=== PATIENT | female | born 1950 | race African-American/Black ===

== ENCOUNTER 2016-05-12 13:49 | Inpatient (IN) | payer OTHER ==
[2016-05-12 14:08] LABS: ALLEN TEST NO; BE -8.9 mmoll (-3.0-3.0); BLOOD TYPE ARTERIAL; DRAW SITE R FEMORAL; METHB 1.4 % (0.0-1.5); PCO2(98.6) 27 mmHg (35-45); PO2(98.6) 589 mmHg (60-100); SAMPLE BLOOD; SAO2 99.5 % (95.0-100.0); THB 10.5 g/dL (11.5-17.4); pH(98.6) 7.36 (7.35-7.45)
[2016-05-12 14:12] LABS: MODALITY AMBU BAG
[2016-05-12 14:26] LABS: MANUAL DIFF NEEDED? NO
--- NOTE | 2016-05-12 14:34 | PROVIDER DOCUMENTATION ---
HPI-Cardiopulmonary Arrest - General Source: patient - History of Present Illness-C/P Arrest Reason for Code Blue?: full arrest Witnessed arrest?: No Bystander CPR?: Yes (family member ) CPR initiated before doctor arrival?: Yes (family member ) Down-time before ACLS?: unknown Initial Findings: unresponsive Treatment initiated prior to doctor arrival?: Initiated intubated, Initiated CPR /thumper (thumper), Initiated IV fluids, Initiated epinephrine #mg (4) Similar Symptoms Previously?: No Recently seen or treated by another doctor?: Yes (seen Thursday in ED ) - Pre-hospital Treatment EMS Initial Findings:: unresponsive Pre-hospital Treatment: Initiated intubated, Initiated CPR, Initiated IV fluids , Initiated epinephrine - General Chief Complaint: Full Arrest Stated Complaint: Full Arrest Time Seen by Provider: 05/12/16 14:05 Allergies/Adverse Reactions: Allergies Allergy/AdvReac Type Severity Reaction Status Date / Time No Known Allergies Allergy Verified 04/14/16 19:20 Home Medications: Home Medication List Medication Instructions Recorded Confirmed Last Taken Type Carvedilol [Coreg] 12.5 mg PO BID 12/24/11 05/12/16 05/12/16 09:00 History 12.5 MG Simvastatin [Zocor] 20 mg PO DAILY 12/24/11 05/12/16 05/12/16 09:00 History 20 MG Loratadine [Claritin] 10 mg PO DAILY 01/22/12 05/12/16 05/12/16 09:00 History 10 MG Trazodone [Desyrel] 50 mg PO QHS 01/22/12 05/12/16 05/12/16 09:00 History 50 MG Omeprazole [Prilosec] 20 mg PO QPM #0 capsule 10/28/12 05/12/16 05/12/16 09:00 Rx 20 MG Cinacalcet [Sensipar] 30 mg PO DAILY 05/08/13 05/12/16 05/12/16 09:00 History 30 MG Donepezil [Aricept] 10 mg PO DAILY 01/18/14 05/12/16 05/12/16 09:00 History 10 MG Calcium Acetate [Phoslo] 1,334 mg PO TID CC #0 tablet 01/24/14 05/12/16 09:00 Rx 1334 MG Nitroglycerin Sl [Nitroglycerin] 0.4 mg SL PRN PRN #0 tablet 01/24/14 05/12/16 05/12/16 09:00 Rx 0.4 MG Beaver-3 Fatty Acids [Fish Oil 1,000 mg PO BID #0 capsule 01/24/14 05/12/1605/12 09:00 Rx Concentrate] 1000 MG Mirtazapine [Remeron] 30 mg PO DAILY 07/13/14 05/12/16 05/12/16 09:00 History 30 MG Albuterol Sulfate [Proair 2 puff IH Q6H PRN PRN 08/01/15 05/12/16 05/12/16 09: 00 History Respiclick] 2 PUFF Hydrocodone/Acetaminophen [[place] 1 each PO PRN PRN 08/01/15 05/12/16 05/12/16 09 :00 History 7.5-325 Tablet] 1 EACH Acetaminophen with Codeine 1 each PO Q6H PRN PRN #10 tablet 04/13/16 05/12/16 09:00 Rx [Tylenol with Codeine #3] 1 EACH Cephalexin [Keflex] 500 mg PO BID #14 capsule 04/14/16 05/12/16 05/12/16 09:00 Rx 500 MG Hydrocodone/APAP 7.5 mg/325 mg 1 each PO Q6H PRN PRN #10 tablet 04/14/1605/12/16 09:00 Rx [[place]-7.5] 1 EACH Cephalexin [Keflex] 500 mg PO Q6HR #28 capsule 05/10/16 05/12/16 05/12/16 09:00 Rx 500 MG Guaifenesin/D-Methorphan Hb/PE 1 each PO Q6-8H PRN PRN #14 tablet 05/10/1605/1205/12/16 09:00 Rx [Deconex Dmx Tablet] 1 EACH Memantine HCl [Namenda] 10 mg PO DAILY 05/12/16 05/12/16 05/12/16 09:00 History 10 MG - History of Present Illness-C/P Arrest Initial Comments: Pt is 66 y/o F presents to the ED via EMS for full arrest. EMS states that Pt's family was taking Pt to PCP due to AMS and family member went to get a wheelchair and when family member came back Pt was unresponsive. EMS states family member started CPR in car. EMS states epi given times 4 prior to EMS arrival. Pt was intubated CAR SCRUBBER by EMS. Pt arrived with tube in place and gaby in position and on. Gaby stopped at 1343 and pulse check and no pulse found and Gaby resumed. Pt had IO placed at 1346. Pt was given epi at 1347 and bicarb at 1348. Gaby stopped at 1349 with no pulse found and then Gaby resumed. Pt was given at 1351. Gaby was stopped and pulse was found per Dr. Yoo. Pt was given 2mg narcan at 1355. Pt was given epi and 150 mg of amiodarone at 1357 (Nisha Goldstein) Review of Systems - Adult - REVIEW OF SYSTEMS - ADULT ROS:: unobtainable per condition Constitutional: reports: no symptoms reported Eyes: reports: no symptoms reported Ears, Nose, Mouth & Throat: reports: no symptoms reported Cardiovascular: reports: no symptoms reported Respiratory: reports: no symptoms reported Gastrointestinal: reports: no symptoms reported Genitourinary: reports: no symptoms reported Musculoskeletal: reports: no symptoms reported Integumentary: reports: no symptoms reported Neurological: reports: no symptoms reported Psychiatric: reports: no symptoms reported Endocrine: reports: no symptoms reported Hematologic/Lymphatic: reports: no symptoms reported Allergic/Immunologic: reports: no symptoms reported All Other Systems: Reviewed and Negative Past History - Adult - PAST MEDICAL HISTORY-ADULT Review of Records: reports: Nursing Assessment Review, Medications Reviewed, Social history reviewed & non-contributory. Major Childhood Illnesses: reports: denies history Cardiovascular: reports: cardiac disease, CHF, HTN, hyperlipidemia, murmur Respiratory: reports: COPD Gastrointestinal: reports: denies history Obstetrical/Gynecological: reports: other (hx of right breast cancer) Genitourinary: reports: dialysis (Tuesdays, and Saturdays), ESRD, kidney disease Musculoskeletal: reports: chronic pain, intervertebral disc disease, neck/back injury Neurological: reports: Alzheimer's, CVA Psychiatric: reports: depression Endocrine/Immune: reports: denies history Other Conditions: reports: denies history - PRIOR SURGERIES/PROCEDURES Surgical/Procedure History: reports: BTL, back/neck (back Sx), other (right breast mestectomy, dominic hammertoe Sx) - PRIOR HOSPITALIZATIONS Prior Hospitalizations: reports: for other non-related - IMMUNIZATION STATUS Childhood Immunizations: See Nurse Assessment Flu Vaccine: See Nurse Assessment - FAMILY HISTORY Family History: reviewed, not pertinent - SOCIAL HISTORY Smoking: quit less than 1 year, cigarettes Provider spent 3-5 mins advising pt. on dangers of tobacco.: Discussed manners to quit use, and f/u contacts for add'l counseling. Substance Use: denies Living Situation: family Physical Exam-General - PHYSICAL EXAM-ADULT Initial Vital Signs Reviewed: Yes - CONSTITUTIONAL General Appearance: severe distress. negative: appears well (ill in appearance) , alert - EYES Eyes: pink conjunctivae, fundi clear, no AV nicking, other (pupils dilated and non reactive) - HEAD, EARS, NOSE, MOUTH & THROAT HENMT: normocephalic/atraumatic, other (tube placed). negative: moist mucous membranes (dry) - NECK Neck: supple - RESPIRATORY Respiratory: other (tube in place and ambu bag in use) - CARDIOVASCULAR Cardiovascular: normal peripheral pulses, regular rate, rhythm, no edema, no gallop, no JVD - GASTROINTESTINAL (ABDOMEN) Abdominal Exam: soft, no organomegaly, no pulsatile mass. negative: distended - LYMPHATIC Lymphatic: no adenopathy - MUSCULOSKELETAL Extremity: slow capillary refill. negative: normal gait, no pedal edema - SKIN Integumentary: normal turgor, warm/dry, pallor - NEUROLOGIC Neurologic: negative: camp assistant II-XII nml as tested, grossly normal, no motor/ sensory deficits - PSYCHIATRIC Psych/Mental Status: negative: normal mood/affect, normal thought content, normal thought process, oriented x 3 Progress - EKG 1 Time of EKG reading by physician:: 14:07 EKG Read and Signed by:: Jennifer Yoo EKG Interpretation (*Must complete 3 of following elements*): Abnormal Rate: 52 Rhythm: wide QRS rhythm Comments: L axis deviation; septal infarct, age undetermined; ST depression in V4-V6 2 Time of EKG reading by physician:: 14:21 EKG Read and Signed by:: Jennifer Yoo EKG Interpretation (*Must complete 3 of following elements*): Abnormal Rate: 90 Rhythm: normal sinus rhythm Comments: septal infarct, age undetermined; no STEMI; ST depression in 2,3, AVR - XRAY 1 XRAY: Bilateral XRAY Study: Chest Impression: Abnormal XRAY Interpretation: ETT looks good. Pulm edema - CT/MRI 1 CT Study: Cervical Spine (multilevel degenerative disease. associated moderate spinal stenosis at C5 and C6. No evidence of fracture or subluxation. ill- defined infiltrates noted at the visualized bilateral lung apices.), Head ( stable exam compared to 05/10/2016. no visible acute process. no hemorrhage or mass effect) Impression: Abnormal - CONSULTS/PCP/HOSPITALIST Notification #1 *Consult/PCP/Hospitalist*: Dr. Guzmán Time Discussed: 16:53 (Dr. Guzmán accepted admit ) Reason/Comments: Dr. Yoo consulted with Dr. Guzmán about admit of PT Consult Disposition: Admit - PLAN OF CARE/RESULTS Progress/Plan/Lab Results: Laboratory Tests 05/12/16 05/12/16 14:05 14:08 WBC 4.40 L RBC 3.12 L Hgb 10.1 L Hct 31.9 L MCV 102.2 H MCH 32.4 H MCHC 31.7 L RDW Std Deviation 15.0 H Plt Count 77 L MPV 11.8 H Immature Gran % (Auto) 1.4 H Neut % (Auto) 56.2 Lymph % (Auto) 38.0 [place] % (Auto) 3.4 Eos % (Auto) 0.5 Baso % (Auto) 0.5 Immature Gran # (Auto) 0.06 H Neut # (Auto) 2.48 Lymph # (Auto) 1.67 [place] # (Auto) 0.15 Eos # (Auto) 0.02 Baso # (Auto) 0.02 Specimen Type ARTERIAL Sample Site R FEMORAL pH 7.36 pCO2 27 L pO2 589 H HCO3 18.0 L Base Excess -8.9 L Oxyhemoglobin 97.2 ABG O2 Sat (Calculated) 16.0 ABG O2 Saturation 99.5 ABG Carboxyhemoglobin 0.90 ABG Methemoglobin 1.4 James Test NO A-a O2 Difference 90.0 Total Hemoglobin 10.5 L Lactate 9.60 H* Liter Flow 15.0 Blood Gas Modality AMBU BAG FiO2 % 100.0 Orders Category Date Time Status Cardiac Monitoring DIRECTED Care 05/12/16 14:05 Active Saline Loc NOW Care 05/12/16 14:05 Active CHEST-PORTABLE [RAD] Stat Exams 05/12/16 14:06 Taken HEAD/C-SPINE W/O CONTRAST [CT] Stat Exams 05/12/16 14:37 Ordered ABG [RESP] Routine Lab 05/12/16 14:05 Completed CBC WITH ELECTRONIC DIFF [HEME] Stat Lab 05/12/16 14:08 Results CK PROFILE [SP CHEM] Stat Lab 05/12/16 14:08 Received COMPREHENSIVE METABOLIC PANEL [CHEM] Stat Lab 05/12/16 14:08 Received D-DIMER [CHEM] Stat Lab 05/12/16 14:08 Received MAGNESIUM [CHEM] Stat Lab 05/12/16 14:08 Received PRO B-NATRIURETIC PEPTIDE Stat Lab 05/12/16 14:08 Received PROTIME WITH INR [COAG] Stat Lab 05/12/16 14:08 Received PTT [COAG] Stat Lab 05/12/16 14:08 Received TROPONIN T Stat Lab 05/12/16 14:08 Received Dextrose 5%-0.45% NaCl Inj [D5 1/2 Ns] 250 ml Med 05/12/16 14:30 Active Norepinephrine [Levophed] 8 mg IV As Directed Ventilator Order Stat Oth 05/12/16 14:35 Active Vital Signs - 24 hr 05/12/16 05/12/16 05/12/16 13:57 14:16 14:35 Pulse Rate 61 102 H 68 Respiratory 17 Rate Blood Pressure 204/105 170/105 119/72 O2 Sat by Pulse 93 L Oximetry 05/12/16 05/12/16 14:36 14:41 Pulse Rate 95 H 63 Respiratory 14 20 Rate Blood Pressure 109/69 O2 Sat by Pulse Oximetry (Nisha Goldstein) Departure - Departure Time of Disposition Order: 16:52 Certified Medical Emergency: Emergent - Critical Care Note Total Time (mins): 35 Critical Care Statement: This patient required my direct personal management to treat or rule out processes, the absence of which, could potentiallly result in sudden, clinically significant life or limb threatening deterioration. - Departure DIAGNOSIS: Cardiac arrest, Elevated d-dimer Pulmonary edema Qualifiers: Chronicity: acute Qualified Code(s): J81.0 - Acute pulmonary edema Disposition: ADMITTED INPATIENT 09 Condition: Stable Attestation - Scribe Verification/Attestation Scribe:: Nisha Goldstein Acting as Scribe for:: Jennifer Yoo Scribe documention review:: This chart was documented by a scribe and accurately reflects the service the provider performed and the decisions made by the provider. Physician Attestation
[2016-05-12 14:45] LABS: BASO% 0.5 % (0.0-0.8); EOS# 0.02 X1000 (0.0-0.7); EOS% 0.5 % (0.0-10.0); HEMATOCRIT 31.9 % (37.0-47.0); HEMOGLOBIN 10.1 g/dL (12.0-16.0); IMM GRAN# 0.06 X1000 (0.0-0.04); IMM GRAN% 1.4 % (0.0-0.5); LYMPH# 1.67 X1000 (1.2-3.4); MCH 32.4 PG (27-31); MCHC 31.7 g/dL (33-37); MCV 102.2 FL (81-99); MONO# 0.15 X1000 (0.11-0.59); MONO% 3.4 % (1.7-9.3); MPV 11.8 FL (7.4-10.4); NEUT% 56.2 % (42.2-75.2); PLT 77 X1000 (130-400); RBC 3.12 XMIL (4.2-5.4)
[2016-05-12] MEDS: LEVOPHED 8 MG in D5 1/2 NS 250 ML IV SCH ×3 (14:48→17:02)
[2016-05-12 14:52] LABS: INR 1.24; PROTIME 13.2 Seconds (9.2-11.7); PTT 35.1 Seconds (22.0-36.0)
[2016-05-12] MEDS ORDERED: NS 2,000 ML ONE (15:00)
[2016-05-12 15:06] LABS: ALBUMIN 3.3 g/dL (3.5-5.0); CALCIUM 7.8 mg/dL (8.8-10.2); MAGNESIUM 2.4 mg/dL (1.5-2.7); POTASSIUM 4.5 mmol/L (3.5-5.1); TOTAL BILIRUBIN 0.33 mg/dL (0.20-1.00); TOTAL PROTEIN 6.1 g/dL (6.3-8.3)
[2016-05-12 15:32] LABS: CK INDEX 2.1 (0.0-2.5); CK-MB 4.8 ng/mL (0.0-5.0)
--- NOTE | 2016-05-12 15:39 | Diag Imaging Result Document ---
PROCEDURE NAME: CHEST-PORTABLE - 05/12/2016 PORTABLE SUPINE CHEST: COMPARISON: 05/10/2016. FINDINGS: An endotracheal tube has been placed. The tip lies approximately 4 cm above the munira. The heart is mildly prominent. Mild increased interstitial markings believed to be pulmonary edema. No consolidation. No pleural effusion is identified. IMPRESSION: 1. Endotracheal tube is in good position. 2. Infiltrates believed to be pulmonary edema with mild cardiomegaly.
[2016-05-12] MEDS ORDERED: EPINEPHRINE 4 MG in NS 250 ML IV SCH (15:45)
--- NOTE | 2016-05-12 15:48 | Diag Imaging Result Document ---
PROCEDURE NAME: HEAD/C-SPINE W/O CONTRAST - 05/12/2016 CT HEAD WITHOUT CONTRAST: TECHNIQUE: A dose reduction protocol was used. COMPARISON: 05/10/2016. FINDINGS: There are mild atrophic changes and mild chronic appearing microvascular ischemic changes similar to the previous exam. There is no evidence of recent infarct, although acute infarcts may not be immediately visible. There are chronic basal ganglia calcifications noted. There is no evidence of intracranial hemorrhage, mass effect, midline shift, or hydrocephalus. There is no skull fracture. IMPRESSION: Stable exam compared to 05/10/2016. No visible acute process. No hemorrhage or mass effect. CT CERVICAL SPINE WITHOUT CONTRAST: TECHNIQUE: A dose reduction protocol was used. Axial and reformatted sagittal and coronal images are obtained. COMPARISON: No comparison exam. FINDINGS: There is multilevel degenerative disease. There are associated posterior osteophytes and calcified posterior longitudinal ligament which produce moderate spinal stenosis at C5 and C6. There is no fracture identified. There is no subluxation identified. There are atherosclerotic calcifications noted at the left carotid bulb region. There are ill- defined infiltrates noted at the bilateral lung apices. IMPRESSION: 1. Multilevel degenerative disease. Associated moderate spinal stenosis at C5 and C6. No evidence of fracture or subluxation. 2. Ill-defined infiltrates noted at the visualized bilateral lung apices.
[2016-05-12] MEDS ORDERED: LASIX IV ONE (16:11)
[2016-05-12] MEDS: NS 1,000 ML IV ONE ×2 (16:16→17:01)
[2016-05-12] MEDS ORDERED: NS 1,000 ML IV ONE (16:17)
[2016-05-12] MEDS ORDERED: DUONEB (A & A) INH PRN (18:26)
[2016-05-12 18:59] LABS: ALLEN TEST YES; BLOOD TYPE ARTERIAL; DRAW SITE R RADIAL; METHB 1.2 % (0.0-1.5); MODALITY VENTILATOR; O2(CT) 12.3 mL/dL (15.0-23.0); PCO2(98.6) 43 mmHg (35-45); PO2(98.6) 67 mmHg (60-100); SAMPLE BLOOD; SAO2 92.6 % (95.0-100.0); SRATE 18 BPM; THB 9.6 g/dL (11.5-17.4); TVOL 400 mL
[2016-05-12] MEDS ORDERED: NS ONE (19:00)
[2016-05-12] MEDS ORDERED: LR ONE (19:00)
[2016-05-12] MEDS ORDERED: CORDARONE ONE (19:00)
[2016-05-12] MEDS ORDERED: SODIUM BICARBONATE 8.4% ONE (19:00)
[2016-05-12] MEDS ORDERED: EPINEPHRINE SYRINGE ONE (19:00)
[2016-05-12 19:07] LABS: FREE T4 0.88 ng/dL (0.93-1.70)
[2016-05-12] MEDS: DUONEB (A & A) INH SCH ×2 (19:28→22:56)
[2016-05-12] MEDS: NS 1,000 ML IV SCH (19:30)
[2016-05-13] MEDS ORDERED: VALIUM IV ONE (00:35)
[2016-05-13] MEDS ORDERED: DIPRIVAN 1% 100 ML ONE (02:24)
[2016-05-13] MEDS: DIPRIVAN 1% 100 ML IV SCH ×4 (02:34→20:46)
[2016-05-13] MEDS: DUONEB (A & A) INH SCH ×6 (02:55→23:14)
--- NOTE | 2016-05-13 04:22 | HISTORY AND PHYSICAL ---
HISTORY OF PRESENT ILLNESS: Ms. Murray apparently was having a little more trouble with her speech and a little more trouble with her writing. She has residual dysphagia from a previous CVA. They noticed that her writing maybe had improved on Thursday. At any rate, she is also in end- stage renal disease. Brought her in. I believe that the story was they brought her into Dr. Valverde's office and was waiting in the waiting room when she became unresponsive, started drooling. They started CPR. They gave her a couple of epinephrine, I think 1 atropine. They have given her some amiodarone. Continued the CPR when she got here in the emergency room for a good 15 minutes and did get a complex back and she was intubated. They denied any history of chest pain, fever, chills, or pleuritic pain. PAST MEDICAL HISTORY: This is a 66-year-old, black female: 1. End-stage renal disease. 2. Congestive heart failure. 3. Dyslipidemia. 4. Depression. 5. Expressive aphasia. 6. Probably some vascular dementia. PAST SURGICAL HISTORY: She has had back surgery. She has had a right mastectomy, had toe surgery. FAMILY HISTORY: Noncontributory according to old records. SOCIAL HISTORY: No tobacco or ethanol. ALLERGIES: Reports no known drug allergies in the past. REVIEW OF SYSTEMS: I am unable to get review of systems except according to family as above. PHYSICAL EXAMINATION: VITAL SIGNS: In the emergency room, pulse was in the 60s, respiration rate set on the ventilator 15, blood pressure has been pretty good 120s-140s systolic and diastolic 60s-70s. Pulse 80. Saturations were 99% on mechanical ventilator. Weight 171 pounds. Height 5 feet 9 inches. LUNGS: Clear anterolateral. CARDIOVASCULAR: Regular rhythm and rate. Appears to be in sinus rhythm on the monitor. ABDOMEN: Nontender and nondistended. Positive bowel sounds. EXTREMITIES: Without clubbing, cyanosis, or edema. Right arm with AV fistula, palpable bruit. Extremities warm. VASCULAR: Carotid, radial, and femoral pulses appear to be 2+ and symmetrical. LABORATORY DATA: White count 4400, hematocrit 31, platelet count 77,000. Sodium 135, potassium 4.5, chloride 88, bicarb 18, BUN 50, creatinine 7.7, blood sugar 223, calculated osmolality 290, calcium 7.8, magnesium 2.4. Liver functions: AST 65, ALT was 45, alkaline phosphatase 85. Troponin was 0.041. ProBNP was 35,000. Prothrombin time 13.2, PTT 35. Blood gases: PH is 7.36, pCO2 of 27, PO2 was 589, O2 saturation 97%. Her lactic level was 9.6. Is on 100% Ambu bag when they get the blood gases. Micro respiratory specimen sent, 1+ white blood cells, rare epithelial, gram positive is 1+ so nonspecific. Chest x-ray report: Endotracheal tube in good position, infiltrates believed to be pulmonary edema, mild cardiomegaly. Head and cervical spine CT: Stable exam compared to 05/10/2016. No visible acute process. There are mild atrophic changes. Mild chronic appearing microvascular ischemic changes similar to the previous exam. No evidence of recent infarct, although acute infarction is not immediately visible. Multilevel degenerative disease in the cervical spine, C5 and C6 with spinal stenosis. No evidence of fracture or subluxation. Ill-defined infiltrates in the lung apices. Status post cardiac, respiratory arrest. It sounds like it may have been primary respiratory with pulmonary venous hypertension. Unknown if there is some underlying ischemia. Initial troponin is elevated, although that is fairly nonspecific, especially with end-stage renal disease. She is intubated at the present time. We will check serial cardiac enzymes, troponin and CPK. Her electrocardiogram shows a wide QRS complex, left axis deviation, nonspecific T-wave inversion in the inferior and anterolateral leads. No specific evidence of ischemia. Looking back, she has had an echocardiogram done on 08/01/2015, read by Dr. Blanca Tong. Left ventricle normal size, mild concentric hypertrophy with preserved overall systolic function. Ejection fraction 50-55%. Could not exclude very subtle hypokinesis in the very basal portion posterolateral wall. The right ventricle was intact with preserved right ventricular function. Pulmonary pressures were 35- 40. Incidental finding, abdominal aorta appears to be calcified. Could not exclude slight dilatation of abdominal aorta. ASSESSMENT AND PLAN: 1. Primary respiratory arrest, appears possible flash edema, pulmonary venous hypertension. Could be some underlying ischemia. I think we are going to have to repeat the echocardiogram and compare it to the one done on 08/01/2015. Also, we will probably get an abdominal ultrasound. They mention there was a possibility of abdominal aneurysm, aortic aneurysm, so we have to visualize that. We will keep her on the ventilator, try and diurese her. Ask cardiology to assist in workup and get pulmonary involved as well. See if we can extubate. 2. End-stage renal disease. I suspect we are going to need help with volume from hemodialysis. We will get Dr. Posadas involved. Intravenous Lasix will be very ineffective. Blood pressures look good. We may consider some nitrates, depending on what cardiology wants to do. 3. Diabetes mellitus type 2. Check patterned sugars. 4. History of cerebrovascular accidents in the past with expressive aphasia. The CT scan does not show anything new. We will see how she does neurologically. May need further radiographic evaluation including an MRI of her head, depending on how we do. 5. History of hyperlipidemia. We will check a lipid profile again and see how we are doing. 6. Note, she has had a history of cerebrovascular accident. There is some note about possible vascular dementia and she has had chronic residual expressive aphasia in the past. Aware.
[2016-05-13 04:39] LABS: ALLEN TEST YES; BE -4.9 mmoll (-3.0-3.0); BLOOD TYPE ARTERIAL; DRAW SITE R RADIAL; METHB 1.7 % (0.0-1.5); O2(CT) 17.9 mL/dL (15.0-23.0); PCO2(98.6) 39 mmHg (35-45); PO2(98.6) 121 mmHg (60-100); SAMPLE BLOOD; SAO2 98.9 % (95.0-100.0); SRATE 18 BPM; THB 13.2 g/dL (11.5-17.4); TVOL 400 mL; pH(98.6) 7.33 (7.35-7.45)
[2016-05-13 04:41] LABS: MODALITY VENTILATOR
--- NOTE | 2016-05-13 05:56 | EKG Report ---
Test Performed on : 05/12/2016 2:21:36 PM Test Reason : No Order in [employer] Blood Pressure : / mmHG Vent. Rate : 090 BPM Atrial Rate : 090 BPM P-R Int : 196 ms QRS Dur : 098 ms QT Int : 412 ms P-R-T Axes : 061 -26 020 degrees QTc Int : 504 ms Normal sinus rhythm. Septal infarct (cited on or before 21-SEP-2012) Abnormal ECG When compared with ECG of 01-AUG-2015 05:59, T wave inversion no longer evident in Inferior leads Nonspecific T wave abnormality has replaced inverted T waves in Lateral leads QT has lengthened Unconfirmed Result
[2016-05-13 06:07] LABS: CALCIUM 7.6 mg/dL (8.8-10.2)
[2016-05-13 06:42] LABS: CK INDEX 2.4 (0.0-2.5); CK-MB 6.73 ng/mL (0.0-5.0)
[2016-05-13] MEDS: NS 1,000 ML IV SCH (07:44)
--- NOTE | 2016-05-13 07:44 | Diag Imaging Result Document ---
PROCEDURE NAME: CHEST-PORTABLE - 05/13/2016 SINGLE FRONTAL RADIOGRAPH OF THE CHEST: COMPARISON: 05/12/2016. FINDINGS: There is a newly placed ET tube with the tip projecting over the trachea and above the munira at about the T4 level. There is an NG tube that projects below the diaphragm and out of the field of view. There are mild bilateral increased interstitial markings that may have slightly improved at the right upper lung zone as compared to the previous study. No new consolidations are identified. Cardiac silhouette is stable. IMPRESSION: Increased interstitial markings similar to the previous study with, perhaps, slight improvement at the right upper lung zone.
--- NOTE | 2016-05-13 08:04 | OPERATIVE NOTE ---
PROCEDURE DATE: 05/12/2016 PREOPERATIVE DIAGNOSIS: Cardiac arrest. POSTOPERATIVE DIAGNOSIS: Cardiac arrest. PROCEDURE PERFORMED: Right femoral central venous line placement. COMPLICATIONS: None. ESTIMATED BLOOD LOSS: 20 mL. SPECIMENS: None. ANESTHESIA: None. OPERATIVE INDICATIONS: A 66-year-old, female who came in as a code to the emergency department. She was coded and ultimately resuscitated. The peripheral access was limited related to her end-stage renal disease. She has had a fistula in her right upper extremity. I infiltrated IV with vasopressor in the left upper extremity. Central access was needed for ongoing resuscitation and vasopressor support. OPERATIVE NOTE: The family had left and were in the process of being contacted regarding her clinical state and the need for the procedure. However, given the urgent nature and lack of intravenous access, emergent central line was indicated. Her right groin was prepped with chlorhexidine solution after confirming the patient and draped in the usual fashion. Using anatomic landmarks, we were able to palpate the femoral pulse in the right groin and access the vein medially. We did access the artery on the first pass. Arterial blood was noted. We held pressure here and accessed more medially. We were able to ultimately access the femoral vein. Dark nonpulsatile venous blood was noted on return. The wire threaded easily. I made a skin keren, dilated the tract using Seldinger technique. Placed a pre-flushed catheter, triple-lumen, 7- Armenian catheter. Placed sterile caps on all lumens. All ports withdrew dark blood and flushed easily. We secured it with a silk suture. Sterile dressing was applied. No identified complications. Tolerated the procedure well.
--- NOTE | 2016-05-13 08:39 | CONSULTATION ---
DATE OF CONSULTATION: 05/12/2016 REQUESTING PHYSICIAN: Dr. Guzmán. REASON FOR CONSULTATION: Cardiopulmonary arrest. HISTORY OF PRESENT ILLNESS: Ms Murray is a 66-year-old black female, end-stage renal disease on hemodialysis, coronary artery disease, prior stroke and aphasia, who is being brought to the family physician for altered mental status when she became unresponsive. The family began CPR in the car and EMS was called. The patient was intubated by EMS and CPR was continued. Exact downtime is unknown, but was at least 8 minutes after arrival to the emergency room. The patient is now on mechanical ventilation. She is requiring Levophed for blood pressure support. She is unresponsive, but does have an occasional startle response with eye opening. PAST MEDICAL HISTORY/PROBLEM LIST: 1. End-stage renal disease on hemodialysis. 2. Coronary artery disease. Current anatomy not known by this practitioner. 3. History of stroke with aphasia. 4. History of congestive heart failure. 5. Depression. 6. Dyslipidemia. 7. Possible vascular dementia. SURGICAL HISTORY: 1. Status post back surgery. 2. History of right mastectomy. SOCIAL HISTORY: Lives with family. No documented alcohol or tobacco use. FAMILY HISTORY: Noncontributory to her current presentation. REVIEW OF SYSTEMS: Cannot be obtained. PHYSICAL EXAMINATION: General: Reveals an elderly black female on mechanical ventilation. She does not respond to voice or pain. She does occasionally startle. She is on vasopressors. Vital Signs: Blood pressure 126/75, heart rate 58, respiration rate 18, oxygen saturation 100%. HEENT: Pupils are midpoint and poorly reactive. Oropharynx evaluation reveals an endotracheal tube in place. Neck: Supple. Chest: Reveals good air entry bilaterally. Cardiac Exam: Decreased rate, regular rhythm. Abdomen: Soft. Extremities: Cold to the touch. LABORATORIES: Arterial blood gas at 1405 hours today revealed a pH of 7.37, pCO2 27, PO2 of 586 with a lactate of 9.6. Repeat arterial blood gas pending. IMAGING: Chest x-ray reveals mild cardiomegaly and pulmonary edema. CT scan of the brain reveals no acute process. IMPRESSION: A 66-year-old with end-stage renal disease, coronary artery disease, prior stroke, who has sustained a cardiopulmonary arrest. The patient has had a significant downtime before return of spontaneous circulation. RECOMMENDATIONS: 1. Continue full ventilatory support. 2. Vasopressors as needed to maintain a mean arterial pressure greater than 65. 3. Routine gastric acid suppression. 4. Reduce oxygen concentration as necessary to prevent hyperoxia. 5. Additional recommendations pending hospital course. With the underlying vascular issues, prolonged CPR, full recovery is not expected.
[2016-05-13 09:07] LABS: CK INDEX 2.2 (0.0-2.5); CK-MB 5.58 ng/mL (0.0-5.0)
--- NOTE | 2016-05-13 09:11 | Diag Imaging Result Document ---
PROCEDURE NAME: US ABDOMEN-COMPLETE - 05/12/2016 COMPLETE ABDOMINAL ULTRASOUND: COMPARISON: 09/17/2015. FINDINGS: No gallstones are appreciated. However, the gallbladder wall appears to be at least mildly thickened measuring up to 4 mm. It also appears edematous, and there is trace fluid tracking around the gallbladder. Cholecystitis cannot be excluded. However, sonographic Landaverde's sign was reported to be negative by the technologist. The common bile duct is within normal limits measuring up to 6 mm in diameter. The tail of the pancreas is obscured by bowel gas. The remainder of the pancreas is unremarkable. The liver, spleen, and IVC are grossly unremarkable. There is aortic atherosclerotic calcification. The distal aorta is obscured, so no aneurysm can be excluded distally. No definite aneurysm can be identified involving the visualized portion of the aorta. Both kidneys are atrophic and exhibit increased echotexture, which is a nonspecific indicator of medical renal disease. The right kidney measures up to 7.1 cm and the left kidney measures up to 7.2 cm in the greatest dimensions. There are multiple cysts involving both kidneys. The largest on the right measures up to 1.8 cm and the largest on the left measures up to 2.3 cm in the greatest dimensions. No definite solid renal mass can be identified sonographically. There is no evidence of hydronephrosis. IMPRESSION: 1. Gallbladder wall thickening with suggestion of wall edema and pericholecystic fluid. Cholecystitis cannot be excluded. However, there are no gallstones and the sonographic Landaverde's sign was reported to be negative by the technologist. Please correlate clinically. 2. No discrete aneurysm can be identified involving the visualized portion of the aorta. However, the distal aorta is obscured by bowel gas, and an aneurysm here cannot be excluded. 3. Bilateral atrophic echogenic kidneys, which is a nonspecific indicator of medical renal disease as well as multiple bilateral renal cysts.
--- NOTE | 2016-05-13 09:16 | CONSULTATION ---
DATE OF CONSULTATION: 05/13/2016 REQUESTING PHYSICIAN: Hospitalist service. REASON FOR CONSULTATION: The patient suffered an [id number] cardiac arrest. CPR given. The patient is in the intensive care unit unresponsive. HISTORY: Mrs. Murray is an unfortunate 66-year-old black female who has been previously followed by Dr. Blanca Tong and Dr. Garrick Valverde. Apparently, she suffered an out-of- hospital cardiac arrest when she was at the doctor's office. She was assessed by the emergency medical personnel and required CPR. She was eventually intubated and brought to the ICU for further care. Initially, the patient required Levophed. However, at this time she is not on any pressors. PAST HISTORY: Her past history can only be obtained through review of the records. The patient has a history of end-stage renal disease. She has been on hemodialysis for some time. She has had a history of hypertension. The patient has a history of breast cancer in the past. She had a stroke with some expressive aphasia. She has previously undergone cardiac catheterization in January of 2014, precisely after a cardiac arrest. At that time, Dr. Gilbert Pate stated that the patient had only mild to moderate coronary heart disease without any flow-limiting lesions. Of note, the electrocardiogram obtained on the day of the event does not seem to be much different than other electrocardiograms that we have on record. SURGICAL HISTORY: Positive for back surgery, mastectomy. She has had a tubal ligation. She has had hammertoe surgery. SOCIAL HISTORY: She is . She has 5 children. Not a drinker, not a smoker. FAMILY HISTORY: Positive for coronary heart disease. REVIEW OF SYSTEMS: At this time could not be obtained. The patient is intubated. Family is not around. HOME MEDICATIONS: Her home medications at the time of initial evaluation are the following: She is on Namenda 10 mg daily, trazodone 50 mg at bedtime, Zocor 10 mg daily, Prilosec 20 mg at bedtime, nitroglycerin 0.4 mg sublingual, mirtazapine 30 mg daily, Claritin 10 mg daily, hydrocodone/APAP q.6 h., guaifenesin/dextromethorphan q.6 h., Aricept 10 mg daily, Sensipar 30 mg, cephalexin 1200 q.6 h., carvedilol 12.5 twice a day, calcium acetate--PhosLo 1334 mg t.i.d., albuterol inhaler. ALLERGIES: Negative. On the review of old records, there is a mention of an abdominal aortic aneurysm that apparently was only mild in severity. She also has a history of dyslipidemia. PHYSICAL EXAMINATION TODAY: Blood pressure off pressors is 122/78, temperature is 95.9, pulse 62, respirations 18. General: She is unresponsive. She has some jerking motion. HEENT: Unremarkable. Chest: Symmetrical breath sounds. Cardiac: Heart sounds are regular and rhythmic. I do not hear any gallop or murmur. Abdomen: Nontender, not distended, and no hepatomegaly. Bowel sounds diminished. Extremities: Actually good dorsalis pedis pulses bilaterally. There is no peripheral edema. BLOOD WORK TODAY: Sodium 134, potassium 4.0, BUN 62, creatinine 8.2. Troponins have been checked 3 times: 0.041, 0.070, 0.072. ProBNP greater than 35,000. IMAGING: Chest x-ray consistent with pulmonary edema. EKG: EKG, as I said, shows no acute ischemic changes. IMPRESSION: 1. Patient who presented with an [id number] cardiac arrest. At this time, she has some signs suspicious for anoxic encephalopathy. 2. History of end-stage renal disease on hemodialysis. 3. History of hypertension. 4. History of previous stroke. 5. History of cognitive impairment. RECOMMENDATION: At this point in time, conservative care is probably the best thing we can do. She appears to be hemodynamically stable. I would recommend a neurology consultation with Dr. Harris who is familiar with the case. If she has severe postanoxic encephalopathy, then her prognosis would be really very ominous, and our therapeutic options would be very limited. Thank you again for the opportunity to participate in her evaluation. Will follow her accordingly. [facility]
[2016-05-13] MEDS: LOVENOX SUBQ SCH (09:39)
[2016-05-13] MEDS: NS IV ONE ×2 (10:20→10:36)
[2016-05-13] MEDS: CEREBYX IV ONE ×2 (10:20→10:36)
[2016-05-13] MEDS ORDERED: NS 2,000 ML ONE (10:38)
[2016-05-13] MEDS: LEVOPHED 8 MG in D5 1/2 NS 250 ML IV SCH (12:00)
[2016-05-13] MEDS ORDERED: ATIVAN IV ONE (15:55)
--- NOTE | 2016-05-13 16:11 | CONSULTATION ---
DATE OF CONSULTATION: 05/13/2016 REASON FOR ADMISSION: Respiratory/cardiac arrest. REASON FOR CONSULT: ESRD with assistance with medical management. CONSULTING PHYSICIAN: Dr. Guzmán. HISTORY OF PRESENT ILLNESS: Cassandra Murray is a 66-year-old female who is known to our outpatient services for hemodialysis on Thursday, , Thursday. The patient apparently was having trouble with her speech and trouble with writing. She has a history of a CVA with residual dysphasia and droop to the left mouth. She does write any of her questions or information that she is requesting at the dialysis unit. Family states that they had noticed that her writing had gotten a little bit better but by yesterday afternoon she was not well. She was brought to Dr. Valverde's office by her family. Family had gone into the waiting room and patient became unresponsive. She was initially placed on the floor. CPR was started. They gave her epinephrine and possibly 1 atropine. It is stated that she was possibly given a dose of amiodarone. They continued CPR which was continued in transport to [facility]'s Emergency Department. Patient was intubated in the emergency department and transferred to ICU. She is currently on an epinephrine drip for vaso support. She is intubated. She is on propofol. She is unresponsive she has no corneal reflex. She does have some twitching to her body from her head down into her toes after the propofol was discontinued, though no spontaneous breathing. Family is not available at this time, though on initial admission it was stated that she had denied chest pain, fever, chills, pleuritic pain, increased work of breathing. PAST MEDICAL HISTORY: End-stage renal disease with hemodialysis on Thursday, , Thursday at the [facility], history of a CVA, congestive heart failure, dyslipidemia, depression, CVA with expressive aphasia, vascular dementia. She has anemia secondary to chronic disease. She also has osteodystrophy secondary to chronic disease. PAST SURGICAL HISTORY: Back surgery, right mastectomy, toe surgery. She has had a tunnel catheter placement and an AV fistula placement. FAMILY HISTORY: Positive for ESRD. SOCIAL HISTORY: She lives with her family. There is no documented alcohol or tobacco use. CURRENT ALLERGIES: No known drug allergies. HOME MEDICATIONS: Listed as Coreg, Zocor, Desyrel, Claritin, Prilosec, Sensipar , Aricept, nitroglycerin sublingual, fish oil, PhosLo, Remeron, [place], ProAir RespiClick which is albuterol, Tylenol with codeine, Keflex, hydrocodone APAP, guaifenesin, Namenda. Patient also receives Proteinex, Ferrlecit, Aranesp, and Rocaltrol as indicated as needed at the outpatient clinic. REVIEW OF SYSTEMS: Times 10 as best obtained per chart. Unable to obtain per patient. VITAL SIGNS: Her most recent vital signs. Her last temperature is 95.9 degrees , blood pressure 128/77, heart rate 59, respirations 18. She is on 35% FiO2. She has 100% SpO2. She has had 3091 in. She has had 250 mL out per NG tube. LABS: This a.m., sodium 134, potassium 4, chloride 93, CO2 19, BUN 62, creatinine 8.2, glucose 99. Her anion gap is 22. Calcium is 7.6. She has elevated troponins and CPKs. Her albumin on admission is 3.3. TSH was 1.66, free T4 is 0.88. Her white count 4.4, hemoglobin 10.1, hematocrit 31.9, with a platelet count of 77,000. Sputum culture shows no growth for preliminary. Chest x-ray done this a.m. shows increased interstitial markings similar to previous study. Slight improvement in right upper lobe lung sounds. PHYSICAL EXAMINATION: General: This is a 66-year-old female. She is currently resting quietly. She is ventilator dependent. She is sedated. Skin: Warm and dry. HEENT: Normocephalic, atraumatic. Conjunctiva is pale. Mucous membranes are dry. Neck: Supple. Trachea midline. No JVD. Cardiovascular: She is regular rate and rhythm on the monitor. She is without murmur or gallop. Lungs: They are air clear anteriorly. Diminished posterior bases. She remains on vent at 35%. Abdomen: Round, soft, nontender. Positive bowel sounds. Extremities: She has a fistula to the right upper arm. Palpable bruit. She has trace pretibial edema. No clubbing or cyanosis. Genitourinary: Minimal void with hemodialysis assist. Integumentary: No rashes or lesions noted. ASSESSMENT AND PLAN: 1. End-stage renal disease. Patient is due for her routine dialysis treatment today. We will place her on SLED. We will leave her on for [address] her on a 4 K bath, 27 bicarb. We will attempt to pull 4 L as tolerated on her blood pressure support with epinephrine. 2. Electrolytes. These are stable. 3. Acid-base balance. Patient has a mild anion gap acidosis with correction on dialysis. 4. Anemia. This is stable. 5. Cardiopulmonary arrest. Patient has ventilatory support. We appreciate pulmonology following and their input. 6. Shock. Patient does continue on epinephrine. Blood pressure is stable at this time. I would like to thank you for allowing us to follow with this patient. Seen, data reviewed, discussed with Julianne Kearney on 05/13/16. I agree with the above assessment and plan of care. rg Dictated by DIPESH Aguilar for Grey Posadas MD [facility]
[2016-05-13] MEDS ORDERED: VANCOMYCIN IV PER PHARMACY MISC SCH (16:45)
[2016-05-13] MEDS: MAXIPIME 1 GM/NS 50 ML IV SCH (16:56)
--- NOTE | 2016-05-13 17:14 | ECHO REPORT ---
ORDER DATE: 05/12/2016 INTERPRETING PHYSICIAN: Dr. Tanner REQUESTING PHYSICIAN: CLINICAL INDICATIONS: Patient who has suffered a cardiac arrest, respiratory failure, end-stage renal disease. M-MODE MEASUREMENTS: Right ventricle: 3.4 cm. Left ventricle end diastole: 5.4 cm. Left ventricle end systole: 4.0 cm. Posterior wall: 1.3 cm. Interventricular septum: 1.3 cm. Left atrium: 3.3 cm. Aortic root: 3.4 cm. SUMMARY OF 2-DIMENSIONAL IMAGING: The left ventricular chamber is enlarged moderately. The global left ventricular systolic function appears to be within normal range. It is estimated by computer tracing to be in the neighborhood of 56%. No wall motion abnormality appears to be present. The right ventricle is enlarged. It shows good function. The left atrium is significantly dilated. The right atrium is mildly enlarged. The tricuspid valve shows moderate to a moderately severe degree of regurgitation. The inferior vena cava was not visualized. The mitral valve shows a moderate degree of regurgitation. Pulse wave Doppler of mitral inflow shows "normal" E/A ratio. Tissue Doppler of septal and lateral mitral annulus averages 5 cm per second. The E/E prime ratio is elevated indicating elevated left atrial pressure. The pulse wave Doppler of pulmonary venous flow is normal. There is impaired left ventricular relaxation. The aortic valve opens normally. Color flow mapping shows no regurgitation. The pulmonic valve shows a mild degree of regurgitation. There is no pericardial effusion, masses nor thrombus. IMPRESSION: In summary, this study shows: 1. Enlarged left ventricular chamber with generally preserved contractility. Ejection fraction estimated at 56%. 2. Impaired left ventricular relaxation. Elevation of left atrial pressure with moderately enlarged left atrium. 3. Moderately severe degree of tricuspid regurgitation with pulmonary systolic pressure in the order of 49-54 mmHg. Clinical correlation recommended.
[2016-05-13] MEDS ORDERED: VANCOMYCIN 1 GM/NS 250 ML IV ONE (18:00)
[2016-05-13] MEDS: KEPPRA 750 MG in NS 100 ML IV SCH (18:04)
--- NOTE | 2016-05-13 18:50 | PROGRESS NOTE ---
DATE: 05/13/2016 SUBJECTIVE: Ms. Murray was intubated and looked remarkably sick. Per the nursing staff, there have not been any remarkable changes. PHYSICAL EXAM: Vital signs: Blood pressure is 116/68, pulse of 64, respiration 29, temperature is 97.3 degrees. General: Ms. Murray 66-year-old female. She was in bed. Continued to be having constant jerking movement, unsure if she is seizing. Neck: Supple. Chest: Good air entry bilateral. A few transmitted sounds from the ventilator. Cardiovascular: Regular rate and rhythm. Abdomen: Soft. No hepatosplenomegaly. Extremities: No pedal edema. LINER MAN: Patient is comatose, does not even respond to very painful stimuli. There does not seems to be any corneal reflex. Pupils are dilated and they are nonreactive. There is no gag reflex and patient continues to have this rhythmic jerky movement of both upper and lower extremities. LABORATORY DATA: No WBC. Sodium is 134, potassium is 4.0, chloride 93, bicarb is 19, creatinine is 8.3. Troponins unremarkable. ASSESSMENT: 1. Status post cardiac arrest. 2. Unresponsiveness/comatose likely due to underlying severe anoxic brain injury. 3. Rhythmic jerky movement. Not sure if patient is continuously seizing or this is just myoclonic jerks from severe anoxic brain injury. We will consult neurology. I will give the patient 2 mg of IV Ativan. She has already been started on Cerebyx. Will follow up with further recommendations from neurology and also I will order an EEG. 4. Shock. Patient continues to be hypotensive and so far the blood pressure has been stabilized on pressors. Will do blood cultures. We will start the patient on broad spectrum antibiotics just to cover the bases. 5. History of a previous cardiovascular/cognitive impairment/hypertension. INCOMPLETE REPORT -- DICTATION ENDS HERE.
[2016-05-13] MEDS: CEREBYX IV SCH (21:07)
--- NOTE | 2016-05-14 00:41 | CONSULTATION ---
DATE OF CONSULTATION: 05/13/2016 HISTORY OF PRESENT ILLNESS: Ms. Murray is 66 years old. She collapsed in yesterday and had cardiac arrest. She was managed with CPR and now is intubated, heavily sedated in the ICU. She never regained consciousness. When propofol dose is stopped, she develops jerking movement in all limbs. There has been question of seizure. History from attentive family at the bedside is that she never had seizure before. This is consistent with history I had taken from her a few years ago. I initially saw her about 3 years ago. There was history then that she had a period of altered consciousness, possible transient coma with likely anoxic brain injury. Following that, she was fully alert and attentive but had trouble communicating with speech which persisted. There was question of cognitive impairment. She was started on donepezil few years ago and tolerated that. There was some concern that she did not take donepezil regularly. When I last saw her 11/22/2014, 17 months ago , plan was to try donepezil 20 mg daily. She did not keep followup with me after that. Her current hospital record indicates home medicines included donepezil 10 mg daily, Memantine 10 mg daily, trazodone, simvastatin, omeprazole, mirtazapine 30 mg daily, loratadine, carvedilol, albuterol, acetaminophen with codeine p.r.n., hydrocodone/acetaminophen p.r.n. Lab work this admission shows WBC 4400, anemia, elevated BUN and creatinine which may be a little worse than baseline after she started dialysis. We do not have urine drug screen this admission. She had noncontrast head CT yesterday reported to show no changes compared to scan done 05/10/2016. The 05/10/2016 scan without contrast was reported to show areas of low attenuation in the white matter bilaterally, left occipital encephalomalacia, no bleeding. On exam, she is supine, intubated, not moving. Propofol was stopped and in several minutes she started having some rapid but arrhythmic jerking movements in the neck and shoulders. There is very limited extraocular movement with passive head turning. Corneal reflex is present but very sluggish bilaterally. Pupils are small and I could not see definite reaction to bright light. Limb tone is equal, not tested vigorously in the right arm. Plantar response is silent bilaterally. Reflexes are absent at the knees and ankles. There is no meningismus. IMPRESSION: Collapse with documented asystole, resuscitation, continued coma, question of clonic seizure activity. I suspect this is more likely motor phenomenon related to her anoxic brain injury. We can empirically add medicine for seizure control, plan EEG when available and then further plans will depend on those reports and on her clinical course. I discussed very frankly with son my impression that she has had significant brain injury. Thanks for asking me to see Terri. [facility]
[2016-05-14] MEDS: DUONEB (A & A) INH SCH ×6 (03:49→23:23)
[2016-05-14] MEDS: DIPRIVAN 1% 100 ML IV SCH ×5 (04:15→22:44)
[2016-05-14] MEDS: CEREBYX IV SCH ×3 (04:16→20:09)
[2016-05-14 04:31] LABS: ALLEN TEST YES; BE -4.9 mmoll (-3.0-3.0); BLOOD TYPE ARTERIAL; DRAW SITE R RADIAL; METHB 1.7 % (0.0-1.5); O2(CT) 13.5 mL/dL (15.0-23.0); PCO2(98.6) 34 mmHg (35-45); PO2(98.6) 81 mmHg (60-100); SAMPLE BLOOD; SAO2 96.6 % (95.0-100.0); SRATE 18 BPM; THB 10.2 g/dL (11.5-17.4); TVOL 400 mL; pH(98.6) 7.37 (7.35-7.45)
[2016-05-14 04:33] LABS: MODALITY VENTILATOR
[2016-05-14] MEDS: MAXIPIME 1 GM/NS 50 ML IV SCH ×2 (05:17→17:11)
--- NOTE | 2016-05-14 05:31 | EKG Report ---
Test Performed on : 05/13/2016 08:57:02 AM Test Reason : cardiac arrest/pulmonary edema Blood Pressure : / mmHG Vent. Rate : 063 BPM Atrial Rate : 063 BPM P-R Int : 198 ms QRS Dur : 090 ms QT Int : 528 ms P-R-T Axes : 067 -16 011 degrees QTc Int : 540 ms Normal sinus rhythm. Possible Left atrial enlargement Left ventricular hypertrophy Cannot rule out Septal infarct , age undetermined Prolonged QT Abnormal ECG When compared with ECG of 13-MAY-2016 08:56, (Unconfirmed) No significant change was found Confirmed by Cem Birmingham MD ([id number]) on 05/14/2016 9:20:52 PM
[2016-05-14 07:05] LABS: CALCIUM 8.9 mg/dL (8.8-10.2); POTASSIUM 4.5 mmol/L (3.5-5.1)
--- NOTE | 2016-05-14 07:31 | Diag Imaging Result Document ---
PROCEDURE NAME: CHEST-PORTABLE - 05/14/2016 SINGLE FRONTAL RADIOGRAPH OF THE CHEST: COMPARISON: 05/13/2016. FINDINGS: Tracheostomy tube is in stable position. NG tube projects below the diaphragm and out of the field of view. Mild bilateral increased interstitial markings are essentially unchanged. No new consolidations are identified. Cardiac silhouette is stable. IMPRESSION: Stable chest.
[2016-05-14] MEDS: LEVOPHED 8 MG in D5 1/2 NS 250 ML IV SCH (07:43)
[2016-05-14] MEDS: LOVENOX SUBQ SCH (09:39)
[2016-05-14 10:14] LABS: CK INDEX 1.7 (0.0-2.5); CK-MB 5.67 ng/mL (0.0-5.0)
--- NOTE | 2016-05-14 11:52 | PROGRESS NOTE ---
DATE: 05/14/2016 CHIEF COMPLAINT: Post cardiac arrest management. SUBJECTIVE: Ms. Murray remains unresponsive, intubated. At this time, they are doing an electroencephalogram. OBJECTIVE: Her vital signs, last recorded, temperature 94.8, pulse 83, blood pressure 128/67. She is mechanically ventilated. Her general physical exam is unchanged. Her laboratory work indicates a pH of 7.37 on 25% FIO2. Her PO2 is 81, CO2 is 34. Sodium is 135, potassium 4.5, BUN 37, creatinine 5.1. Her magnesium is 1.9. Her troponin levels have been checked 4 times; all of them are within negative range. Echocardiogram was done yesterday and shows moderately enlarged left ventricle with preserved function. No wall motion abnormality is noted to respect to the ischemic event. Her EKG at 8:57 in the morning on 05/13 shows sinus rhythm with no acute ischemic changes. There was some QT prolongation. IMPRESSION: 1. The patient has suffered an [id number] cardiorespiratory arrest. At this point in time, we do not have any objective evidence of myocardial infarction injury, neither by electrocardiogram, echocardiogram, or laboratory criteria. 2. The patient has postanoxic encephalopathy. 3. End-stage renal disease on hemodialysis. RECOMMENDATIONS: At this point in time, I have very little to offer. The patient's neurological status will basically determine her prognosis. We will see what happens over the next couple of days; however, if there is evidence of substantial brain injury, then there is really no further intervention that we could possibly offer. We will stand by at this time and please call us if we can be of any further assistance.
--- NOTE | 2016-05-14 14:44 | PROGRESS NOTE ---
DATE: 05/14/2016 SUBJECTIVE: Ms. Murray is resting quietly in bed. She remains ventilator dependent. She is sedated on propofol. OBJECTIVE: Her most recent vital signs, temperature 99.5 degrees, blood pressure 68/48, heart rate is 82 and respirations 18. She remains on 35% FiO2. Her last recorded saturation is 100%. She has had 1679 in. She has had 3858 out with 3658 per dialysis yesterday. LABS: This a.m., sodium 135, potassium 4.5, chloride 95, CO2 19, BUN 37, creatinine 5.1, glucose 92. Her anion gap is 21, calcium is. 8.9, magnesium 1.9. Blood cultures are currently pending. Sputum culture is currently pending. Previous hemoglobin on the is 10.1. PHYSICAL EXAMINATION: General: This is a 66-year-old female. She is currently resting in bed. She remains ventilator dependent and sedated. Skin: Warm and dry. HEENT: Normocephalic, atraumatic. Conjunctivae pale. Pupils are nonreactive. She continues without a blink reflex. Corneal reflexes noted. Cardiovascular: Regular rate and rhythm on the monitor. She is without murmur or gallop. Lungs: Clear to auscultation anterior. She remains ventilator dependent. Abdomen: Round, soft, nontender. Positive bowel sounds. Genitourinary: Not inspected with dialysis assist. Extremities: Have fistula to the right upper arm. This is palpable bruit. Trace pretibial edema. No clubbing or cyanosis. Integumentary : No rashes or lesions evident. Neurological: As mentioned above. ASSESSMENT AND PLAN: 1. End-stage renal disease. Patient is due for her routine dialysis treatment in the a.m. She tolerated dialysis on SLED well yesterday though she had to be restarted towards afternoon with a regular treatment. 2. Electrolytes and acid-base balance. These are stable. 3. Anemia. This remains stable. 4. Status post cardiac arrest. The patient remains intubated for ventilatory support. 5. Shock. Patient remains on Levophed. Blood pressure is stable/ I would to thank you for allowing us to follow with this patient. Data reviewed, discussed with Julianne Kearney on 05/14/16. I agree with the above assessment and plan of care. I discussed her injury and likely anoxic encephelopathy with son, daughter. rg Dictated by DPIESH Aguilar for Grey Posadas MD [facility]
[2016-05-14] MEDS: SODIUM CHLORIDE 0.9% INJ SCH (14:45)
[2016-05-14] MEDS: PROTONIX IV SCH (14:45)
--- NOTE | 2016-05-14 14:56 | PROGRESS NOTE ---
DATE: 05/14/2016 SUBJECTIVE: Ms. Murray continues unresponsive. At the time of my exam, she continues heavily sedated. Earlier, with sedation stopped, she reportedly developed the generalized limb jerking. Her electroencephalogram, off of propofol, showed generalized slowing with some central beta. There may have been very slight, very early burst suppression pattern, but that was not sustained. There was no epileptiform discharge or other evidence of seizure. I discussed likely diagnosis of anoxic brain injury with daughter. I do not have any new suggestion from neurologic standpoint. We might repeat her electroencephalogram later. Time will tell. Thanks for allowing me to follow Ms. Mruray.
--- NOTE | 2016-05-14 16:05 | PROGRESS NOTE ---
DATE: 05/14/2016 SUBJECTIVE: Today Ms. Murray remains stable. There have not been any major changes overnight per the Nursing Staff. OBJECTIVE: Vital signs: Blood pressure is 132/82, pulse of 83, respirations 17, patient is saturating 97% on mechanical ventilator. General: Ms. Murray is a 66-year-old, female. She is in bed, synchronizing well with the ventilator. HEENT: Mucosa is pink and moist. Anicteric. Acyanotic. Neck: Supple. Chest: Air entry is bilaterally reduced. There are transmitted sounds from the ventilator. There is about a 3/6 murmur radiating to the carotids. Abdomen: Soft. Extremities: No pedal edema. Central Nervous System: Patient is comatose. He does not respond to voice, only moves barely the head to very painful stimulation. Patient does not have anymore jerking movements that she had yesterday. LABORATORY DATA: No CBC. Sodium is 135, potassium is 4.5, chloride is 95, bicarb is 19, BUN is 37, creatinine is 5.1. ASSESSMENT: 1. Status post cardiac arrest. 2. Unresponsiveness/comatose likely due to severe anoxic brain injury. 3. Rhythmic jerking movements which I think is probably due to anoxic brain injury. EEG was done today by Neurology. My understanding is that there were no active signs of seizures. 4. Hypotensive/shock. We are not quite sure if this is all due to the patient's underlying acute medical problems versus sepsis. We will blood culture the patient and she is currently on antibiotics. Blood pressure is actually doing a whole lot better and the Levophed has been discontinued. 5. History of previous cerebrovascular accident/cognitive impairment/hypertension. 6. Endstage renal disease. The patient get hemodialysis via the right arm fistula.
--- NOTE | 2016-05-14 16:56 | EEG REPORT ---
DATE: 05/13/2016 COMMENT: This is a digitally recorded EEG done portably in the ICU on a 66-year -old patient with continued coma following cardiopulmonary arrest. When propofol is stopped, there has been limb jerking raising question of seizure. FINDINGS: This is a monotonous record composed of generalized slowing, mostly theta with some slowing into the delta range frontally across the hemispheres bilaterally. There is no posterior dominant rhythm. There is occasional beta rhythm centrally. No variation to correlate with spontaneous drowsing or sleep was recorded. There was no epileptiform discharge or electrographic seizure. This EEG was started as propofol was stopped and majority of this record is with propofol stopped. INTERPRETATION: Abnormal EEG because of generalized slowing. CORRELATION: This is indicative of a diffuse encephalopathy and is nonspecific. This is consistent with anoxic brain injury. Prognosis is uncertain based on the EEG findings. [facility]
[2016-05-14] MEDS: KEPPRA 750 MG in NS 100 ML IV SCH (17:45)
[2016-05-15] MEDS: DUONEB (A & A) INH SCH ×6 (03:17→22:53)
[2016-05-15] MEDS: MAXIPIME 1 GM/NS 50 ML IV SCH ×2 (04:22→18:00)
[2016-05-15] MEDS: DIPRIVAN 1% 100 ML IV SCH ×4 (04:23→22:39)
[2016-05-15 05:19] LABS: ALLEN TEST YES; BLOOD TYPE ARTERIAL; DRAW SITE R RADIAL; METHB 0.3 % (0.0-1.5); O2(CT) 11.9 mL/dL (15.0-23.0); PCO2(98.6) 38 mmHg (35-45); PO2(98.6) 82 mmHg (60-100); SAMPLE BLOOD; SAO2 94.3 % (95.0-100.0); SRATE 18 BPM; THB 8.9 g/dL (11.5-17.4); TVOL 400 mL; pH(98.6) 7.32 (7.35-7.45)
[2016-05-15 05:21] LABS: MODALITY VENTILATOR
[2016-05-15] MEDS: CEREBYX IV SCH ×3 (05:57→20:51)
[2016-05-15 06:20] LABS: HEMATOCRIT 27.2 % (37.0-47.0); HEMOGLOBIN 9.2 g/dL (12.0-16.0); MCH 33.7 PG (27-31); MCHC 33.8 g/dL (33-37); MCV 99.6 FL (81-99); MPV 11.5 FL (7.4-10.4); RBC 2.73 XMIL (4.2-5.4)
[2016-05-15 06:22] LABS: CALCIUM 8.5 mg/dL (8.8-10.2); POTASSIUM 4.6 mmol/L (3.5-5.1)
[2016-05-15] MEDS ORDERED: NS 2,000 ML ONE (08:54)
[2016-05-15] MEDS ORDERED: HEPARIN ONE (08:55)
[2016-05-15] MEDS: LOVENOX SUBQ SCH (09:11)
--- NOTE | 2016-05-15 10:18 | Diag Imaging Result Document ---
PROCEDURE NAME: CHEST-PORTABLE - 05/15/2016 PORTABLE CHEST: FINDINGS: The endotracheal tube remains at the thoracic inlet and there is an NG tube which passes below the diaphragm. The lungs appear to be clear. They are better expanded than they were on 05/14/2016. The heart size is within normal limits. IMPRESSION: No evidence of acute disease.
--- NOTE | 2016-05-15 11:12 | PROGRESS NOTE ---
DATE: 05/15/2016 SUBJECTIVE: Unresponsive. OBJECTIVE: Vital Signs: Blood pressure 99/54, heart rate 55, respiration 18, temperature 95.3 degrees. Intake 500 mL. Output 300 mL. General Appearance: In no acute distress. Skin: Warm and dry. Neck: Neck veins are not appreciated. Heart: Regular. Lungs: Have equal breath sounds. Few rhonchi. Abdomen: Soft, nontender. Bowel sounds present. Extremities: Have 2+ edema, worse in the right upper extremity. LABORATORY DATA: Sodium 135, potassium 4.6, chloride 97, bicarbonate 18, BUN 59, creatinine 7.1. Hemoglobin 9.2. IMPRESSION: End-stage kidney disease. SLED today for uremia management. From my perspective, there is little further to add. I had a discussion last evening with the family about her anoxic encephalopathy. If no improvement in the next 24 hours, then I think we need to start addressing withdrawal of care.
--- NOTE | 2016-05-15 11:35 | PROGRESS NOTE ---
DATE: 05/15/2016 Ms. Murray continues intubated, mechanically ventilated, heavily sedated. By report, during brief sedation vacation earlier, she had less of the jerking and twitching movements than in previous days. I did not observe her today off of propofol. I reviewed clinical impression of ischemic/anoxic brain injury with family. No new suggestion from neurologic standpoint. Thanks for allowing me to follow Ms. Murray.
--- NOTE | 2016-05-15 14:18 | PROGRESS NOTE ---
DATE: 05/15/2016 SUBJECTIVE: Today Ms. Murray continues to be intubated, relatively stable but very critical. There have not been any remarkable changes. OBJECTIVE: Vital signs: Blood pressure is 123/62, pulse of 68, respiration is 24, temperature is 97.3 degrees. General: Ms. Murray is a 66-year-old female. She is in bed, not seemingly distressed. Continues to be synchronizing very well with the ventilator. HEENT: Mucosa is pink and moist. Anicteric. Acyanotic. Neck: Supple. Chest: Good air entry bilateral. A few bibasilar crepitations. Cardiovascular: Regular rate and rhythm. There is a 2- 3/6 murmur radiating to the carotids. Abdomen: Soft. Extremities: No pedal edema. LIPCOAT SPRAYER: Patient continues to be unresponsive to verbal, only moves the lower extremities to very painful stimulation. The patient seems to have normal corneal reflex, normal gag. Pupils are somehow pinpoint but they seem to be sluggishly reactive. LABORATORY DATA: WBC is 4.96, hemoglobin is 9.2, platelet count is 77,000. Chemistry is reviewed, consistent with end stage renal disease. Blood cultures so far are 48 hours negative. IMAGING: A chest x-ray done this morning shows no evidence of acute disease. CURRENT MEDICATIONS: Include: 1. Albuterol nebs. 2. Cefepime 1 g q.12. 3. Lovenox 40 subcutaneously 24. 4. Fosphenytoin 75 q.8. 5. Levothyroxine 750 IV q.24. 6. Propofol. 7. Vancomycin. ASSESSMENT: 1. Status post cardiac arrest. 2. Unresponsiveness/comatose likely due to anoxic brain injury. Patient seems to maintain adequate brainstem activity. 3. Rhythmic jerky movement. This has resolved. We think this is probably due to myoclonic jerks from severe anoxic brain injury. 4. Hypotension/shock. Unsure if this was just due to the cardiac arrest or sepsis. Patient is currently on IV antibiotics. We will observe. We will be awaiting the final cultures, if it is negative, we will stop the current antibiotics. 5. History of previous cerebrovascular disease. 6. End stage renal disease. Patient is getting hemodialysis as we are talking. She has a fistula in the right arm. PLAN: General Plan: Patient seems to be stable but very critical. Has not shown any remarkable cortical function improvement but seems to maintain very adequate brainstem activity. I did speak with the pulmonary medicine dairy consultant on the case and the plan is if the family wishes to continue aggressive measures then I think we will be looking very shortly at a trach and a possible PEG, since patient has not shown any remarkable cortical function for awareness, we are not sure if she will be able to maintain adequate airway. At this point, I think the family members are still not on the same page of how critical the patient is. We would have daily conversation with them and update them how critical the patient is and guide them in their decision making.Will consult Palliative Medicine to discuss the patient's goals of care. MTDD
[2016-05-15] MEDS: PROTONIX IV SCH (14:53)
[2016-05-15] MEDS: SODIUM CHLORIDE 0.9% INJ SCH (14:53)
[2016-05-15] MEDS: KEPPRA 750 MG in NS 100 ML IV SCH (17:13)
[2016-05-15] MEDS: VANCOMYCIN 1 GM/NS 250 ML IV SCH (18:00)
[2016-05-16] MEDS: DUONEB (A & A) INH SCH ×6 (02:40→23:05)
[2016-05-16] MEDS: DIPRIVAN 1% 100 ML IV SCH (03:01)
[2016-05-16] MEDS: MAXIPIME 1 GM/NS 50 ML IV SCH ×2 (04:31→16:16)
[2016-05-16] MEDS: CEREBYX IV SCH ×3 (04:31→19:17)
[2016-05-16 04:38] LABS: BLOOD TYPE ARTERIAL; SAMPLE BLOOD
[2016-05-16 04:45] LABS: ALLEN TEST YES; DRAW SITE R RADIAL; METHB 2.1 % (0.0-1.5); O2(CT) 13.6 mL/dL (15.0-23.0); PCO2(98.6) 32 mmHg (35-45); PO2(98.6) 77 mmHg (60-100); SAO2 96.6 % (95.0-100.0); SRATE 12 BPM; THB 10.3 g/dL (11.5-17.4); TVOL 400 mL; pH(98.6) 7.37 (7.35-7.45)
[2016-05-16 04:46] LABS: MODALITY VENTILATOR
[2016-05-16] MEDS: LOVENOX SUBQ SCH (09:07)
--- NOTE | 2016-05-16 11:19 | PROGRESS NOTE ---
DATE: 05/16/2016 SUBJECTIVE/OBJECTIVE: Ms. Murray has not made significant change clinically. She continues intubated and heavily sedated on my exam. She had sedation vacation earlier today and was reported to have some twitching movement in the limbs less prominent than before with some decerebrate movement possibly in the left arm. Now, with propofol on board, she has pinpoint pupils , no definite lateral eye movement with head turning, absent corneal reflexes, no limb movement. IMPRESSION: Likely anoxic/ischemic brain injury several days ago, no clinical evidence of recovery of brain function, question of seizure earlier but now with low-dose phenytoin and levetiracetam on board and EEG negative for seizure a few days ago. After a eliceo discussion with her 2 daughters and son, my suggestion is to consider withdrawal of support when practical. For reassurance, we will get repeat noncontrast CT of the head and consider repeat EEG. These studies were requested by family. Further plans will depend on that report. [facility]
--- NOTE | 2016-05-16 11:55 | PROGRESS NOTE ---
DATE: 05/16/2016 SUBJECTIVE: No family is present. She is unresponsive on the ventilator. OBJECTIVE: Vital Signs: Blood pressure 97/54, heart rate 67, respirations 14, afebrile. General: No distress. Skin: Warm and dry. Eyes: Conjunctivae are pink. Neck: Neck veins are not distended. Heart: Regular. No murmurs or gallops. Lungs: Have equal breath sounds. No crackles. Extremities: Have 1+ upper extremity edema, right greater than left. LABORATORY DATA: None today. IMPRESSION: 1. Anoxic injury. I support Dr. Harris's assessment and I would support the decision to withdraw care. 2. Her next scheduled dialysis treatment is tomorrow.
--- NOTE | 2016-05-16 12:43 | PALLIATIVE CARE CONSULTATION ---
DATE: 05/16/2016 REQUESTING PHYSICIAN: Dr. Dennison. REASON FOR CONSULTATION: Goals of care. HISTORY OF PRESENT ILLNESS: This is a 66-year-old, female with a past medical history of CVA, end-stage renal disease, requiring hemodialysis, congestive heart failure, dyslipidemia, depression, anemia, vascular dementia and coronary artery disease. She was most recently admitted on 05/12/2016 after she became unresponsive just prior to an appointment with her primary care provider. It is reported that the son walked in to Dr. Valverde's office to sign Ms. Murray in and to obtain a wheelchair however when he made it back to the car he found that she was unresponsive. CPR was started and EMS was called. She was transported to the emergency department. She was intubated. A pulse was regained. She was then admitted to the ICU for further evaluation and treatment. Currently, she remains in the ICU. She is mechanically ventilated and sedated. During her sedation vacation earlier today there was some twitching movement to her limbs noted. She has pinpoint pupils and absent corneal reflexes. Her family is at the bedside. The Palliative Care team has been consulted to assist with goals of care. REVIEW OF SYSTEMS: Unable to review. PAST MEDICAL HISTORY: See HPI. PAST SURGICAL HISTORY: 1. Back surgery. 2. Right mastectomy. FAMILY HISTORY: None pertinent. SOCIAL HISTORY: Prior to this admission she lived at home alone. She is . She has 5 children, three who live local. Alcohol, tobacco and drug use have been denied. PHYSICAL EXAM: General: This is a 66-year-old, female, who is currently in the ICU requiring mechanical ventilation. She is sedated. She does not appear to be in any acute distress. HEENT: Atraumatic, normocephalic. Neck: Trachea is midline. Cardiovascular: Normal S1, S2. Pulmonary: Lung sounds are diminished. Abdomen: Soft. Extremities: Pulses are palpable. Skin: Warm and dry. IMPRESSION: This is a 66-year-old, female with a past medical history as listed above in the HPI. I met with the patient's 2 daughters and 1 son to discuss her goals of care. Dr. Harris was also involved with discussing goals of care with the family. The family has been informed of Ms. Murray's poor prognosis and very small chance of recovery. We did discuss withdrawal of care and keeping Ms. Murray comfortable. We also discussed placement of a trach and PEG. The family has requested a CT scan of the head and possible repeat EEG. Dr. Harris will place those orders and we will follow up with the family. The Palliative Care team will visit daily and is available as needed. Thank you for this consultation. Dictated by DIPESH Sarah for Matt Abbasi MD
--- NOTE | 2016-05-16 13:26 | Diag Imaging Result Document ---
PROCEDURE NAME: HEAD W/O CONTRAST - 05/16/2016 CT OF THE HEAD WITHOUT CONTRAST: FINDINGS: There are air-fluid levels in both sphenoid sinuses and some mucosal thickening and fluid are present in the ethmoid air cells. There is no evidence of intracranial mass effect, bleed, or abnormal extraaxial fluid collection. There is atrophy, particularly in the frontal lobes. Compared to 05/12/2016, the appearance of the brain has not changed significantly. The fluid collections in the sinuses were not present previously. IMPRESSION: 1. Sphenoid and ethmoid sinusitis. 2. No evidence of acute intracranial disease.
--- NOTE | 2016-05-16 16:11 | EEG REPORT ---
DATE: 05/16/2016 PROCEDURE: Electroencephalogram. VISIT: #[id number]. DATE OF VISIT: 05/16/2016. COMMENT: This is a digitally recorded EEG done portably in the ICU on a 66-year-old patient with continued unresponsiveness. FINDINGS: The first portion of the EEG is recorded with propofol on board and shows some beta rhythm centrally with generalized low-amplitude slowing. Propofol was stopped, and within several minutes there developed a more typical burst suppression pattern. There is generalized slowing into the delta range bilaterally, highest amplitude frontally. No variation to correlate with spontaneous drowsing or sleep was noted. There was no epileptiform discharge. INTERPRETATION: Abnormal electroencephalogram because of generalized slowing and burst suppression. CORRELATION: Burst suppression is a typical post anoxic brain injury finding. This is more developed on today's EEG compared to the record of several days ago. There is no evidence of seizure.
[2016-05-16] MEDS: KEPPRA 750 MG in NS 100 ML IV SCH (16:15)
[2016-05-16] MEDS: SODIUM CHLORIDE 0.9% INJ SCH (16:16)
[2016-05-16] MEDS: PROTONIX IV SCH (16:16)
--- NOTE | 2016-05-16 17:43 | PROGRESS NOTE ---
DATE: 05/16/2016 SUBJECTIVE: Today there was no family member in the room of Ms Murray when I saw her. Per the nursing staff, there was a meeting earlier on with palliative medicine and the [address] Harris as well. OBJECTIVE: Vital Signs: Stable. Blood pressure is 135/71, pulse of 74, respirations 22, temperature is 98.1 degrees. General: Ms. Murray 66-year-old female she is in bed. Continues to be intubated, no distress. HEENT: Mucosa is pink and moist. Anicteric. Acyanotic. Neck: Supple. Chest: Air entry is bilaterally reduced. There are few bibasilar crepitations and transmitted sounds from the ventilator. Cardiovascular: There is a 3/6 murmur. Abdomen: Soft. RADIO ANNOUNCER: Patient is only responsive to very painful stimuli. There is a gag reflex. ASSESSMENT: 1. Status post cardiac arrest. 2. Persistent unresponsiveness/comatose likely due to anoxic brain injury. 3. Rhythmic jerking movement likely from myoclonic jerk is resolved. 4. Hypotension/shock. Unsure if this was due to cardiogenic shock versus sepsis. Patient continues to be on antibiotics. 5. Previous cerebrovascular accident. 6. Endstage renal disease. The patient continues to have dialysis. GENERAL PLAN: Patient remains stable but extremely critical and I do not think patient will have any meaningful neurological improvement. I think there have been discussions with the family members about the way going forward. We are still waiting on their final recommendations. Neurology is on board and will follow up with them.
[2016-05-16] MEDS ORDERED: BLISTEX MEDICATED BERRY LIP BALM TOP PRN (20:05)
[2016-05-17] MEDS: DUONEB (A & A) INH SCH ×6 (03:11→23:41)
[2016-05-17] MEDS: CEREBYX IV SCH ×3 (03:42→19:28)
[2016-05-17 04:36] LABS: MANUAL DIFF NEEDED? NO
[2016-05-17 04:40] LABS: ALLEN TEST YES; BE -8.9 mmoll (-3.0-3.0); BLOOD TYPE ARTERIAL; DRAW SITE R RADIAL; METHB 0.9 % (0.0-1.5); MODALITY VENTILATOR; PCO2(98.6) 29 mmHg (35-45); PO2(98.6) 103 mmHg (60-100); SAMPLE BLOOD; SAO2 100.3 % (95.0-100.0); SRATE 12 BPM; THB 12.4 g/dL (11.5-17.4); TVOL 400 mL; pH(98.6) 7.34 (7.35-7.45)
[2016-05-17] MEDS: MAXIPIME 1 GM/NS 50 ML IV SCH ×2 (04:58→16:14)
[2016-05-17 05:01] LABS: BASO% 0.4 % (0.0-0.8); EOS# 0.11 X1000 (0.0-0.7); EOS% 1.9 % (0.0-10.0); HEMATOCRIT 29.2 % (37.0-47.0); HEMOGLOBIN 9.4 g/dL (12.0-16.0); IMM GRAN# 0.05 X1000 (0.0-0.04); IMM GRAN% 0.9 % (0.0-0.5); LYMPH# 0.79 X1000 (1.2-3.4); MCH 32.3 PG (27-31); MCHC 32.2 g/dL (33-37); MCV 100.3 FL (81-99); MONO# 0.49 X1000 (0.11-0.59); MONO% 8.7 % (1.7-9.3); MPV 11.1 FL (7.4-10.4); NEUT% 74.1 % (42.2-75.2); PLT 118 X1000 (130-400); RBC 2.91 XMIL (4.2-5.4)
[2016-05-17 05:51] LABS: ALBUMIN 2.9 g/dL (3.5-5.0); CALCIUM 9.2 mg/dL (8.8-10.2); MAGNESIUM 2.2 mg/dL (1.5-2.7); TOTAL BILIRUBIN 0.27 mg/dL (0.20-1.00); TOTAL PROTEIN 6.3 g/dL (6.3-8.3)
[2016-05-17 06:12] LABS: POTASSIUM 5.4 mmol/L (3.5-5.1)
[2016-05-17] MEDS ORDERED: D50W SYRINGE IV ONE (06:29)
[2016-05-17] MEDS ORDERED: D50W SYRINGE ONE (06:30)
[2016-05-17] MEDS: LOVENOX SUBQ SCH (08:00)
[2016-05-17] MEDS ORDERED: HEPARIN ONE (08:40)
[2016-05-17] MEDS ORDERED: NS 2,000 ML ONE (08:40)
--- NOTE | 2016-05-17 08:52 | Diag Imaging Result Document ---
PROCEDURE NAME: CHEST-PORTABLE - 05/17/2016 AP PORTABLE CHEST AT 0500 HOURS: FINDINGS: There is an endotracheal tube with its tip below the thoracic inlet and an NG tube with its tip below the diaphragm. There is elevation of the left hemidiaphragm. Otherwise, there has been no significant change in the appearance of the chest since 05/15/2016. IMPRESSION: Stable chest.
[2016-05-17] MEDS: PROTONIX IV SCH (16:13)
[2016-05-17] MEDS: KEPPRA 750 MG in NS 100 ML IV SCH (16:14)
--- NOTE | 2016-05-17 17:14 | PROGRESS NOTE ---
DATE: 05/17/2016 SUBJECTIVE: Today Ms. Murray continues to be intubated and have not been any remarkable improvement. There is a daughter was in the room at the time of my encounter. OBJECTIVE: Vitals: Blood pressure 95/60, pulse of 85, respirations 16, temperature is 98.2 degrees. General: Ms. Murray 66-year-old female. She was in bed intubated and not on any sedation. HEENT: Mucosa is pink and moist. Anicteric. Acyanotic. Neck: Supple. Chest: Air entry bilaterally reduced, there is a few bibasilar crepitations and transmitted sounds from the ventilator. Abdomen: Soft. There is no hepatosplenomegaly. Bowel sounds are present. Cardiovascular: Regular rate and rhythm. There is a 3/6 murmur. AMMONIA SOLUTION PREPARER: Patient is minimally responsive to painful stimuli. Will attempt to open the eyes. There is adequate cornea reflex and there is adequate cough reflex. DATA: A chest x-ray this morning shows there is elevation of the left hemidiaphragm. Otherwise no significant changes. LABORATORY DATA: WBC is 5.65, hemoglobin is 9.4, platelet count of 118,000. Sodium is 138, potassium is 5.4, chloride 98, bicarb is 15, glucose is 40. ASSESSMENT: 1. Status post cardiac arrest. 2. Persistent unresponsiveness/comatose likely due to anoxic brain injury. The patient is not on any sedatives. However she is not very interactive. I think she will probably transition to a permanent vegetative state. 3. Rhythmic movement likely from myoclonic movement is resolved. 4. Hypotension/shock. Unsure if this was due to cardiogenic shock versus sepsis. Patient blood pressure is stable and will continue with antibiotics. 5. Previous cerebrovascular accident. 6. End-stage renal disease. Patient gets dialysis. 7. High anion gap metabolic acidosis. I think this is related to the degree of her kidney disease. 8. Hypoglycemia. This has been addressed. 9. Mild transaminitis unclear the etiology, could be ischemic versus drug induced. We will keep close eye on this. GENERAL PLAN: 1. Patient seems stable but critical. I did explain to the daughter that the patient is no more on sedation however mentation continues to be dismal. We would have to give her some time to see if there will be any signs of recovery. I think she will probably transition to a permanent vegetative state. The family members considering option of either having to go for a tracheostomy and PEG or thinking about withdrawing care. They plan to make a decision probably around Thursday or so and they will communicate it with us. 2. I also head from the nursing staff that the family members want to talk with the hospital administration and I am not quite sure why but any case the daughter who was in the room with me did not made mention of that so I will be waiting for the rest of the family to come and see if they would want to talk with me or they have any issues they would want to address.
[2016-05-17] MEDS: VANCOMYCIN 1 GM/NS 250 ML IV SCH (18:10)
[2016-05-18] MEDS: CEREBYX IV SCH ×3 (03:17→19:59)
[2016-05-18] MEDS: DUONEB (A & A) INH SCH ×6 (03:44→23:00)
[2016-05-18] MEDS: MAXIPIME 1 GM/NS 50 ML IV SCH (04:54)
[2016-05-18 05:05] LABS: ALLEN TEST YES; BE -0.7 mmoll (-3.0-3.0); BLOOD TYPE ARTERIAL; DRAW SITE R RADIAL; METHB 1.7 % (0.0-1.5); O2(CT) 12.7 mL/dL (15.0-23.0); PCO2(98.6) 30 mmHg (35-45); PO2(98.6) 109 mmHg (60-100); SAMPLE BLOOD; SAO2 98.4 % (95.0-100.0); SRATE 12 BPM; THB 9.3 g/dL (11.5-17.4); TVOL 400 mL; pH(98.6) 7.48 (7.35-7.45)
[2016-05-18 05:06] LABS: MODALITY VENTILATOR
[2016-05-18] MEDS: LOVENOX SUBQ SCH (08:10)
[2016-05-18] MEDS: PROTONIX IV SCH (14:11)
[2016-05-18] MEDS: SODIUM CHLORIDE 0.9% INJ SCH (14:11)
[2016-05-18] MEDS: D10W 1,000 ML IV SCH (15:53)
--- NOTE | 2016-05-18 17:10 | PROGRESS NOTE ---
DATE: 05/18/2016 SUBJECTIVE: Today Ms. Murray continues to be stable but critical. The daughter and the son were in the room when I went in for the encounter. OBJECTIVE: Vital signs: Blood pressure is 154/68, pulse of 78, respiration is 16, temperature is 96.8 degrees. General: Ms. Murray 66-year-old female. She was in bed. Continues to be intubated. HEENT: Mucosa is pink and moist. Anicteric. Acyanotic. Neck: Supple. Chest: Air entry is bilaterally reduced. A few wet crackles in the lung field. There is also some transmitted sound from the ventilator. Cardiovascular: Regular rate and rhythm. There is a 3/6 murmur. LEARNING AND DEVELOPMENT ASSOCIATE: Patient cannot try opening the eyes to painful stimulation and will withdraw the lower extremities from painful stimulation. Has normal corneal and gag reflex. Pupils are slightly pinpoint but they are reactive. LABORATORY DATA: WBC. We do not have any CBC for today and no chemistry. Glucose is 68. ASSESSMENT: 1. Status post cardiac arrest. 2. Persistent unresponsiveness/comatose likely due to anoxic brain injury. The patient has been off sedatives for over 48 hours. She continues to be minimally interactive with her environment. I think she will probably transition into permanent vegetative state. 3. Myoclonic jerk versus seizures. This is resolved. 4. Hypotension/shock on presentation. Unsure if this was cardiogenic shock versus sepsis. Blood cultures so far have been negative. Sputum is unremarkable. Patient has been on antibiotics for 5 solid days and there have not been any signs anywhere for infection. We would therefore go ahead and discontinue the antibiotics. 5. Endstage renal disease. Patient continues getting hemodialysis. 6. High anion gap metabolic acidosis likely due to the kidney disease. 7. Persistent hypoglycemia. We will start the patient on D10 at 50 mL/h. 8. Transaminitis of unclear etiology. Will repeat and follow up with that. So today I had the pleasure to speak with the daughter and the son on Ms Murray. Both of them were with opinion that they want to talk with patient advocates to know what will be their options. They were requesting if possible to do a CT scan and an EEG however I did tell them both tests might probably not tell us a lot and that daily physical exams will tell us more about how her neurological improvement is going to be. I did mention to them that at this point I think that Ms. Murray will probably be vegetable for some time and that if they would proceed with the tracheostomy and percutaneous endoscopic gastrostomy then that can be an option to look at during the week coming. They said they would meet with the patient advocate and then they will let us know what will be the care going forward. MTDD
[2016-05-18] MEDS: KEPPRA 750 MG in NS 100 ML IV SCH (17:21)
[2016-05-19] MEDS: CEREBYX IV SCH ×3 (03:10→20:02)
[2016-05-19] MEDS: DUONEB (A & A) INH SCH ×6 (03:19→23:57)
[2016-05-19 04:19] LABS: MANUAL DIFF NEEDED? NO
[2016-05-19 04:27] LABS: ALLEN TEST YES; BE 1.3 mmoll (-3.0-3.0); BLOOD TYPE ARTERIAL; DRAW SITE R RADIAL; METHB 1.7 % (0.0-1.5); O2(CT) 13.3 mL/dL (15.0-23.0); PCO2(98.6) 33 mmHg (35-45); PO2(98.6) 97 mmHg (60-100); SAMPLE BLOOD; SAO2 99.2 % (95.0-100.0); SRATE 12 BPM; THB 9.8 g/dL (11.5-17.4); TVOL 400 mL; pH(98.6) 7.48 (7.35-7.45)
[2016-05-19 04:29] LABS: MODALITY VENTILATOR
[2016-05-19 05:03] LABS: ALBUMIN 2.9 g/dL (3.5-5.0); CALCIUM 9.8 mg/dL (8.8-10.2); POTASSIUM 5.2 mmol/L (3.5-5.1); TOTAL BILIRUBIN 0.34 mg/dL (0.20-1.00); TOTAL PROTEIN 6.2 g/dL (6.3-8.3)
[2016-05-19 07:45] LABS: BASO% 0.1 % (0.0-0.8); EOS# 0.23 X1000 (0.0-0.7); EOS% 3.2 % (0.0-10.0); HEMATOCRIT 27.9 % (37.0-47.0); HEMOGLOBIN 9.1 g/dL (12.0-16.0); IMM GRAN# 0.06 X1000 (0.0-0.04); IMM GRAN% 0.8 % (0.0-0.5); LYMPH# 0.75 X1000 (1.2-3.4); LYMPH% 10.6 % (20.5-51.1); MCH 32.7 PG (27-31); MCHC 32.6 g/dL (33-37); MCV 100.4 FL (81-99); MONO# 0.71 X1000 (0.11-0.59); MPV 12.2 FL (7.4-10.4); NEUT% 75.3 % (42.2-75.2); PLT 129 X1000 (130-400); RBC 2.78 XMIL (4.2-5.4)
[2016-05-19] MEDS: SODIUM CHLORIDE 0.9% INJ SCH (08:44)
[2016-05-19] MEDS: PROTONIX IV SCH (08:44)
[2016-05-19] MEDS: LOVENOX SUBQ SCH (08:44)
--- NOTE | 2016-05-19 08:52 | Diag Imaging Result Document ---
PROCEDURE NAME: CHEST-PORTABLE - 05/19/2016 PORTABLE CHEST X-RAY, 05/19/2016: COMPARISON: 05/17/2016. FINDINGS: Stable support lines and tubes. The lungs are clear. Heart size is grossly normal. No pneumothorax or significant effusion. IMPRESSION: No acute disease or complication.
--- NOTE | 2016-05-19 09:22 | PROGRESS NOTE ---
DATE: 05/19/2016 Ms. Murray looks about the same clinically. She remains intubated, motionless, completely unresponsive. She has full lateral eye movement with passive head turning. Corneal reflexes are present bilaterally. There is no spontaneous limb movement. There was a little bit of withdrawal with noxious stimulation over the feet. Neck is supple. I did not see any limb jerking movement during my time at the bedside. Review of computer record shows no propofol administration in about 3 days now, based on my review. She does not have any other sedating medicines on board. She continues relatively low dose levetiracetam and fosphenytoin. Lab work shows persistent anemia, one blood sugar 40 over the weekend but mostly blood sugar is unremarkable, some other minor findings on chemistry profile but nothing that generally would be associated with encephalopathy. BUN has trended downward. I do not have any new thoughts or new suggestions from a neurologic standpoint. I think she has likely had significant anoxic brain injury about a week ago now and her failure to recover consciousness is disappointing. I do not have any suggestion for workup or other management now. Thanks for allowing me to follow Ms. Murray.
--- NOTE | 2016-05-19 11:08 | PROGRESS NOTE ---
DATE: 05/19/2016 SUBJECTIVE: Patient currently resting in bed. Her family is at the bedside. She has some limb withdrawal, posturing appearing movement to stimulation. Her eyes open. Does not make eye contact. Upper extremities with no purposeful or involuntary movement. Completely flaccid. OBJECTIVE: Vital Signs: Temperature 98.9 degrees, pulse 84, respiratory rate 17, blood pressure 123/69. Intake 940 mL. Output 200 mL per NG tube. General: Elderly female, resting in bed. Again, no purposeful movement. HEENT: Normocephalic and atraumatic. She is orally intubated. Conjunctivae pink. Neck: Supple. No JVD. Cardiovascular: Regular rate and rhythm. No murmur appreciated. Pulmonary: Equal excursion. She is mechanically ventilated. Abdomen: Soft. Hypoactive bowel sounds. : Not inspected. Extremities: There was 1+ upper extremity edema, right greater than left. Posturing appearing movement to the lower extremities with tactile stimuli. No purposeful movement. Bilateral upper extremities flaccid. Integumentary: Skin is warm and dry. No rash or lesion. Lab Data: WBC of 7, hemoglobin 9.1. Sodium 140, potassium 5.2, CO2 21, BUN 33 , creatinine 5, calcium 9.8. Albumin 2.9. ASSESSMENT AND PLAN: 1. End-stage renal disease. Her routine dialysis schedule is Thursday, , Thursday. She has no indications for additional dialysis today. We will plan to keep her to her regular schedule. Her next dialysis treatment will be in the morning if care is continued. 2. Anoxic brain injury. Family still undecided about care. It appears they believe that her posturing movement is purposeful. We understand there is to be a meeting with the patient advocate and the family today. We continue to support neurology's assessment to withdraw care. We will abide by the wishes of the family regarding her dialysis. 3. Electrolytes, acid-base balance, anemia. These are all acceptable. Seen, data reviewed, discussed with Rishi Encinas on 05/19/15. I agree with the above assessment and plan of care. rg Dictated by DIPESH Williamson for Grey Posadas MD [facility]
[2016-05-19] MEDS: D10W 1,000 ML IV SCH (11:31)
[2016-05-19] MEDS: KEPPRA 750 MG in NS 100 ML IV SCH (16:27)
[2016-05-19] MEDS: ATIVAN IV PRN ×2 (17:24→22:50)
--- NOTE | 2016-05-19 17:26 | PROGRESS NOTE ---
DATE: 05/19/2016 SUBJECTIVE: Today, Ms. Murray continues to be the same. There are no changes. OBJECTIVE: Vital signs: Blood pressure is 130/79, pulse 84, respirations 12, temperature 97.3 degrees. General: Ms. Murray is a 66-year-old female. She is in bed, continues to be intubated. No changes. Chest: Clear. A few crepitations and transmitted sounds from the ventilator. Cardiovascular: Regular rate and rhythm. There is a 3/6 murmur. WIRE INSULATOR: Patient is intubated, not on any sedation for the past 72 hours. She will minimally open the eyes to painful stimuli. She does not seem to have threat but she has cornea reflex and gag reflex. She will move her lower extremities to painful stimulation. LABORATORY DATA: WBC 7.09, hemoglobin is 9.1, platelet count is 129,000. Chemistry: Sodium is 140, potassium 5.2, chloride is 101, bicarb is 21, creatinine is 5.001. Blood cultures have been 5 days negative. Sputum culture is no growth. ASSESSMENT: 1. Status post cardiac arrest. 2. Persistent unresponsiveness/comatose likely due to severe anoxic brain injury after cardiac arrest. The patient has been off sedatives for 72 hours. However, she persistently remains unresponsive, and I think she will probably be permanent vegetative state. 3. Myoclonic jerk likely due to anoxic brain injury. This is resolved. 4. Hypotension on presentation, likely from cardiogenic shock versus sepsis. This is improved. Blood cultures have all been negative and blood pressure has improved. We will go ahead and discontinue antibiotics since we do not find any source of possible infection. 5. End stage renal disease. The patient is getting dialysis on Tuesdays, and Saturdays. 6. Persistent hypoglycemia. Patient is currently on D10 at 50 mL/hour and glucose seems to be stable. 7. Transaminitis, etiology is unclear, likely due to ischemic liver injury. The liver functions have been have normalized. In general, Ms. Murray I understand was in Dr. Valverde's office and had a cardiac arrest, was resuscitated, was intubated in the field and was brought into the hospital. She has been here for the past 7 days. Her mentation has actually not improved. She remains unresponsive. A computed tomography scan twice has been done. There is no changed. An electroencephalogram has also been done. Patient has been seen by multiple subspecialists, specifically today I had a meeting with the 3 kids, the 2 daughters and a son and a appeals representative from patient advocate , Ms. Mcnamara, and we went over all the patient care from the time she came in until now. The family requested to see the reports of all the things that have been done. The opened the EMR and let them read all the reports of the computed tomography scans, the chest x-rays, all her lab results. We showed it to them, and I did explain finally to them that there has not been any remarkable improvement in Ms. Murray's neurological state and that it is going to take a long time to know if she is going to have any improvement. I also did tell them that from how things seem, I do not foresee any appreciable improvement from her neurological standpoint and that she will probably be vegetative for the rest of her life, and they will have a choice to either request a tracheostomy and percutaneous endoscopic gastrostomy and then transition the patient to an LTAC or make her comfort care measures only. They all agreed to meet and then make a decision and let us know. MTDD
[2016-05-20] MEDS: DUONEB (A & A) INH SCH ×6 (03:33→22:32)
[2016-05-20] MEDS: CEREBYX IV SCH ×3 (04:07→20:08)
[2016-05-20 05:13] LABS: ALLEN TEST YES; BE 1.5 mmoll (-3.0-3.0); BLOOD TYPE ARTERIAL; DRAW SITE R RADIAL; METHB 1.4 % (0.0-1.5); PCO2(98.6) 33 mmHg (35-45); PO2(98.6) 115 mmHg (60-100); SAMPLE BLOOD; SAO2 99.8 % (95.0-100.0); SRATE 12 BPM; THB 11.7 g/dL (11.5-17.4); TVOL 400 mL; pH(98.6) 7.48 (7.35-7.45)
[2016-05-20 05:15] LABS: MODALITY VENTILATOR
[2016-05-20 06:10] LABS: MANUAL DIFF NEEDED? NO
[2016-05-20 06:36] LABS: CALCIUM 9.9 mg/dL (8.8-10.2); MAGNESIUM 1.9 mg/dL (1.5-2.7); POTASSIUM 5.5 mmol/L (3.5-5.1)
[2016-05-20] MEDS: D10W 1,000 ML IV SCH (06:48)
[2016-05-20 06:54] LABS: BASO% 0.2 % (0.0-0.8); EOS# 0.24 X1000 (0.0-0.7); EOS% 3.9 % (0.0-10.0); HEMATOCRIT 26.6 % (37.0-47.0); HEMOGLOBIN 8.5 g/dL (12.0-16.0); IMM GRAN# 0.05 X1000 (0.0-0.04); IMM GRAN% 0.8 % (0.0-0.5); LYMPH# 0.67 X1000 (1.2-3.4); LYMPH% 10.9 % (20.5-51.1); MCH 32.1 PG (27-31); MCV 100.4 FL (81-99); MONO# 0.66 X1000 (0.11-0.59); MONO% 10.8 % (1.7-9.3); NEUT% 73.4 % (42.2-75.2); PLT 121 X1000 (130-400); RBC 2.65 XMIL (4.2-5.4)
--- NOTE | 2016-05-20 07:45 | Diag Imaging Result Document ---
PROCEDURE NAME: CHEST-PORTABLE - 05/20/2016 PORTABLE CHEST X-RAY: COMPARISON: 05/19/2016. FINDINGS: Stable endotracheal tube and nasogastric tube in good position. The lungs are grossly clear and the heart size is normal. IMPRESSION: No acute disease or complication. No change from prior.
[2016-05-20] MEDS ORDERED: NS 2,000 ML ONE (07:54)
[2016-05-20] MEDS: SODIUM CHLORIDE 0.9% INJ SCH (08:38)
[2016-05-20] MEDS: PROTONIX IV SCH (08:38)
[2016-05-20] MEDS: LOVENOX SUBQ SCH (08:38)
--- NOTE | 2016-05-20 09:05 | PROGRESS NOTE ---
DATE: 05/20/2016 SUBJECTIVE: No change. She remains unresponsive to verbal stimuli or tactile stimuli. OBJECTIVE: Vital Signs: Blood pressure 124/67, heart rate 83, respirations 13, afebrile. Intake 1.3 L. Output 25 mL. General: On physical exam, elderly woman on the ventilator. Eyes are open. She does not blink to confrontation though she does blink to touching the eyelashes. Conjunctivae are pink. Neck: Neck veins are distended. Trachea is midline. Heart: Regular with a venous hum. Lungs: Have equal breath sounds. No crackles or wheezes. Abdomen: Soft, nontender. Bowel sounds are present. Extremities: Have 2+ edema especially in the right upper arm, but also edema is present in the hips and legs. LABORATORY DATA: Sodium 138, potassium 5.5, chloride 99, bicarbonate 22, BUN 41, creatinine 6.4, hemoglobin 8.5. IMPRESSION: 1. End-stage kidney disease: SLEDD today with a goal of 2 L ultrafiltration. 2. Anoxic encephalopathy. I had a conversation with the family as well yesterday. They remain hopeful based on their perceived responses to movement. I believe these are all reflex movements and she has severe and permanent anoxic injury. They desire to continue to treat at least at this point.
--- NOTE | 2016-05-20 11:29 | PROGRESS NOTE ---
DATE: 05/20/2016 PATIENT LOCATION: ICU bed 11. SUBJECTIVE: Ms. Murray looks about the same clinically. OBJECTIVE: She has eyes open, some random conjugate eye movement. No response to noxious stimulation. No communication. No apparent consciousness or recognition. Neck is supple. She has full lateral eye movements with passive head turning. Corneal reflexes are brisk bilaterally. IMPRESSION: My impression remains that she has irreversible ischemic brain injury and that she will not recover. I discussed that with family on Thursday. I have missed family on my rounds since then. No new suggestion from a neurologic standpoint. [facility]
--- NOTE | 2016-05-20 13:26 | PROGRESS NOTE ---
DATE: 05/20/2016 SUBJECTIVE: Today Ms. Murray continues to be stable but critical. No major changes overnight. There was no family members in the room today when I went in for the encounter. OBJECTIVE: Vital signs: Blood pressure is 141/72, pulse of 90, respiration is 19, temperature is 99.3 degrees. The patient was saturating 98% on mechanical ventilator. General: Ms. Murray is a 66-year-old female. She is in bed, under the ventilator. Not in any distress. Synchronizing very well. HEENT: Mucosa is pink and moist. Anicteric. Acyanotic. Neck: Supple. Chest: Air entry is bilaterally reduced. There are some transmitted sounds from the ventilator. Cardiovascular: Regular rate and rhythm. There is a 2 to 3/6 murmur. ORDNANCE KEEPER: Patient is intubated. Has her eyes open but does not seems to have threat response. She has corneal reflex and her gag reflex is somewhat diminished today. The patient will move her lower extremities on painful stimulation. LABORATORY DATA: WBC is 6.13, hemoglobin is 8.5, platelet count of 121,000. Chemistry reviewed, consistent with end-stage renal disease. Glucose is 98. MEDICATIONS: Have been reviewed. Patient is currently not on any antibiotics. Continue on the phosphentaside and levothyroxine, Ativan p.r.n., and dextrose 10%. ASSESSMENT: 1. Status post cardiac arrest. 2. Persistent unresponsiveness/comatose, likely due to severe anoxic brain injury after cardiac arrest. I think the patient is eventually going to be in a permanent vegetative state. 3. Hypotension on presentation, likely due to cardiogenic shock. 4. End-stage renal disease, on hemodialysis. 5. Persistent hypoglycemia. Improving with the D10. 6. Transaminitis, likely due to ischemic liver injury, improved. GENERAL PLAN: We are still awaiting the family members to make a decision as to if they will go with trach and PEG or if they will withdraw care. I had a very lengthy discussion with them yesterday. Please refer to the details in my progress note yesterday. Patient's blood cultures and sputum cultures have all been negative. We will therefore discontinue the antibiotics. Patient was on antibiotics for 7 days.
--- NOTE | 2016-05-20 15:07 | PALLIATIVE CARE PROGRESS NOTE ---
DATE: 05/20/2016 SUBJECTIVE: No change. OBJECTIVE: General: This is a 66-year-old, female, who remains mechanically ventilated. HEENT: Atraumatic, normocephalic. Her eyes are open but she does not blink. Neck: Trachea is midline. Cardiovascular: Regular rate and rhythm. Pulmonary: Lung sounds are diminished. Abdomen: Soft. ASSESSMENT AND PLAN: Ms. Murray's son was at the bedside during my visit. He states the family is still undecided of what their ultimate wishes are for Ms. Murray. He is unsure if his sisters will return to visit her today to have any further discussion regarding those wishes. He states that his oldest sister who appears to be the one relaying the message from the other siblings will visit in the morning. However he is unsure of the time. He plans to call his sister to ask what time she will be visiting tomorrow in hopes that we can coordinate our visits and have further discussion regarding goals of care. The palliative care team will continue to follow. Dictated by DIPESH Sarah for Matt Abbasi MD
[2016-05-20] MEDS: KEPPRA 750 MG in NS 100 ML IV SCH (17:07)
[2016-05-20] MEDS: ATIVAN IV PRN ×2 (18:37→22:56)
[2016-05-20] MEDS: MORPHINE IV PRN (18:57)
[2016-05-21] MEDS: DUONEB (A & A) INH SCH ×6 (02:48→22:53)
[2016-05-21] MEDS: ATIVAN IV PRN (03:28)
[2016-05-21] MEDS: D10W 1,000 ML IV SCH ×2 (03:28→20:29)
[2016-05-21] MEDS: CEREBYX IV SCH ×3 (03:29→20:26)
[2016-05-21 04:29] LABS: ALLEN TEST YES; BE 5.4 mmoll (-3.0-3.0); BLOOD TYPE ARTERIAL; DRAW SITE L BRACHIAL; METHB 1.6 % (0.0-1.5); O2(CT) 12.5 mL/dL (15.0-23.0); PCO2(98.6) 37 mmHg (35-45); PO2(98.6) 72 mmHg (60-100); SAMPLE BLOOD; SAO2 96.6 % (95.0-100.0); SRATE 12 BPM; THB 9.4 g/dL (11.5-17.4); TVOL 400 mL
[2016-05-21 04:40] LABS: MODALITY VENTILATOR
[2016-05-21 07:05] LABS: ALBUMIN 2.8 g/dL (3.5-5.0); CALCIUM 10.6 mg/dL (8.8-10.2); POTASSIUM 4.9 mmol/L (3.5-5.1); TOTAL BILIRUBIN 0.28 mg/dL (0.20-1.00); TOTAL PROTEIN 6.3 g/dL (6.3-8.3)
[2016-05-21] MEDS: PROTONIX IV SCH (09:02)
[2016-05-21] MEDS: LOVENOX SUBQ SCH (09:03)
[2016-05-21] MEDS: SODIUM CHLORIDE 0.9% INJ SCH (09:03)
--- NOTE | 2016-05-21 11:24 | PROGRESS NOTE ---
DATE: 05/21/2016 SUBJECTIVE: Today Ms. Murray remains pretty much the same. The family members have not made any decision yet, so the front end specialist evaluated the patient and made the decision to extubate the patient and see if she will be able to be on her own without the need for tracheostomy. So, at the time of my encounter, patient has just been extubated. OBJECTIVE: Vital signs: Blood pressure is 135/77, pulse of 106, respirations 17, temperature is 99.5 degrees. General: Ms. Murray is a 66-year-old female. She was in bed. Not in remarkable distress. Lungs: She did have some gross crepitations bilateral in the lungs, sound like possible aspiration. Cardiovascular: Tachycardic with a 2-3 over 6 murmur. Central Nervous System: She had her eyes open but she would not follow any commands, and she would move her extremities to painful stimuli. Abdomen: Soft. No hepatosplenomegaly. LABORATORY DATA: WBC: None for today. The chemistries reviewed are consistent with end-stage renal disease. ABG has been also reviewed. Patient has metabolic alkalosis. There was no chest x-ray done today. ASSESSMENT: 1. Status post cardiac arrest. 2. Persistent unresponsiveness, likely due to severe anoxic brain injury after cardiac arrest. I think eventually patient will be in a permanent vegetative state. 3. Hypotension on presentation, likely due to cardiogenic shock. This is improved. 4. End-stage renal disease. Patient gets intermittent dialysis. 5. Persistent hypoglycemia that has improved with the D 10 infusion. 6. Transaminitis, likely due to ischemic liver injury. GENERAL PLAN: 1. The patient has been extubated today. We still are going to follow very closely. 2. If she starts to desaturate, I think the plan is to reintubate her and then plan for tracheostomy and PEG.
--- NOTE | 2016-05-21 12:57 | PROGRESS NOTE ---
DATE: 05/21/2016 Ms. Murray is not significantly changed clinically. She has eye movements and continues vegetative with corneal reflexes present and no evidence of cognitive function, no evidence of awareness or interaction. I discussed again very frankly with daughter and son at the bedside my impression that she has an irreversible injury and that the best management, in my opinion, is to withdraw support. She has been extubated. Further plans will depend on her clinical course and on family's wishes. [facility]
--- NOTE | 2016-05-21 13:09 | PROGRESS NOTE ---
DATE: 05/21/2016 DATE AND TIME: 05/21/2016 at 0810 hours. SUBJECTIVE: The patient is currently intubated. She remains unresponsive. OBJECTIVE: HEENT: Normocephalic, atraumatic. She is orally intubated. Neck: Supple. Positive JVD. Cardiovascular: Regular rate and rhythm. Tachycardic. Systolic murmur noted. Pulmonary: She has rhonchi bilaterally. She is mechanically ventilated. Equal excursion. Abdomen: Soft. Hypoactive bowel sounds. : Not inspected. She has a Stout with scant urine. Extremities: She has 3+ edema of the lower extremities. She has significant dependent edema to the upper extremities, as well as dependent edema to the hips and back. Integumentary: Skin is warm and dry. LAB DATA: Sodium 139, potassium 4.1, CO2 26, BUN 15, creatinine 3.1. ASSESSMENT AND PLAN: 1. End-stage renal disease management. We are dialyzing the patient on a Thursday, , Thursday schedule. We understand that the patient may be extubated later today for a trial. If she remains in the hospital in the morning, we will plan to dialyze her and likely use slow, low efficient daily dialysis secondary to her fragile condition. 2. Electrolytes, acid-base balance. These are acceptable. Check labs in the morning. Adjust dialysis bath as warranted. Seen, data reviewed, discussed with Rishi Encinas on 05/21/16. I agree with the above assessment and plan of care. rg Dictated by DIPESH Williamson for Grey Posadas MD [facility]
[2016-05-21] MEDS: KEPPRA 750 MG in NS 100 ML IV SCH (17:22)
[2016-05-21] MEDS: MUCOMYST 20% INH SCH (19:27)
[2016-05-21] MEDS: MORPHINE IV PRN ×2 (20:28→23:33)
[2016-05-22] MEDS: D10W 1,000 ML IV SCH ×3 (00:02→23:55)
[2016-05-22] MEDS: DUONEB (A & A) INH SCH ×6 (03:13→22:53)
[2016-05-22] MEDS: CEREBYX IV SCH ×3 (03:30→20:24)
[2016-05-22 04:29] LABS: BE 2.9 mmoll (-3.0-3.0); BLOOD TYPE ARTERIAL; METHB 1.8 % (0.0-1.5); O2(CT) 6.2 mL/dL (15.0-23.0); PCO2(98.6) 45 mmHg (35-45); PO2(98.6) 96 mmHg (60-100); SAMPLE BLOOD; SAO2 98.7 % (95.0-100.0); THB 4.5 g/dL (11.5-17.4)
[2016-05-22 04:31] LABS: ALLEN TEST YES; DRAW SITE R RADIAL; MODALITY COOL AEROSOL
[2016-05-22 05:26] LABS: MANUAL DIFF NEEDED? NO
[2016-05-22 05:38] LABS: BASO% 0.2 % (0.0-0.8); EOS# 0.24 X1000 (0.0-0.7); EOS% 3.8 % (0.0-10.0); HEMATOCRIT 28.1 % (37.0-47.0); IMM GRAN# 0.03 X1000 (0.0-0.04); IMM GRAN% 0.5 % (0.0-0.5); LYMPH# 0.93 X1000 (1.2-3.4); LYMPH% 14.9 % (20.5-51.1); MCH 32.8 PG (27-31); MCV 102.6 FL (81-99); MONO# 0.95 X1000 (0.11-0.59); MONO% 15.2 % (1.7-9.3); NEUT% 65.4 % (42.2-75.2); PLT 138 X1000 (130-400); RBC 2.74 XMIL (4.2-5.4)
[2016-05-22 05:56] LABS: ALBUMIN 2.7 g/dL (3.5-5.0); CALCIUM 10.4 mg/dL (8.8-10.2); MAGNESIUM 1.8 mg/dL (1.5-2.7); POTASSIUM 5.2 mmol/L (3.5-5.1); TOTAL BILIRUBIN 0.23 mg/dL (0.20-1.00); TOTAL PROTEIN 6.3 g/dL (6.3-8.3)
--- NOTE | 2016-05-22 06:16 | Diag Imaging Result Document ---
PROCEDURE NAME: CHEST-PORTABLE - 05/22/2016 PORTABLE CHEST: COMPARISON: Compared to 05/20/2016. FINDINGS: The lungs are well expanded. The heart is borderline mildly prominent. Mild increased interstitial markings. No consolidation. No pleural effusions identified. A nasogastric tube overlies the esophagus and stomach. There are surgical clips in the right axilla. The endotracheal tube has been removed. No other interval change. IMPRESSION: Removal of the endotracheal tube, otherwise stable chest.
[2016-05-22] MEDS: MUCOMYST 20% INH SCH ×2 (08:02→19:19)
[2016-05-22] MEDS ORDERED: NS 2,000 ML ONE (08:35)
[2016-05-22] MEDS ORDERED: HEPARIN ONE (08:35)
--- NOTE | 2016-05-22 08:48 | PROGRESS NOTE ---
DATE: 05/22/2016 Ms. Murray is supine, extubated, breathing spontaneously. She had minimal spontaneous conjugate lateral eye movement, and eyelid opening and closing. Corneal reflex is a little more brisk on the left than the right this morning, but present bilaterally. She has brisk lateral eye movement with passive head turning. Pupils are small, round, uncertain reactivity to bright light. I did not notice any spontaneous limb movement. Neck is supple. IMPRESSION: Irreversible anoxic/ischemic brain injury, vegetative state. No suggestions from neurologic standpoint today. Thanks for allowing me to follow Ms. Murray.
[2016-05-22] MEDS: LOVENOX SUBQ SCH (09:04)
[2016-05-22] MEDS: SODIUM CHLORIDE 0.9% INJ SCH (09:04)
[2016-05-22] MEDS: PROTONIX IV SCH (09:04)
--- NOTE | 2016-05-22 11:48 | PROGRESS NOTE ---
DATE: 05/22/2016 SUBJECTIVE: The patient opened her eyes but does not follow any purposeful commands. Her son was at the bedside. All questions were invited and entertained. OBJECTIVE: Vital Signs: Blood pressure 113/85, pulse of 90, respirations 28, temperature 97.9 degrees, saturation of 100% on 35% FiO2. General Appearance: Elderly white female does not follow any commands. Appears to be comfortable. HEENT: Had the Ventimask in place. Neck: Supple. No JVD. No bruit. Cardiovascular: S1, S2. Normal rate and rhythm. No murmur, rubs, or gallops. Pulmonary: Clear to auscultation bilaterally. GI: Soft, nontender, nondistended. Normoactive bowel sounds. Musculoskeletal: No clubbing, cyanosis, or edema. LABORATORY: White count of 6.25, hemoglobin 9.0, hematocrit of 28.1, platelets of 138,000. Sodium 133, potassium 5.2, chloride 96, bicarb 23, BUN 20, creatinine 4.7, glucose of 92. ASSESSMENT/PLAN: This is a 66-year-old white female admitted to the hospital for cardiac arrest. 1. Status post cardiac arrest with persistent unresponsiveness most likely secondary to anoxic brain injury. Most likely the patient is in the permanent vegetative state. The family want nutrition but they do not want any kind of surgical intervention. I informed them that we can put the PEG tube in without doing minor surgery. I meet with the family tomorrow at 8:30 to talk to them about nutrition and PEG tubes. The patient cannot do TPN as long as her GI is working. 2. End-stage renal disease. The patient is still getting dialysis. CODE STATUS: The patient is still full code as of today.
[2016-05-22] MEDS: KEPPRA 750 MG in NS 100 ML IV SCH (18:28)
--- NOTE | 2016-05-22 19:17 | PROGRESS NOTE ---
DATE: 05/22/2016 SUBJECTIVE: No change except that she is off the ventilator. OBJECTIVE: Vital Signs: Blood pressure 197/66, heart rate 118, respirations 19, afebrile. General: Unresponsive woman on the ventilator. She does withdraw to pain and does respond to touching, and to touching eyelashes with blinking and withdrawal. Eyes are open and roving. Neck: Veins are distended. Heart: Regular. Lungs: Equal breath sounds. No crackles. Abdomen: Soft, nontender. Bowel sounds present. Extremities: Have 2+ edema. LABORATORY DATA: Sodium 133, potassium 5.2, chloride 96, bicarbonate 23, BUN 28, creatinine 4.7. IMPRESSION: End-stage kidney disease: She had her routine hemodialysis today in the form of SLEDD. We removed 3 L of ultrafiltration with a 4 potassium bath. I had a long conversation with the daughter and son. She has had no appreciable improvement thus far and we talked about overall goals of care, and tried to anticipate potential decisions that will have to be made regarding her ongoing care. Specifically we discussed the appropriateness of dialysis if she has no meaningful neurologic recovery. We talked about nutritional support as well. The daughter states that she is not ready to make any decisions about withdrawal of care feeling there is still some opportunity for recovery. She has made decisions not to place a surgical feeding tube, tracheostomy or to consider further resuscitation. I will continue to discuss these issues with then as time passes. I discussed what the anticipated course would be if we discontinued dialysis. We will follow.
[2016-05-22] MEDS: MORPHINE IV PRN (22:14)
[2016-05-23] MEDS: DUONEB (A & A) INH SCH ×6 (03:21→23:18)
[2016-05-23] MEDS: MORPHINE IV PRN (04:05)
[2016-05-23] MEDS: CEREBYX IV SCH ×3 (04:17→19:56)
[2016-05-23] MEDS: TYLENOL PR PRN (04:17)
[2016-05-23] MEDS: MUCOMYST 20% INH SCH ×2 (07:46→19:23)
[2016-05-23] MEDS ORDERED: NS 2,000 ML ONE (08:31)
[2016-05-23] MEDS ORDERED: HEPARIN ONE (08:31)
--- NOTE | 2016-05-23 09:49 | PROGRESS NOTE ---
DATE: 05/23/2016 SUBJECTIVE: Unresponsive. OBJECTIVE: Vital Signs: Blood pressure 152/97, heart rate 106, respirations 19, temperature 102 degrees. Intake 1.5 L. Output 3 L. General: She is more labored today with her respirations. She is having increased secretions but no evidence of aspiration. There has been no tube feed aspirate from the tracheal suction. Conjunctivae are pink. Neck: Neck veins are distended modestly. Heart: Regular. Lungs: Have diffuse rhonchi. Abdomen: Soft. Bowel sounds are diminished. Extremities: Have 1 to 2+ edema. No clubbing or cyanosis. LABORATORY DATA: None today. IMPRESSION: 1. Worsening respiratory dysfunction. We will dialyze her again today to exclude volume as a component of her respiratory failure. More likely, this is related to her inability to clear her secretions. 2. Probably makes sense to hold her tube feeds at this point. She is being treated with aggressive pulmonary toilet. Her family told me yesterday that they were opposed to a tracheostomy. Great outlook.
[2016-05-23] MEDS: PROTONIX IV SCH (10:34)
[2016-05-23] MEDS: SODIUM CHLORIDE 0.9% INJ SCH (10:34)
[2016-05-23] MEDS: LOVENOX SUBQ SCH (10:34)
--- NOTE | 2016-05-23 11:17 | PROGRESS NOTE ---
DATE: 05/23/2016 SUBJECTIVE: Ms. Murray has not shown significant clinical change. She continues clinically vegetative. I agree with decisions to reduce support. I do not have any new thoughts or new suggestions today. Thanks for allowing me to follow Ms. Murray.
[2016-05-23] MEDS: D10W 1,000 ML IV SCH (12:19)
--- NOTE | 2016-05-23 14:34 | PROGRESS NOTE ---
DATE: 05/23/2016 SUBJECTIVE: The patient is doing about the same. No changes. She will open her eyes with stimuli but does not follow any purposeful commands. Vital signs: Blood pressure 114/72, pulse of 107, respirations 16, temperature 100.0 degrees, saturation of 100% on 35% FiO2. General appearance: Black female in a vegetative state. Does not follow any purposeful commands. Cardiovascular: S1, S2. Mildly tachycardic. Lungs: Crackles bilaterally. GI: Soft, nontender, nondistended. Normoactive bowel sounds. Extremities: No clubbing, cyanosis, or edema. ASSESSMENT AND PLAN: This is a 66-year-old black female status post cardiac arrest. 1. Hypoxic brain injury, agree by Neurology and multiple subspecialties. The family still adamant about continuing to do feeding. They do not want PEG tube, they want IV feeding. I tried to meet with the patient's family this morning but she refused to meet with me regarding TPN. As long as her GI tract is working there is no reason for this patient to be on TPN. The family adamant about keeping the patient alive on artificial feeding, she had to have the PEG unless she has some abnormal issue with her GI tract. 2. Post a cardiac arrest. Most likely, the patient will not recover and will remain in a vegetative state. 3. DNR level 1.
[2016-05-23] MEDS: KEPPRA 750 MG in NS 100 ML IV SCH (17:03)
[2016-05-24] MEDS: DUONEB (A & A) INH SCH ×6 (02:46→23:30)
[2016-05-24 04:51] LABS: ALLEN TEST YES; BE 2.2 mmoll (-3.0-3.0); BLOOD TYPE ARTERIAL; DRAW SITE R RADIAL; PCO2(98.6) 46 mmHg (35-45); PO2(98.6) 85 mmHg (60-100); SAMPLE BLOOD; pH(98.6) 7.39 (7.35-7.45)
[2016-05-24] MEDS: CEREBYX IV SCH ×3 (04:51→20:37)
[2016-05-24 04:52] LABS: MODALITY COOL AEROSOL
[2016-05-24 05:03] LABS: MANUAL DIFF NEEDED? NO
[2016-05-24 05:20] LABS: BASO% 0.2 % (0.0-0.8); EOS# 0.09 X1000 (0.0-0.7); EOS% 0.8 % (0.0-10.0); HEMATOCRIT 28.6 % (37.0-47.0); HEMOGLOBIN 9.2 g/dL (12.0-16.0); IMM GRAN# 0.02 X1000 (0.0-0.04); IMM GRAN% 0.2 % (0.0-0.5); LYMPH# 0.85 X1000 (1.2-3.4); LYMPH% 7.8 % (20.5-51.1); MCH 33.3 PG (27-31); MCHC 32.2 g/dL (33-37); MCV 103.6 FL (81-99); MONO# 1.56 X1000 (0.11-0.59); MONO% 14.3 % (1.7-9.3); MPV 11.6 FL (7.4-10.4); NEUT% 76.7 % (42.2-75.2); PLT 158 X1000 (130-400); RBC 2.76 XMIL (4.2-5.4)
[2016-05-24 05:23] LABS: CALCIUM 11.4 mg/dL (8.8-10.2)
[2016-05-24] MEDS: MUCOMYST 20% INH SCH ×2 (08:01→19:45)
--- NOTE | 2016-05-24 08:39 | Diag Imaging Result Document ---
PROCEDURE NAME: CHEST-PORTABLE - 05/24/2016 PORTABLE CHEST: COMPARISON: 05/22/2016. FINDINGS: Nasogastric tube remains. There is stable borderline cardiomegaly. There is stable mild interstitial marking prominence. There is no dense consolidation, pleural effusion, or pneumothorax identified. IMPRESSION: Stable exam compared to prior.
[2016-05-24] MEDS: PROTONIX IV SCH (09:02)
[2016-05-24] MEDS: LOVENOX SUBQ SCH (09:03)
[2016-05-24] MEDS: D10W 1,000 ML IV SCH (09:06)
--- NOTE | 2016-05-24 12:32 | PROGRESS NOTE ---
DATE: 05/24/2016 SUBJECTIVE: The patient is doing about the same. She opened her eyes with stimuli. Does not follow any purposeful commands. No acute event reported by the overnight staff. OBJECTIVE: Vital Signs: Blood pressure 120/86, pulse 114, respirations 22, temperature 99.2 degrees, saturation of 92% on 35% of FiO2. General Appearance: Obese, black female. HEENT: Anicteric. Clear conjunctivae. Neck: Supple. No JVD. No bruit. Cardiovascular: S1, S2. Mild tachycardic. GI: Soft, nontender, nondistended. Musculoskeletal: No clubbing, cyanosis, or edema. ASSESSMENT AND PLAN: 66-year-old black female admitted to the hospital who suffered a cardiac arrest. Hypoxic brain injury. No signs of improvement. No changes in neurological condition. The family is still adamant about keeping her on the feeding tubes. The nursing staff talked with the family again this morning. They were surprised as if they have never heard that the patient has anoxic brain injury even though we have been keeping them up-to-date every single day. We will continue with supportive care for now.
[2016-05-24] MEDS: ATIVAN IV PRN (12:57)
[2016-05-24] MEDS: TRANSDERM-SCOP TD SCH (13:09)
--- NOTE | 2016-05-24 14:57 | PROGRESS NOTE ---
DATE: 05/24/2016 SUBJECTIVE: She had more respiratory difficulty today and she had significant upper airway bleeding following aggressive suctioning. Currently, she is breathing comfortably. OBJECTIVE: Vital Signs: Blood pressure 125/78, heart rate 113, respirations 19, temperature 99.6 degrees. Intake and output are incomplete. She had dialysis yesterday, but the output was not recorded. General: No acute distress. Skin: Warm and dry. Neck: Veins are not appreciated. Heart: Regular and tachycardic. Lungs: Equal breath sounds, a few rhonchi. Abdomen: Soft and nontender. Diminished bowel sounds. Extremities: Edema 2+. IMPRESSION: Anoxic encephalopathy. I had another discussion with the family today. We will continue her current level of care, though if she does have a cardiac or pulmonary arrest, we will not intervene. It is important to them that we continue aggressive pulmonary toilet and general support with antibiotics, dialysis, et cetera. She would like to avoid further deep respiratory suctioning, however, given pain and trauma.
[2016-05-24] MEDS: MORPHINE IV PRN (17:33)
[2016-05-24] MEDS: KEPPRA 750 MG in NS 100 ML IV SCH (17:33)
[2016-05-25] MEDS: DUONEB (A & A) INH SCH ×6 (03:45→23:35)
[2016-05-25] MEDS: CEREBYX IV SCH ×3 (04:15→20:02)
[2016-05-25] MEDS: D10W 1,000 ML IV SCH (05:25)
--- NOTE | 2016-05-25 06:48 | Diag Imaging Result Document ---
PROCEDURE NAME: CHEST-PORTABLE - 05/25/2016 PORTABLE CHEST: COMPARISON: 05/24/2016. FINDINGS: A nasogastric tube overlies the esophagus and stomach. The lungs are well expanded. The heart is mildly enlarged. Mild vascular distention. No pleural effusion is identified. There are surgical clips in the right axilla. No consolidation. IMPRESSION: Stable chest.
[2016-05-25] MEDS: PROTONIX IV SCH (08:10)
[2016-05-25] MEDS: SODIUM CHLORIDE 0.9% INJ SCH (08:10)
[2016-05-25] MEDS: MUCOMYST 20% INH SCH ×2 (08:27→19:57)
--- NOTE | 2016-05-25 10:58 | PROGRESS NOTE ---
DATE: 05/25/2016 SUBJECTIVE: The patient is doing about the same, a little worse. She struggling to breathe. Has a lot of upper airway congestion. PHYSICAL EXAMINATION: Vital Signs: Blood pressure 122/75, pulse of 98, respirations 18, temperature of 98.8 degrees, saturation of 100% on a nonrebreather mask. General Appearance: Black female. Not responding to any commands today. She did not even open her eyes. Cardiovascular: S1 and S2. Mildly tachycardic. Pulmonary: Coarse crackles, upper airway. GI: Soft. Lower Extremities: No clubbing, cyanosis, or edema. LABORATORY: None were ordered for today. ASSESSMENT AND PLAN: This is a 66-year-old, black female with post cardiac arrest. Post cardiac arrest. The patient is having hypoxic brain injury, concurred by neurologist. Family still has not decided whether they want to proceed with comfort care. At this point, they want everything done. Her daughter is very adamant about keeping her on tube feeding and doing dialysis. She has refused to talk about comfort care or hospice. She does not feel like talking to any one of us at this point about her plan of care. The patient most likely is not going to survive within the next week. We will continue to monitor the patient for now.
--- NOTE | 2016-05-25 11:20 | Diag Imaging Result Document ---
PROCEDURE NAME: MARTHA ABDOMEN - 05/25/2016 ABDOMEN SINGLE VIEW: COMPARISON: Compared to 05/08/2013. FINDINGS: There is a right inguinal vascular catheter. The bowel loops are not dilated. No organomegaly. There are scattered calcifications believed to be phleboliths. IMPRESSION: No acute abnormality.
[2016-05-25] MEDS: MORPHINE IV PRN (14:39)
[2016-05-25] MEDS: TYLENOL PR PRN (15:20)
[2016-05-25] MEDS: KEPPRA 750 MG in NS 100 ML IV SCH (16:53)
[2016-05-26] MEDS: D10W 1,000 ML IV SCH (00:37)
[2016-05-26] MEDS: DUONEB (A & A) INH SCH ×3 (03:41→11:27)
[2016-05-26] MEDS: CEREBYX IV SCH ×3 (04:06→20:16)
[2016-05-26 05:43] LABS: ALBUMIN 2.5 g/dL (3.5-5.0); CALCIUM 10.6 mg/dL (8.8-10.2); POTASSIUM 6.2 mmol/L (3.5-5.1)
[2016-05-26] MEDS ORDERED: HUMULIN R IV ONE (06:24)
[2016-05-26] MEDS ORDERED: D50W SYRINGE IV ONE (06:24)
[2016-05-26] MEDS ORDERED: ALBUTEROL 0.5% INH CONC FOR HYPERKALEMIA INH ONE (06:25)
[2016-05-26] MEDS: MUCOMYST 20% INH SCH ×2 (07:13→19:43)
--- NOTE | 2016-05-26 07:45 | Diag Imaging Result Document ---
PROCEDURE NAME: CHEST-PORTABLE - 05/26/2016 ERECT AP PORTABLE CHEST, 05/26/2016 AT 0525 HOURS: FINDINGS: There is an NG tube with its tip below the diaphragm. There is cardiomegaly. There is slightly worsened pulmonary edema particularly over the right lower lobe. IMPRESSION: Cardiomegaly and pulmonary edema.
[2016-05-26] MEDS ORDERED: NS 2,000 ML ONE (07:54)
--- NOTE | 2016-05-26 08:41 | PROGRESS NOTE ---
DATE: 05/26/2016 SUBJECTIVE: Clinically, she is more ill-appearing today. Increased respiratory rate. She remains unresponsive. OBJECTIVE: Vital Signs: Blood pressure 126/67, heart rate 112, respirations 20, temperature 99.6. Intake 1.3 L. Output zero. General: Increased work of breathing as above. Skin: Warm and dry. Eyes: Conjunctivae are pink. Neck: Neck veins are distended. Heart: Regular and tachycardic. Lungs: Have diffuse rhonchi and crackles. Abdomen: Soft, nontender. Minimal bowel sounds appreciated. Extremities: Have 2+ edema. No clubbing or cyanosis. LABORATORY DATA: Sodium 130, potassium 6.2, chloride 92, bicarbonate 23, BUN 39, creatinine 5.9, hemoglobin 9.2. IMPRESSION: 1. End-stage kidney disease: She will have a SLEDD today using a 4 potassium bath, 27 bicarbonate and a goal of 6 L as tolerated. 2. Status post cardiac arrest with anoxic encephalopathy. No obvious change in her status. We will continue to abide by the a guidance given by the family. 3. Respiratory status. Worse today than when I last saw her on Thursday. She has a poor cough and has a tendency to develop mucous plugging. Because of her tendency to bleed, the family is instructed to no longer perform deep suction. Continue current pulmonary toilet.
[2016-05-26] MEDS: LEVOPHED 8 MG in D5 1/2 NS 250 ML IV SCH (10:03)
[2016-05-26] MEDS ORDERED: ALBUMIN 25% IV ONE (11:37)
[2016-05-26] MEDS: SODIUM CHLORIDE 0.9% INJ SCH (14:33)
[2016-05-26] MEDS: PROTONIX IV SCH (14:33)
[2016-05-26] MEDS: XOPENEX NEB INH SCH ×3 (14:57→23:17)
[2016-05-26] MEDS: REGLAN IV SCH (16:24)
[2016-05-26] MEDS: KEPPRA 750 MG in NS 100 ML IV SCH (16:24)
--- NOTE | 2016-05-26 16:56 | PROGRESS NOTE ---
DATE: 05/26/2016 SUBJECTIVE: The patient remains unresponsive. No acute events noted overnight. OBJECTIVE: Vital Signs: Temperature 98.2 degrees, blood pressure 126/81, heart rate 112, respirations 24, O2 sat 96% on a mask. General: This is a chronically ill- appearing, elderly female, lying in bed, in no acute distress. Head: Normocephalic, atraumatic. Heart: S1, S2. Normal, tachycardic. Lungs: Coarse breath sounds with crackles and diffuse rhonchi. Abdomen: Hypoactive bowel sounds. Soft, nontender, nondistended. Extremities : 2 to 3+ edema in the upper extremities. Trace edema in the lower extremities. Neurologic: The patient is unresponsive. LABS: Sodium 130, potassium 6.2, chloride 92, CO2 23, BUN 39, creatinine 5.9, glucose 94, calcium 10.6, phosphorus 3.9. CHEST X-RAY: Shows cardiomegaly and pulmonary edema. ASSESSMENT AND PLAN: 1. Acute hypoxemic respiratory failure status post extubation. The patient is currently on a "aerosol mask." Her chest x-ray still shows pulmonary edema. We will continue with bronchodilator therapy. Volume status to be addressed during the patient's SLED treatment. 2. Anoxic brain injury. The patient remains in a vegetative state. There has been no change in her neurologic status. Continue on keppra. 3. Acute pulmonary edema. Continue with SLED as directed by the rehab care assistant. 4. End-stage renal disease. Management as per the rehab care assistant. 5. Hyperkalemia. This will be addressed today during SLED. 6. Constipation. We will give the patient a Dulcolax suppository. The abdominal x-ray done yesterday was unremarkable. 7. Severe protein calorie malnutrition. We will start the patient on IV Reglan and resume tube feeds, and monitor closely for residual. 8. Status post cardiac arrest. Aware. The etiology for the cardiac arrest is unknown. Continue supportive care. 9. Disposition. I had an extensive discussion with the patient's daughter, Dian Murray, this afternoon. She states that she would like the patient to be a DNR level 2 and that she would like for the tube feeding to be resumed. I stressed the importance of getting the patient moved out of the ICU and for us to start trying to pursue discharge planning with her to a [facility] versus [facility] facility. I also called both [facility] and [facility] both of which declined to accept the patient in transfer. I notified . Dian Murray about what facilities said. I also discussed with her, the patient's results from the ER visit from 05/10/16. MTDD
[2016-05-26] MEDS: DULCOLAX PR SCH (20:17)
[2016-05-26] MEDS: MORPHINE IV PRN (21:34)
[2016-05-27] MEDS: REGLAN IV SCH ×4 (00:10→23:35)
[2016-05-27] MEDS: XOPENEX NEB INH SCH ×6 (03:35→23:08)
[2016-05-27] MEDS: CEREBYX IV SCH ×3 (05:04→20:38)
[2016-05-27 05:58] LABS: HEMATOCRIT 20.4 % (37.0-47.0); HEMOGLOBIN 6.6 g/dL (12.0-16.0); MCH 32.7 PG (27-31); MCHC 32.4 g/dL (33-37); MPV 11.5 FL (7.4-10.4); RBC 2.02 XMIL (4.2-5.4)
[2016-05-27 06:14] LABS: ALBUMIN 2.8 g/dL (3.5-5.0); POTASSIUM 5.1 mmol/L (3.5-5.1)
--- NOTE | 2016-05-27 07:36 | Diag Imaging Result Document ---
PROCEDURE NAME: CHEST-PORTABLE - 05/27/2016 SINGLE FRONTAL RADIOGRAPH OF THE CHEST: COMPARISON: 05/26/2016. FINDINGS: NG tube projects below the diaphragm and is assumed to be in the stomach. There is suggestion of mild interstitial edema that is approximately stable. There is increased opacity at the lung bases, particularly on the right, likely representing increased atelectasis. No other new consolidation is identified. Cardiac silhouette is stable. IMPRESSION: Increased opacities at the lung bases, particularly on the right, likely representing atelectasis.
[2016-05-27] MEDS ORDERED: NS 500 ML IV ONE (07:51)
[2016-05-27] MEDS: MUCOMYST 20% INH SCH ×2 (07:56→19:47)
[2016-05-27] MEDS: PROTONIX IV SCH (08:27)
[2016-05-27] MEDS: SODIUM CHLORIDE 0.9% INJ SCH (08:27)
--- NOTE | 2016-05-27 10:05 | Diag Imaging Result Document ---
PROCEDURE NAME: THORAX/ABDOMEN/PELVIS W/O CONT - 05/27/2016 CT CHEST, ABDOMEN AND PELVIS WITHOUT CONTRAST: TECHNIQUE: Dose-reduction protocol. CHEST WITHOUT: FINDINGS: Prominent atherosclerosis including the coronary arteries. Heart is enlarged. No effusions. There are small mediastinal lymph nodes. Dense infiltrates are found in the lower lobes with air bronchograms. There is a nasogastric tube in the esophagus which enters the stomach. Mild central vascular prominence. IMPRESSION: 1. Bilateral lower lobe pneumonia. 2. Prominent atherosclerosis. 3. Cardiomegaly with mild central vascular distension. ABDOMEN AND PELVIC WITHOUT CONTRAST: COMPARISON: Compared to 04/29/2011. FINDINGS: Normal spleen. The kidneys are markedly atrophic and contain multiple cysts. There are vascular calcifications and questionable small renal stones as well. No hydronephrosis. No focal hepatic abnormality identified on this noncontrasted exam. Normal gallbladder and pancreas. There is thickening tot he adrenal glands. This is similar to prior study. There is a small infrarenal abdominal aortic aneurysm measuring 3.4 cm. This is slightly larger than on the prior study. No bowel obstruction. A Stout catheter has the urinary bladder decompressed. Normal uterus. Neither ovary is enlarged. Trace fluid in the pelvis. There are calcifications in the pancreatic head. The bones are osteopenic. No compressed vertebra. IMPRESSION: 1. Prominent atherosclerosis with small aortic aneurysm. 2. Markedly atrophic kidneys with scattered cysts and calcifications. 3. Thickening to each adrenal gland. This is unchanged. 4. The urinary bladder is decompressed with a Stout catheter.
--- NOTE | 2016-05-27 10:29 | PROGRESS NOTE ---
DATE: 05/27/2016 TIME SEEN: 0745 SUBJECTIVE: Ms. Murray is resting quietly in bed. She remains on a face mask per Ventimask. She has tachypnea continuing. She remains unresponsive to verbal stimuli. OBJECTIVE: Vital Signs: Her most recent vital signs, her temperature is 99.2 degrees, blood pressure 93/45, heart rate 127, respirations are 26. She remains on a 40% face mask. Last recorded saturation 98%. She has had 1061 in. She has had 749 out. She has had 744 on dialysis. Laboratory Data: This a.m., sodium 139, potassium 5.1, chloride is 101, CO2 24 , BUN 28, creatinine 4.6, glucose 129, anion gap 14, calcium is 12. Phosphorus 1.9, albumin 2.8. White count 6.61, hemoglobin 6.6, hematocrit 20.4, with a platelet count of 160,000. Physical Examination: General: This is a 66-year-old, female. She is resting in bed. She is in no acute distress. She is ventilator dependent. HEENT: Normocephalic, atraumatic. Conjunctivae pale. Mucous membranes are dry. Neck: Supple. Trachea midline. No JVD. Cardiovascular: Regular rate and rhythm. She is tachycardic on the monitor. No murmur or gallop appreciated. Lungs: She has diffuse rhonchi and crackles. This is status post treatment yesterday. Chest x-ray shows bilateral basilar atelectasis. Again, we will attempt to challenge her dialysis in the a.m. Abdomen: This is soft and nontender noted. Minimal bowel sounds appreciated. Genitourinary: Patient has a Stout catheter in place. Minimal urine out. Extremities: She continues with 2+ edema to the lower extremities. Her right hand is greater than her left 4+ edema with some facial edema present. Neurological: As mentioned. ASSESSMENT AND PLAN: 1. End-stage renal disease. Patient had sustained low-efficiency dialysis yesterday. No indications for dialysis today. We will plan for tomorrow and attempt to challenge her dry weight. 2. Status post cardiac arrest with anoxic encephalopathy. Her condition is unchanged. She is now off the ventilator. She remains on a face mask. No indications for any changes per family request. 3. Electrolytes. These are stable. 4. Acid-base balance. This remains stable. 5. Anemia. This remains low. Hemoglobin down to 6.6 from 9.2. We will plan to transfuse 1 unit of packed red blood cells today. 6. Respiratory status. Again, patient has been extubated. She does have coarse rhonchi. 7. Hemodynamics. Patient remains tachypneic. She remains in tachycardia. They have had to put her Levophed back on yesterday. Hemoglobin has dropped to 6.6. I had spoken with the primary care team. We are in agreement to transfusing [address] of the abdomen and pelvis to determine possible cause. I would to thank you for allowing us to follow with this patient. Seen, data reviewed, discussed with Julianne Kearney on 05/27/16. I agree with the above assessment and plan of care. rg Dictated by DIPESH Aguilar for Grey Posadas MD [facility]
[2016-05-27] MEDS ORDERED: VANCOMYCIN 1 GM/NS 250 ML IV ONE (10:42)
--- NOTE | 2016-05-27 11:24 | PROGRESS NOTE ---
DATE: 05/27/2016 SUBJECTIVE: The patient currently remains unresponsive. She remains on Levophed drip which was increased overnight. The patient is also tachycardic. OBJECTIVE: Vital Signs: Temperature 98.7 degrees, blood pressure 107/73, heart rate 129, respirations 28, O2 saturations 93% on the mask. General: This is a chronically ill-appearing, elderly female, lying in bed. Head normocephalic and atraumatic. Heart: S1, S2 normal. Tachycardic. Lungs: Coarse breath sounds bilaterally with crackles and rales throughout all lung aguilera. Abdomen: Positive bowel sounds, soft, nontender, nondistended. Extremities: The patient appears to have anasarca involving the upper extremities. Trace edema in the lower extremities. Neurologic: The patient remains unresponsive. She does not follow commands. She does have involuntary blinking of her eyes. LABORATORY DATA: White blood cell count 6.6, hemoglobin 6.6, hematocrit 20, platelets 160,000. Sodium 139, potassium 5.1. Chloride 101. CO2 of 24, BUN 28, creatinine 4.6, glucose 129, phosphorus 1.9. Calcium 12. Albumin 2.8. CT of the chest, abdomen, and pelvis reveals bilateral lower lobe pneumonia. Mild central vascular distention. No evidence of bowel obstruction. ASSESSMENT AND PLAN: 1. Acute hypoxemic respiratory failure, status post extubation. The patient continues to require a large amount of supplemental oxygen. Her CT done this morning reveals bilateral lower lobe pneumonia as well as pulmonary edema. Broad-spectrum IV antibiotics will be initiated after blood cultures and a sputum Gram stain and culture have been obtained. We will continue with bronchodilator therapy. We will consult Dr. Lafleur for further assistance. 2. Bilateral lower lobe pneumonia. We will order a sputum Gram stain and culture, blood cultures, and start the patient on broad-spectrum IV antibiotic therapy. 3. Volume overload. Management as per the airdrop systems technician. 4. Sepsis, most likely secondary to pneumonia. Continue with Levophed and IV antibiotics will be initiated today. We will follow up on the blood and sputum cultures. 5. Anoxic brain injury. Unchanged. 6. End-stage renal disease. Management as per the airdrop systems technician. 7. Hypercalcemia. The patient's calcium is 12 today. We will defer to the airdrop systems technician regarding treatment. 8. Severe protein calorie malnutrition. Continue with Nephro tube feeds. 9. Status post cardiac arrest. Aware. 10. Severe anemia. The patient does not have any active bleeding that is noticeable on exam today. The patient is scheduled to receive 1 unit of packed red blood cells today. We will continue to monitor the patient's hemoglobin and hematocrit closely. 11. Gastrointestinal prophylaxis. Continue on intravenous Protonix. 12. Deep vein thrombosis prophylaxis. Continue with sequential compression devices. We are avoiding anticoagulation due to the patient's issues with upper airway bleeding over the weekend. 13. The patient is currently a DNR LEVEL 2. The patient remains critically ill with a high risk of mortality. [facility]ENTER[facility]
[2016-05-27] MEDS: MORPHINE IV PRN (11:47)
[2016-05-27] MEDS: TRANSDERM-SCOP TD SCH (12:28)
[2016-05-27] MEDS: LEVOPHED 8 MG in D5 1/2 NS 250 ML IV SCH (12:41)
[2016-05-27] MEDS ORDERED: LACRI-LUBE OPH OINT OPH ONE (13:48)
[2016-05-27] MEDS: MERREM 500 MG in NS 50 ML IV SCH (14:39)
[2016-05-27] MEDS: NS NEB INH SCH (16:05)
[2016-05-27] MEDS: TEARISOL OPH SOLUTION OPH SCH ×2 (17:58→20:38)
[2016-05-27] MEDS: KEPPRA 750 MG in NS 100 ML IV SCH (17:58)
--- NOTE | 2016-05-27 19:25 | CONSULTATION ---
DATE OF CONSULTATION: 05/27/2016 CONCLUSION: Patient is being seen by me because she appears to have developed a bibasilar pneumonia. The patient is a dialysis patient. She has developed respiratory failure. RECOMMENDATIONS: I agree with placing the patient on meropenem and vancomycin. Unfortunately, we were not able to get a sputum specimen because the family did not want to stick a catheter down the patient's throat and she is not coughing up any sputum on her own. Blood cultures have been drawn. An earlier sputum from the patient did grow a normal kristin. The patient 's CBC shows a low white count of 6610, hemoglobin 6.1 and platelet count 160,000. Patient has just had CT scan the abdomen pelvis and it did show bibasilar infiltrates consistent with pneumonia. REVIEW OF SYSTEMS: Unable to be obtained from patient. ALLERGIES: The patient's does not have any allergies. MEDICAL HISTORY: Stroke. End-stage renal disease. Hyperlipidemia. Depression. SURGICAL HISTORY: Laminectomy. Right mastectomy. Toe surgery. AV fistula in the right arm and an Mike Split catheter in the right groin. PHYSICAL EXAMINATION: Vital Signs: Temperature is 99.3 degrees, pulse 135, respirations 27, blood pressure 119/66. Generally: This is an ill-appearing, elderly female. She is obtunded. Ear, nose and throat: No drainage noted from the nose or ears. She did not respond to verbal stimuli. Neck: No meningismus. Lungs: Scattered rhonchi bilaterally. Cardiovascular: Heart rate is regular and rapid. There were diminished peripheral pulses. Abdomen: Soft and apparently not tender. Chest: The patient has had a right mastectomy. Extremities: She has an AV fistula in the right arm and in the right groin there is an Mike Split catheter. Neurologic: As mentioned above, patient is obtunded. She did not respond to verbal stimuli. During my exam I did not see her move except she is breathing on her own. Thank you for the consult. [facility]OSPITALL[facility]
[2016-05-27] MEDS: DULCOLAX PR SCH (20:38)
[2016-05-28] MEDS: XOPENEX NEB INH SCH ×6 (02:59→22:41)
[2016-05-28] MEDS: CEREBYX IV SCH ×3 (03:29→20:29)
[2016-05-28 04:59] LABS: BASO% 0.1 % (0.0-0.8); EOS# 0.06 X1000 (0.0-0.7); EOS% 0.6 % (0.0-10.0); HEMATOCRIT 21.7 % (37.0-47.0); HEMOGLOBIN 7.1 g/dL (12.0-16.0); IMM GRAN# 0.03 X1000 (0.0-0.04); IMM GRAN% 0.3 % (0.0-0.5); LYMPH# 0.44 X1000 (1.2-3.4); LYMPH% 4.2 % (20.5-51.1); MANUAL DIFF NEEDED? YES; MCH 31.6 PG (27-31); MCHC 32.7 g/dL (33-37); MCV 96.4 FL (81-99); MONO# 0.46 X1000 (0.11-0.59); MONO% 4.4 % (1.7-9.3); MPV 11.8 FL (7.4-10.4); NEUT% 90.4 % (42.2-75.2); PLT 174 X1000 (130-400); RBC 2.25 XMIL (4.2-5.4)
[2016-05-28] MEDS: LEVOPHED 8 MG in D5 1/2 NS 250 ML IV SCH (05:23)
[2016-05-28 05:44] LABS: ALBUMIN 2.6 g/dL (3.5-5.0); POTASSIUM 5.7 mmol/L (3.5-5.1)
[2016-05-28 05:53] LABS: CALCIUM 13.3 mg/dL (8.8-10.2)
[2016-05-28] MEDS ORDERED: CARDIZEM IV ONE (06:11)
[2016-05-28] MEDS: REGLAN IV SCH ×3 (06:24→22:44)
[2016-05-28] MEDS: CARDIZEM 100 MG/NS 100 ML IV SCH ×2 (06:25→11:30)
[2016-05-28 06:26] LABS: BANDS 22 % (0-1); LYMPHS 3 % (21-51); MONO 2 % (1-9); TARGET CELLS OCCASIONAL
--- NOTE | 2016-05-28 07:05 | EKG Report ---
Test Performed on : 05/28/2016 05:59:19 AM Test Reason : No Order in Six3 Blood Pressure : / mmHG Vent. Rate : 156 BPM Atrial Rate : 129 BPM P-R Int : 000 ms QRS Dur : 092 ms QT Int : 276 ms P-R-T Axes : 000 -09 155 degrees QTc Int : 444 ms Atrial fibrillation. with rapid ventricular response. Septal infarct (cited on or before 21-SEP-2012) ST & T wave abnormality, consider lateral ischemia Abnormal ECG When compared with ECG of 13-MAY-2016 08:57, Atrial fibrillation. has replaced Sinus rhythm. Vent. rate has increased BY 93 BPM T wave inversion now evident in Lateral leads Confirmed by Arielle TADEO, James Sanchez ([id number]) on 05/29/2016 9:27:55 AM
[2016-05-28] MEDS ORDERED: NS 2,000 ML ONE ×2 (07:31→14:45)
[2016-05-28] MEDS: MUCOMYST 20% INH SCH ×2 (07:32→19:42)
[2016-05-28] MEDS: NS NEB INH SCH (07:33)
--- NOTE | 2016-05-28 08:28 | Diag Imaging Result Document ---
PROCEDURE NAME: CHEST-PORTABLE - 05/28/2016 SINGLE FRONTAL RADIOGRAPH OF THE CHEST: COMPARISON: 05/27/2016. FINDINGS: The NG tube projects below the diaphragm and out of the field of view. Minimal atelectasis at the lung base on the left is stable. There is slight increased opacity at the right lung base. This probably represents a combination of atelectasis and overlying infiltrate. There may be a small right effusion. Cardiac silhouette is stable. IMPRESSION: Slight increased opacity at the right lung base suggesting some worsening of right basilar atelectasis and/or infiltrate.
[2016-05-28] MEDS: TEARISOL OPH SOLUTION OPH SCH ×4 (08:29→20:30)
[2016-05-28] MEDS: PROTONIX IV SCH (08:29)
[2016-05-28] MEDS ORDERED: CORDARONE 150 MG/D5W 100 ML IV ONE (08:37)
[2016-05-28] MEDS ORDERED: CORDARONE 360 MG/D5W 200 ML IV ONE (08:37)
[2016-05-28] MEDS ORDERED: CORDARONE 150 MG/D5W 100 ML ONE (08:49)
[2016-05-28] MEDS: NEO-SYNEPHRINE 50 MG in NS 250 ML IV SCH ×5 (09:32→22:05)
--- NOTE | 2016-05-28 10:43 | PROGRESS NOTE ---
DATE: 05/28/2016 SUBJECTIVE: Unchanged. OBJECTIVE: Vital Signs: Blood pressure 108/73, heart rate atrial fibrillation in the 160s, respirations 20-25, afebrile. Intake 2 L. Output 0. General Exam: Unresponsive. Skin: Warm and dry. Neck: Neck veins are not appreciated. Heart: Irregular and tachycardic. Lungs: Have equal breath sounds with diffuse crackles and rhonchi. Abdomen: Soft and nontender. Bowel sounds are diminished. Extremities: Have 3+ edema. No clubbing or cyanosis. LABORATORY DATA: Sodium 140, potassium 5.7, chloride 100, bicarbonate 25, BUN 51, creatinine 5.9, hemoglobin 7.1. IMPRESSION: 1. End-stage kidney disease. She is too unstable for hemodialysis this morning. We will reassess this, this afternoon and initiate dialysis if her vital signs are more stable. Her hypotension is significantly limiting her ultrafiltration and therefore the effectiveness of her treatments. 2. Electrolytes: Moderate hyperkalemia. That will be managed by dialysis when able. She has developed significant hypercalcemia in the last 48 hours. This is likely from immobilization in the context of baseline renal osteodystrophy. We will use a 2.0 calcium bath today to address this with treatment.
[2016-05-28] MEDS: LACRI-LUBE OPH OINT OPH PRN (11:42)
[2016-05-28] MEDS: MERREM 500 MG in NS 50 ML IV SCH (12:00)
[2016-05-28] MEDS ORDERED: VANCOMYCIN 1 GM/NS 250 ML IV SCH (14:00)
[2016-05-28] MEDS ORDERED: NS 2,000 ML MISC PRN (14:11)
[2016-05-28] MEDS ORDERED: ALBUMIN 25% IV ONE (14:12)
[2016-05-28] MEDS ORDERED: CORDARONE 540 MG in D5W 289.2 ML IV ONE (15:00)
--- NOTE | 2016-05-28 16:38 | PROGRESS NOTE ---
DATE: 05/28/2016 PRESENT ILLNESS: The patient has a bibasilar pneumonia. She had a cardiac arrest and has anoxic brain damage. MEDICATIONS: The patient currently is receiving a combination of vancomycin and meropenem. The doses of the antibiotics have been modified because the patient has end-stage renal disease and is on hemodialysis. Although now dialysis is unable to be performed because of the patient's low blood pressure. PHYSICAL EXAMINATION: Vital Signs: Temperature is 97.8 degrees, pulse 120, respirations 18, blood pressure 91/56. General: This is an ill-appearing, elderly female. She is obtunded. Head, eyes, ears, nose, and throat: No drainage noted from the nose or ears. Neck: No meningismus. Lungs: Clear to auscultation. Cardiovascular: Regular heart rate. Abdomen: Soft and nontender. Extremities: The patient has an AV fistula in the right arm. The AV fistula does not have much of a thrill or bruit. This is probably because the patient's blood pressure is low. In the right groin the patient has a dialysis catheter present. LAB AND X-RAY: Chest x-ray today shows bibasilar atelectasis versus pneumonia. It is more prominent on the right side. The patient's CBC shows a white count of 10,570, hemoglobin 7.1, platelet count 274,000. Creatinine is 5.9. The GFR is 9. ASSESSMENT AND PLAN: The patient has pneumonia. I am going to continue with the current antibiotics. The patient's comorbidities include the fact that she has end-stage renal disease and is on dialysis. She also has anoxic encephalopathy.
[2016-05-28] MEDS: KEPPRA 750 MG in NS 100 ML IV SCH (18:09)
[2016-05-28] MEDS: DULCOLAX PR SCH (20:30)
[2016-05-29] MEDS: NEO-SYNEPHRINE 50 MG in NS 250 ML IV SCH ×5 (01:08→14:46)
[2016-05-29] MEDS: XOPENEX NEB INH SCH ×6 (03:00→23:02)
[2016-05-29] MEDS: CEREBYX IV SCH ×3 (03:16→21:18)
[2016-05-29] MEDS: MORPHINE IV PRN ×4 (04:14→21:33)
[2016-05-29] MEDS: CARDIZEM 100 MG/NS 100 ML IV SCH (04:15)
[2016-05-29 04:24] LABS: ALLEN TEST YES; BE 3.2 mmoll (-3.0-3.0); BLOOD TYPE ARTERIAL; DRAW SITE R RADIAL; METHB 1.8 % (0.0-1.5); O2(CT) 14.6 mL/dL (15.0-23.0); PCO2(98.6) 42 mmHg (35-45); PO2(98.6) 81 mmHg (60-100); SAMPLE BLOOD; SAO2 97.4 % (95.0-100.0); pH(98.6) 7.43 (7.35-7.45)
[2016-05-29 04:25] LABS: MODALITY COOL AEROSOL
[2016-05-29 05:15] LABS: BASO% 0.3 % (0.0-0.8); EOS# 0.08 X1000 (0.0-0.7); EOS% 0.5 % (0.0-10.0); HEMATOCRIT 23.7 % (37.0-47.0); HEMOGLOBIN 8.2 g/dL (12.0-16.0); IMM GRAN# 0.07 X1000 (0.0-0.04); IMM GRAN% 0.5 % (0.0-0.5); LYMPH# 0.83 X1000 (1.2-3.4); LYMPH% 5.3 % (20.5-51.1); MANUAL DIFF NEEDED? YES; MCH 32.2 PG (27-31); MCHC 34.6 g/dL (33-37); MCV 92.9 FL (81-99); MONO# 0.76 X1000 (0.11-0.59); MONO% 4.9 % (1.7-9.3); MPV 12.1 FL (7.4-10.4); NEUT% 88.5 % (42.2-75.2); PLT 187 X1000 (130-400); RBC 2.55 XMIL (4.2-5.4)
[2016-05-29 05:38] LABS: ALBUMIN 3.1 g/dL (3.5-5.0); POTASSIUM 4.3 mmol/L (3.5-5.1)
[2016-05-29 05:40] LABS: CALCIUM 13.8 mg/dL (8.8-10.2)
[2016-05-29] MEDS: REGLAN IV SCH ×3 (06:09→22:25)
--- NOTE | 2016-05-29 07:19 | PROGRESS NOTE ---
DATE: 05/28/2016 SUBJECTIVE: The patient remains unresponsive; however, she did go into atrial fibrillation with rapid ventricular rate and the Cardizem drip was started and also and the Levophed drip is still going. OBJECTIVE: Vital Signs: Temperature 97.8 degrees, blood pressure 91/56, heart rate 120, respirations 18, O2 sats 93% on mask. General: This is a chronically ill-appearing, elderly female, lying in bed in no acute distress. Head: Normocephalic, atraumatic. Heart: S1, S2 normal. Irregularly irregular rate and rhythm. Lungs: Coarse breath sounds with crackles and rhonchi bilaterally. Abdomen: Hypoactive bowel sounds. Soft, nondistended. Extremities: The patient has anasarca of the upper extremities and trace edema in the lower extremities. Neurologic: The patient is unresponsive. LABS: White blood cell count 10, hemoglobin 7.1, hematocrit 21, platelets 174,000. Sodium 140, potassium 5.7, chloride 100, CO2 25, BUN 51, creatinine 5.9, glucose 116. Calcium 13, albumin 2.6, phosphorus 3.7. ASSESSMENT AND PLAN: 1. Acute hypoxemic respiratory failure, status post extubation. The patient is currently on IV antibiotics for pneumonia. Will continue with bronchodilator therapy, as well as supplemental oxygen. ID is following. 2. Atrial fibrillation with rapid ventricular response. Continue on the Cardizem drip. 3. Bilateral lower lobe pneumonia. Continue on IV antibiotic therapy plus bronchodilator therapy and supplemental oxygen. 4. Volume overload. The patient is too unstable to undergo dialysis today, as per Dr. Posadas. 5. Anoxic brain injury. Unchanged. 6. Hypercalcemia. This appears to be worsening. We will continue to monitor this closely. 7. End-stage renal disease. The patient will not undergo dialysis today due to her hemodynamic instability. 8. Severe anemia. The patient did receive 1 unit of packed red blood cells yesterday. We will continue to monitor the patient's hemoglobin and hematocrit closely. 9. Gastrointestinal prophylaxis. Continue on IV Protonix. 10. Deep vein thrombosis prophylaxis. Continue with SCDs. The patient remains critically ill with a high risk of mortality.
[2016-05-29] MEDS: MUCOMYST 20% INH SCH ×2 (07:21→19:22)
[2016-05-29 07:40] LABS: BANDS 7 % (0-1); LYMPHS 6 % (21-51); MONO 3 % (1-9)
[2016-05-29 07:41] LABS: LARGE PLATELETS 1+
--- NOTE | 2016-05-29 08:07 | Diag Imaging Result Document ---
PROCEDURE NAME: CHEST-PORTABLE - 05/29/2016 PORTABLE CHEST X-RAY: COMPARISON: 05/28/2016. FINDINGS: Stable nasogastric tube in good position. Stable cardiomegaly. There is slight worsening ill-defined infiltrates bilaterally as well as pulmonary vascular congestion. Stable oblong opacity in the right lung base, indeterminate. The smooth contours indicates this is likely a pleural fluid collection. IMPRESSION: Slight worsening in the background interstitial pulmonary edema.
[2016-05-29] MEDS ORDERED: NS 2,000 ML ONE (08:19)
[2016-05-29] MEDS ORDERED: HEPARIN ONE (08:19)
[2016-05-29] MEDS: PROTONIX IV SCH (08:26)
[2016-05-29] MEDS: SODIUM CHLORIDE 0.9% INJ SCH (08:26)
[2016-05-29] MEDS: TEARISOL OPH SOLUTION OPH SCH ×4 (09:28→21:19)
[2016-05-29] MEDS ORDERED: CORDARONE IV ONE (10:22)
[2016-05-29] MEDS: CORDARONE 360 MG/D5W 200 ML IV SCH ×2 (11:01→21:43)
[2016-05-29] MEDS: NS NEB INH SCH (11:45)
[2016-05-29] MEDS: TYLENOL PR PRN (12:20)
[2016-05-29] MEDS: LACRI-LUBE OPH OINT OPH PRN (13:15)
--- NOTE | 2016-05-29 14:26 | PROGRESS NOTE ---
DATE: 05/29/2016 TIME SEEN: 0800. SUBJECTIVE: Ms. Murray is resting quietly in bed. She remains unchanged neurologically, unable to focus, no verbal. OBJECTIVE: Vital signs: Her most recent vital signs, temperature 97.6 degrees , blood pressure 119/63, heart rate 88, respirations 24. She is on 100% non-rebreather. Last recorded saturation is 96%. She has had 3352 in. She has had 2.2 L pulled on hemodialysis yesterday per SLED. Labs: Sodium 139, potassium 4.3, chloride 98, CO2 25, BUN 48, creatinine 4.3, glucose 127, anion gap 16, calcium 13.8, phosphorus 3.9, albumin 3.1. White count 15.55, hemoglobin 8.2, hematocrit 23.7, with a platelet count of a 187,000. Her PTT is 45.8. ABGs, pH 7.43, CO2 42, PO2 81, bicarb 27.4 on 100% non-rebreather. PHYSICAL EXAMINATION: General: This is a 66-year-old female. She is resting quietly in bed. She is in no acute distress. Skin: Warm and dry. HEENT: Normocephalic, atraumatic. Conjunctivae pale. Mucous membranes are dry. Neck: Supple. Trachea midline. No JVD. Cardiovascular: Irregular rate and rhythm. She remains tachycardic. She has a positive systolic murmur. Lungs: Clear to auscultation anterior. She has diffuse crackles and rhonchi audible posterior. She remains on O2. Equal excursion. Abdomen: Round, soft , nontender. Positive bowel sounds. Extremities: Fistula to the right upper arm remains dry and intact. She has 3+ lower extremity edema. Right upper arm is greater than left upper arm to 4+ tight. Integumentary: No rashes or lesions evident. Neurological: As mentioned. ASSESSMENT AND PLAN: 1. End-stage renal disease. Patient did not tolerate her dialysis well yesterday. We were only able to dialyze for a short period of time. We were only able to pull 2.2 L off, mostly ultrafiltration instead of hemodialysis. We will attempt to place patient on a SLED today with no UF for the 1st 1-2 hours. At that point, as tolerated we will attempt to increase her filtration to 500 mL every hour and go up as tolerated to only 1 L/h if this is tolerated well. Otherwise patient is to be placed on a 4 K bath. We will place her on a 2 calcium, leave her on a 27 sodium bicarbonate, and dialyze for 8 hours. 2. Electrolytes. Patient has had correction of her hyperkalemia on dialysis yesterday. 3. Hypercalcemia. Again, this is significant rise in the last 48 hours, more likely due to immobilization. Again, patient will be placed on a 2 calcium bath today with assistance for her elevated calcium. 4. Anemia. This remains low but stable. I would like to thank you for allowing us to follow with this patient. Seen, data reviewed, discussed with Julianne Kearney on 05/29/16. I agree with the above assessment and plan of care. rg Dictated by DIPESH Aguilar for Grey Posadas MD MTDD
--- NOTE | 2016-05-29 14:52 | PROGRESS NOTE ---
DATE: 05/29/2016 SUBJECTIVE: The patient is remains unresponsive. She was noted to have high residuals so her tube feeds were stopped today. She is currently on an amiodarone drip. OBJECTIVE: Vital Signs: Temperature 98.7 degrees, blood pressure 105/64, heart rate 88, respirations 16, O2 saturations 97% on a mask. General: This is a chronically ill-appearing, elderly female, lying in bed. Head: Normocephalic, atraumatic. Heart: S1, S2. Normal. Lungs: Coarse breath sounds bilaterally with rhonchi throughout and crackles. Abdomen : Hypoactive bowel sounds. Soft, nontender. Extremities: The patient has anasarca involving the upper extremities. Trace edema in the lower extremities. Neurologic: The patient is unresponsive. LABS: White blood cell count 15, hemoglobin 8.2, hematocrit 23, platelets 187, 000. Sodium 139, potassium 4.3, chloride 98, CO2 25, BUN 48, creatinine 4.3, calcium 13.8, glucose 127, albumin 3.1. ASSESSMENT AND PLAN: 1. Acute hypoxemic respiratory failure status post extubation. Continue with pulmonary toiletry, bronchodilator therapy, and IV antibiotics. 2. Pneumonia. Continue on the current IV antibiotic regimen as directed by Dr. Lafleur. 3. Atrial fibrillation. The patient is on an amiodarone drip. Cardiology is following. 4. Volume overload. This will be addressed during dialysis. 5. Anoxic brain injury. Unchanged. 6. Hypercalcemia. Management as per the dowel sticker operator. 7. End-stage renal disease. The patient is undergoing dialysis today. 8. Anemia. The patient's hemoglobin and hematocrit are slightly improved after receiving blood. We will continue to monitor this closely. 9. Gastrointestinal prophylaxis. Continue on IV Protonix. 10. Leukocytosis. Continue on IV antibiotic therapy. We will monitor the white count closely. 11. The patient remains critically ill. I updated the patient's daughter and son about the patient's current condition today. [facility]
[2016-05-29] MEDS: ATIVAN IV PRN (15:17)
[2016-05-29] MEDS: KEPPRA 750 MG in NS 100 ML IV SCH (16:43)
[2016-05-29] MEDS: MERREM 500 MG in NS 50 ML IV SCH (17:14)
[2016-05-29] MEDS: NEO-SYNEPHRINE 100 MG in NS 500 ML IV SCH ×2 (17:29→23:16)
[2016-05-29] MEDS: DULCOLAX PR SCH (21:18)
[2016-05-30] MEDS: XOPENEX NEB INH SCH ×6 (03:32→23:05)
[2016-05-30] MEDS: CEREBYX IV SCH ×3 (03:51→20:09)
[2016-05-30 04:39] LABS: BE 6.9 mmoll (-3.0-3.0); BLOOD TYPE ARTERIAL; METHB 1.9 % (0.0-1.5); O2(CT) 8.8 mL/dL (15.0-23.0); PCO2(98.6) 48 mmHg (35-45); PO2(98.6) 88 mmHg (60-100); SAMPLE BLOOD; SAO2 99.5 % (95.0-100.0); THB 6.4 g/dL (11.5-17.4); pH(98.6) 7.43 (7.35-7.45)
[2016-05-30 04:40] LABS: MODALITY COOL AEROSOL
[2016-05-30] MEDS: CARDIZEM 100 MG/NS 100 ML IV SCH ×2 (05:41→18:54)
[2016-05-30] MEDS: REGLAN IV SCH ×3 (06:00→22:47)
[2016-05-30] MEDS: NEO-SYNEPHRINE 100 MG in NS 500 ML IV SCH ×3 (06:01→21:23)
[2016-05-30 06:47] LABS: BASO% 0.2 % (0.0-0.8); EOS# 0.07 X1000 (0.0-0.7); EOS% 0.4 % (0.0-10.0); HEMATOCRIT 23.6 % (37.0-47.0); HEMOGLOBIN 7.8 g/dL (12.0-16.0); IMM GRAN# 0.37 X1000 (0.0-0.04); IMM GRAN% 2.3 % (0.0-0.5); LYMPH# 0.86 X1000 (1.2-3.4); LYMPH% 5.4 % (20.5-51.1); MANUAL DIFF NEEDED? YES; MCH 31.2 PG (27-31); MCHC 33.1 g/dL (33-37); MCV 94.4 FL (81-99); MONO# 0.72 X1000 (0.11-0.59); MONO% 4.5 % (1.7-9.3); MPV 12.3 FL (7.4-10.4); NEUT% 87.2 % (42.2-75.2); PLT 204 X1000 (130-400)
[2016-05-30] MEDS: MORPHINE IV PRN (06:48)
[2016-05-30 06:55] LABS: ALBUMIN 2.3 g/dL (3.5-5.0); POTASSIUM 4.3 mmol/L (3.5-5.1)
[2016-05-30 07:21] LABS: BANDS 2 % (0-1); EOS 2 % (1-10); LYMPHS 6 % (21-51); MONO 4 % (1-9)
[2016-05-30 07:22] LABS: CALCIUM 12.4 mg/dL (8.8-10.2)
[2016-05-30] MEDS ORDERED: HEPARIN ONE (07:25)
[2016-05-30] MEDS ORDERED: NS 2,000 ML ONE (07:25)
[2016-05-30] MEDS: MUCOMYST 20% INH SCH ×2 (07:32→19:29)
--- NOTE | 2016-05-30 08:30 | Diag Imaging Result Document ---
PROCEDURE NAME: CHEST-PORTABLE - 05/30/2016 SINGLE FRONTAL RADIOGRAPH OF THE CHEST: COMPARISON: 05/29/2016. FINDINGS: An NG tube projects below the diaphragm and out of the field of view. There are persistent bibasilar infiltrates. The more dense infiltrate at the right lower lung zone is [id number] worsened. Otherwise, no new consolidations identified. Cardiac silhouette is stable. IMPRESSION: [id number] worsening of consolidation at the right lung base.
[2016-05-30] MEDS ORDERED: ALBUMIN 25% IV ONE (09:14)
[2016-05-30] MEDS ORDERED: ALBUMIN 25% ONE (09:18)
[2016-05-30] MEDS: CORDARONE 360 MG/D5W 200 ML IV SCH ×3 (09:32→22:48)
[2016-05-30] MEDS: TEARISOL OPH SOLUTION OPH SCH ×4 (10:31→20:17)
[2016-05-30] MEDS: PROTONIX IV SCH (10:32)
[2016-05-30] MEDS: SODIUM CHLORIDE 0.9% INJ SCH ×2 (10:32→12:57)
--- NOTE | 2016-05-30 11:18 | PROGRESS NOTE ---
DATE: 05/30/2016 DATE AND TIME: 05/30/2016 at 0730 hours. SUBJECTIVE: Ms Murray is resting quietly in bed. She remains neurologically unchanged. She is unable to focus, remains nonverbal, continues on face mask. OBJECTIVE: Her most recent vital signs: Previous temperature 97.1 degrees, blood pressure 105/56, heart rate 88, respirations 26. She remains on 100% face mask. Last recorded saturation is 99%. She has had 2670 in; she has had 1560 out, pulled on dialysis yesterday. LABS: Sodium 141, potassium 4.3, chloride 101, CO2 30. BUN 21, creatinine 2, glucose 125. Anion gap is 10, calcium is 12.4, phosphorus 3.3, albumin 2.3. White count 15.98, hemoglobin 7.8, hematocrit 23.6, with a platelet count of 204. PTT is 38.4 this morning. ABGs reveal pH 7.43, CO2 48, PO2 88, bicarbonate 30.3 on 100% cool aerosol mask. PHYSICAL EXAMINATION: General: This is a 66-year-old, female. She continues to rest quietly in bed. Head of the bed is elevated for respiratory assistance. She is in no acute distress, again unable to focus, remains nonverbal, no response. Skin: Warm and dry. HEENT: Normocephalic, atraumatic. Conjunctivae pale. Membranes are dry. Neck: Supple. Trachea midline. No JVD. Cardiovascular: Irregular rate and rhythm. She continues with a soft systolic murmur. Remains tachycardic on the monitor. Lungs: Clear to auscultation anterior with diffuse crackles and rhonchi audible posterior and remains on O2 equal excursion. Abdomen: Round, soft, nontender. Extremities: Fistula to the right upper arm; this is dry and intact. She has 2+ to 3+ lower extremity edema. She continues with 3+ to 4+ upper extremity edema with right arm greater than left arm. Integumentary: No rashes or lesions evident. Neurological: As mentioned above. ASSESSMENT AND PLAN: 1. End-stage renal disease. Again, we are unable to pull much off the patient for ultrafiltration. We will place her again on slow, low efficient daily dialysis. We will place her on a 4 K bath. She is to have a 2 calcium, 27 bicarbonate. We will leave her on for 8 hours. We will attempt to pull 2-3 L of ultrafiltration if tolerated. Otherwise, if not tolerated, we will decrease her filtration rate and just continue with hemofiltration. 2. Electrolytes. Patient continues with hypercalcemia. Again, with correction on dialysis today this is slightly improved. 3. Acid-base balance. This remains stable with dialysis assistance. 4. Anemia. This remains low, but stable. I would like to thank you for allowing us to follow with this patient. Seen, data reviewes, discussed with Julianne Kearney on 05/30/16. I agree with the above assessment and plan of care. Dictated by DIPESH Aguilar for Grey Posadas MD [facility]
--- NOTE | 2016-05-30 12:28 | PROGRESS NOTE ---
DATE: 05/30/2016 SUBJECTIVE: The patient remains unresponsive. She is currently on an amiodarone drip and on Haim- Synephrine at this time. No acute events noted overnight. OBJECTIVE: Vital Signs: Temperature 98 degrees, blood pressure 114/52, heart rate 89, respirations 22, O2 saturation is 99% on a cool aerosol mask. General: This is a chronically ill- appearing elderly female lying in bed in no acute distress. Head: Normocephalic. Atraumatic. Heart: S1, S2. Normal. Regular rate and rhythm. Lungs: Coarse breath sounds with rhonchi and crackles. Abdomen: Hypoactive bowel sounds. Soft, nontender, nondistended. Extremities: The patient has anasarca involving the upper extremities and +1 edema in the lower extremities. Neurologic: The patient is unresponsive. LABORATORIES: White blood cell count 15, hemoglobin 7.8, hematocrit 23, platelets 204,000. Sodium 141, potassium 4.3, chloride 91, CO2 of 30, BUN 21, creatinine 2, glucose 125, calcium 12.4, phosphorus 3.3, albumin 2.3. ASSESSMENT AND PLAN: 1. Acute hypoxemic respiratory failure status post extubation. The patient is currently on a cool aerosol mask. Continue with pulmonary toiletry, bronchodilator therapy , and IV antibiotics. 2. Bilateral lobe pneumonia. Continue on the current IV antibiotic regimen as directed by Dr. Lafleur. 3. Atrial fibrillation. The patient is currently on an amiodarone drip. Cardiology is following. 4. Volume overload. Management as per the apparel sales leader during dialysis. 5. Anoxic brain injury. Unchanged. 6. Hypercalcemia. Slightly improved today. 7. End-stage renal disease. Management as per the apparel sales leader. 8. Anemia. The patient's hemoglobin and hematocrit have slightly dropped today. We will continue to monitor this closely and transfuse as necessary. 9. Leukocytosis. The patient's white blood cell count is unchanged today. Continue with IV antibiotic therapy. 10. Gastrointestinal prophylaxis. Continue on IV Protonix. 11. Deep vein thrombosis prophylaxis. Continue with SCDs. DISPOSITION: I met with Anup the patient's power of immigration attorney and discussed possible LTAC placement. They both agreed to meet with the LTAC international sales representative next week to discuss LTAC placement. A consult was placed with director social service to assist with this process. ROBERTA
[2016-05-30] MEDS: MERREM 500 MG in NS 50 ML IV SCH ×2 (12:57→16:15)
[2016-05-30] MEDS: TRANSDERM-SCOP TD SCH (12:59)
[2016-05-30] MEDS: KEPPRA 750 MG in NS 100 ML IV SCH (17:59)
[2016-05-30] MEDS: LEVAQUIN 250 MG/D5W 50 ML IV SCH (18:03)
--- NOTE | 2016-05-30 18:13 | PROGRESS NOTE ---
DATE: 05/30/2016 PRESENT ILLNESS: The patient has a bibasilar pneumonia. She is status post cardiac arrest and has anoxic encephalopathy. MEDICATIONS: The patient is receiving a combination of vancomycin and meropenem the doses of which are modified because the patient has end-stage renal disease. This is day 3 of meropenem and day 2 of vancomycin. PHYSICAL EXAMINATION: Vital Signs: Temperature is 99.1 degrees, pulse 97, respirations 29, blood pressure 109/63. General: This is an ill-appearing, elderly female. She is in no acute distress. Neurologic: The patient did not respond to verbal stimuli. Lungs: Clear to auscultation. Cardiovascular: Regular heart rate. Abdomen: Soft and nontender. Extremities: The patient's right arm is extremely large. The AV fistula is present in that arm. LAB AND X-RAY: Chest x-ray shows worse consolidation. Patient's CBC shows a white count of 15,980, hemoglobin 7.8 and platelet count 204,000. Blood gases show a pH of 7.43, a PO2 of 88, and a pCO2 of 48. Creatinine is 2. The GFR is 30. The sputum Gram stain shows gram-positive cocci and yeast. The culture is pending. ASSESSMENT AND PLAN: The patient has pneumonia. It may be worsening. I have added Levaquin pending culture results. COMORBIDITIES: Include end-stage renal disease and anoxic encephalopathy. The patient is on dialysis.
[2016-05-30] MEDS: DULCOLAX PR SCH (20:10)
[2016-05-31] MEDS: XOPENEX NEB INH SCH ×6 (03:24→23:56)
[2016-05-31] MEDS: CEREBYX IV SCH ×3 (03:29→20:32)
[2016-05-31] MEDS: NEO-SYNEPHRINE 100 MG in NS 500 ML IV SCH (03:31)
[2016-05-31 05:47] LABS: ALLEN TEST YES; BE 0.7 mmoll (-3.0-3.0); BLOOD TYPE ARTERIAL; DRAW SITE R RADIAL; METHB 2.1 % (0.0-1.5); O2(CT) 11.2 mL/dL (15.0-23.0); PCO2(98.6) 44 mmHg (35-45); PO2(98.6) 116 mmHg (60-100); SAMPLE BLOOD; SAO2 99.2 % (95.0-100.0); THB 8.1 g/dL (11.5-17.4); pH(98.6) 7.38 (7.35-7.45)
[2016-05-31 05:48] LABS: MODALITY COOL AEROSOL
[2016-05-31 05:54] LABS: BASO% 0.4 % (0.0-0.8); EOS# 0.08 X1000 (0.0-0.7); EOS% 0.5 % (0.0-10.0); HEMATOCRIT 22.8 % (37.0-47.0); HEMOGLOBIN 7.8 g/dL (12.0-16.0); IMM GRAN% 2.4 % (0.0-0.5); LYMPH# 0.79 X1000 (1.2-3.4); LYMPH% 4.8 % (20.5-51.1); MANUAL DIFF NEEDED? YES; MCH 32.1 PG (27-31); MCHC 34.2 g/dL (33-37); MCV 93.8 FL (81-99); MONO# 0.87 X1000 (0.11-0.59); MONO% 5.2 % (1.7-9.3); MPV 12.1 FL (7.4-10.4); NEUT% 86.7 % (42.2-75.2); PLT 204 X1000 (130-400); RBC 2.43 XMIL (4.2-5.4)
[2016-05-31] MEDS: REGLAN IV SCH (06:23)
[2016-05-31 06:45] LABS: ALBUMIN 2.3 g/dL (3.5-5.0); POTASSIUM 4.2 mmol/L (3.5-5.1)
[2016-05-31 07:04] LABS: BANDS 8 % (0-1); LYMPHS 4 % (21-51); MONO 6 % (1-9)
[2016-05-31 07:42] LABS: CALCIUM 13.8 mg/dL (8.8-10.2)
[2016-05-31] MEDS: TEARISOL OPH SOLUTION OPH SCH ×4 (08:04→20:02)
[2016-05-31] MEDS: PROTONIX IV SCH (08:04)
[2016-05-31] MEDS: SODIUM CHLORIDE 0.9% INJ SCH (08:04)
--- NOTE | 2016-05-31 08:08 | Diag Imaging Result Document ---
PROCEDURE NAME: CHEST-PORTABLE - 05/31/2016 PORTABLE CHEST: COMPARISON: 05/30/2016. The nasogastric tube has been withdrawn to the distal esophagus. There is stable mild cardiomegaly. There has been mild decrease in basilar infiltrates. There are residual basilar infiltrates, most prominent on the right. There is no substantial pleural effusion or pneumothorax identified. IMPRESSION: Interval withdrawal of nasogastric tube to distal esophagus. Mild decrease in basilar infiltrates. [facility]
[2016-05-31] MEDS: MUCOMYST 20% INH SCH ×2 (08:28→23:55)
[2016-05-31] MEDS: CORDARONE 360 MG/D5W 200 ML IV SCH ×2 (09:41→20:00)
[2016-05-31] MEDS: MERREM 500 MG in NS 50 ML IV SCH (13:08)
[2016-05-31] MEDS ORDERED: HEPARIN ONE (13:41)
[2016-05-31] MEDS ORDERED: NS 2,000 ML ONE (13:41)
[2016-05-31] MEDS: CARDIZEM 100 MG/NS 100 ML IV SCH (14:20)
--- NOTE | 2016-05-31 16:02 | PROGRESS NOTE ---
DATE: 05/31/2016 SUBJECTIVE: The patient appears to have increased work of breathing this morning. She remains unresponsive. She is currently on an amiodarone drip. OBJECTIVE: Vital Signs: Temperature 98.7 degrees, blood pressure 115/61, heart rate 79, respirations 26, O2 saturations 96% on a cool aerosol mask. General: This is a chronically ill- appearing, elderly female, lying in bed, in mild distress. Head: Normocephalic, atraumatic. Heart: S1, S2. Normal. Irregularly irregular rhythm. Lungs: Coarse breath sounds with rhonchi and crackles bilaterally. Abdomen: Hypoactive bowel sounds. Soft, nontender, nondistended. Extremities: Anasarca involving the upper extremities. +1 edema in the lower extremities. Neurologic: The patient is unresponsive. LABS: White blood cell count 16, hemoglobin 7.8, hematocrit 22, platelets 204, 000. ABG pH is 7.38, pCO2 44, PO2 116, bicarb 25, sodium 138, potassium 4.2, chloride 102, CO2 22, BUN 20, creatinine 1.7, glucose 110, calcium 13.8, albumin 2.3. ASSESSMENT AND PLAN: 1. Acute hypoxemic respiratory failure status post extubation. The patient's work of breathing has increased slowly over the course of the last several days. She remains on bronchodilator therapy and IV antibiotics. The patient's family do not wish to have the patient intubated if she decompensates. 2. Bilateral lobe pneumonia. Continue on IV antibiotics, bronchodilator therapy , and pulmonary toiletry. 3. Atrial fibrillation. The patient is currently on an amiodarone drip. Management as per the strip picker. 4. Volume overload. Management as per the petrol tanker driver during dialysis. 5. Anoxic brain injury. Unchanged. The patient remains unresponsive and doesn' t follow commands. 6. ESRD. Management as per the petrol tanker driver. 7. Hypercalcemia. The patient's calcium is increased again today. Will continue to monitor this closely. 8. Leukocytosis. The patient's white count is a little bit more elevated today at 16,000. We will continue on the IV antibiotic regimen as directed by Dr. Lafleur. 9. Anemia. The patient's hemoglobin and hematocrit are low but stable. 10. Severe protein calorie malnutrition. The patient was unable to tolerate tube feeds. She ended up with high residuals. Tube feeds are on hold at this time. 11. Gastrointestinal prophylaxis. Continue on IV Protonix. 12. Deep vein thrombosis prophylaxis. Continue with SCDs. 13. The patient is currently a DNR level 2. 14. Disposition. The patient's family have agreed to meet with the LTAC solar sales representative for possible LTAC placement this coming week. ROBERTA
[2016-05-31] MEDS ORDERED: NEOSPORIN OINTMENT TUBE TOP PRN (16:29)
--- NOTE | 2016-05-31 16:58 | PROGRESS NOTE ---
DATE: 05/31/2016 SUBJECTIVE: Ms. Murray is resting quietly in bed. Her head of the bed is elevated. She remains obtunded and is unable to communicate. Neurologically she is unchanged. OBJECTIVE: Her most recent vital signs, her temperature is 98.4 degrees, blood pressure 115/61, heart rate 78, respirations 26. She remains on 100% cool aerosol face mask. Last recorded saturation is 97%. She has had 2361 in. She has had 2500 out on dialysis yesterday. LABORATORY DATA: Her labs this a.m., sodium 138, potassium 4.2, chloride 102, CO2 22. BUN 20, creatinine 1.7, glucose 110. Her anion gap is 14. Calcium is 13.8, phosphorus 4.1, albumin 2.3. Hemoglobin 7.8, hematocrit 22.8. Platelet count 204,000. Sputum culture has grown gram-negative rods. PHYSICAL EXAMINATION: General: This is a 66-year-old female. She is currently resting in bed. She is in no acute distress though she is using accessory muscles for her breathing. She remains on 100% cool aerosol. Mucous membranes moist. HEENT : Normocephalic, atraumatic. Conjunctivae pale. Her pupils are constricted. Her right is nonreactive. Left is 2 mm. Neck: Supple. Trachea midline. Positive JVD. Cardiovascular: Regular rate and rhythm. She has a soft systolic murmur. Lungs: Coarse rhonchi bilateral. These are audible without auscultation. Otherwise remains on cool aerosol. Abdomen: Large, round, soft , nontender. Positive bowel sounds. Genitourinary: Minimal void with hemodialysis assist. Extremities: Fistula to the right upper arm. This is dry and intact. No redness or drainage. Lower extremities have 2 to 3+ edema. Upper extremity right greater than left 4+, left has 3+. Diminished pulses to the right. Integumentary: No rashes or lesions evident. Neurological: As mentioned above. ASSESSMENT AND PLAN: 1. End-stage renal disease. Patient had 2.5 L pulled off on dialysis per [facility] yesterday. Secondary to her increased work of breathing we will place her on dialysis for 3-4 hours this afternoon. We will place her on a 4 K bath. She is to dialyze on a [address] her on a regular 27 bicarbonate drip. We will attempt to pull 1-2 L of ultrafiltration as tolerated per her blood pressure. Patient currently remains on Haim- Synephrine and amiodarone. 2. Electrolytes remain stable. 3. Acid-base balance. This remains stable with correction on dialysis. 4. Anemia. This remains low. No indications for intervention at this time. I would like to thank you for allowing us to follow with this patient. Data reviewed. i agree with the above assessment and plan of care. rg Dictated by DIPESH Aguilar for Grey Posadas MD [facility]
[2016-05-31] MEDS: KEPPRA 750 MG in NS 100 ML IV SCH (17:09)
[2016-05-31] MEDS: LEVAQUIN 250 MG/D5W 50 ML IV SCH (19:57)
[2016-05-31] MEDS: DULCOLAX PR SCH (20:02)
[2016-06-01] MEDS: CORDARONE 360 MG/D5W 200 ML IV SCH ×4 (01:16→22:39)
[2016-06-01] MEDS: NEO-SYNEPHRINE 100 MG in NS 500 ML IV SCH ×2 (01:16→20:28)
[2016-06-01] MEDS: XOPENEX NEB INH SCH ×6 (03:31→23:06)
[2016-06-01] MEDS: CEREBYX IV SCH ×3 (04:00→20:26)
[2016-06-01 06:21] LABS: BASO% 0.3 % (0.0-0.8); EOS# 0.18 X1000 (0.0-0.7); EOS% 1.1 % (0.0-10.0); HEMATOCRIT 21.7 % (37.0-47.0); HEMOGLOBIN 7.5 g/dL (12.0-16.0); IMM GRAN# 0.71 X1000 (0.0-0.04); IMM GRAN% 4.4 % (0.0-0.5); LYMPH# 0.88 X1000 (1.2-3.4); LYMPH% 5.5 % (20.5-51.1); MANUAL DIFF NEEDED? YES; MCH 31.4 PG (27-31); MCHC 34.6 g/dL (33-37); MCV 90.8 FL (81-99); MONO# 0.71 X1000 (0.11-0.59); MONO% 4.4 % (1.7-9.3); MPV 11.7 FL (7.4-10.4); NEUT% 84.3 % (42.2-75.2); PLT 223 X1000 (130-400); RBC 2.39 XMIL (4.2-5.4)
[2016-06-01 06:43] LABS: ALBUMIN 2.3 g/dL (3.5-5.0); CALCIUM 11.8 mg/dL (8.8-10.2); POTASSIUM 4.1 mmol/L (3.5-5.1)
[2016-06-01] MEDS: MUCOMYST 20% INH SCH ×2 (07:11→19:44)
[2016-06-01 07:26] LABS: BANDS 1 % (0-1); EOS 1 % (1-10); LYMPHS 4 % (21-51); MONO 5 % (1-9); NRBC 1 % (0-0); POLYCHROM OCCASIONAL; TARGET CELLS OCCASIONAL
--- NOTE | 2016-06-01 07:37 | Diag Imaging Result Document ---
PROCEDURE NAME: CHEST-PORTABLE - 06/01/2016 PORTABLE CHEST: COMPARISON: Compared to 05/31/2016. FINDINGS: A nasogastric tube overlies the esophagus and stomach. There are dense infiltrates in the right base. These may be slightly less dense than on the prior exam. Mild increased interstitial markings throughout I believe represent mild pulmonary edema. No pleural effusions identified. There are surgical clips in the right axilla. IMPRESSION: Slight interval improvement.
[2016-06-01] MEDS: TEARISOL OPH SOLUTION OPH SCH ×4 (08:23→20:30)
[2016-06-01] MEDS: SODIUM CHLORIDE 0.9% INJ SCH (08:26)
[2016-06-01] MEDS: PROTONIX IV SCH (08:26)
[2016-06-01] MEDS: CARDIZEM 100 MG/NS 100 ML IV SCH (11:16)
--- NOTE | 2016-06-01 15:00 | PROGRESS NOTE ---
DATE: 06/01/2016 SUBJECTIVE: The patient is currently on Haim-Synephrine and amiodarone drip. No acute events noted overnight. The patient is currently on a aerosol face mask. OBJECTIVE: Vital Signs: Temperature 99 degrees, blood pressure 116/62, heart rate 81, respirations 30, O2 saturations 97% on face mask. General: This is a chronically ill- appearing elderly female lying in bed in no acute distress. Head: Normocephalic, atraumatic. Heart: S1, S2. Normal. Regular rate and rhythm. Lungs: Coarse breath sounds with rhonchi and crackles bilaterally. Abdomen: Hypoactive bowel sounds. Soft, nontender, nondistended. Extremities: The patient does have anasarca involving the upper extremities and +1 edema in the lower extremities. Neurologic: The patient is unresponsive. LABS: 1. White blood cell count 16, hemoglobin 7.5, hematocrit 21, platelets 223,000. Sodium 140, potassium 4.1, chloride 99, CO2 29, BUN 17, creatinine 1.7, glucose 100, calcium 11.8, albumin 2.3. Chest x-ray shows slight interval improvement. The patient does have interstitial markings in all lung aguilera. 2. Sputum culture is growing Pseudomonas. ASSESSMENT AND PLAN: 1. Acute hypoxemic respiratory failure status post extubation. Will continue with treatment for the patient's pneumonia and continue with pulmonary toiletry plus bronchodilator therapy. 2. Pseudomonas pneumonia. The patient is on IV Levaquin that is sensitive to Pseudomonas. Will defer to Dr. Lafleur regarding any antibiotic changes. Continue with bronchodilator therapy and pulmonary toiletry. 3. Atrial fibrillation. Continue on amiodarone drip as ordered by the cops. 4. Volume overload. This is being addressed during the patient's dialysis sessions. 5. Anoxic brain injury. The patient remains unresponsive and does not follow commands. 6. Leukocytosis. The patient's white blood cell count remains elevated at 16, 000. Continue on IV antibiotic therapy. 7. End-stage renal disease. Management as per the cotton grower. 8. Hypercalcemia. Improved. 9. Anemia. The patient's hemoglobin and hematocrit were a little bit lower today. We will just monitor today. 10. Severe protein calorie malnutrition. The patient is unable to tolerate tube feeds. 11. Gastrointestinal prophylaxis. Continue on IV Protonix. 12. Deep vein thrombosis prophylaxis. Continue with SCDs. 13. The patient is a do not resuscitate level 2. 14. Disposition. The patient's family will be meeting with the long-term acute care sales representative [employer] this week to discuss LTAC placement. ROBERTA
[2016-06-01] MEDS: MERREM 500 MG in NS 50 ML IV SCH (16:09)
[2016-06-01] MEDS: KEPPRA 750 MG in NS 100 ML IV SCH (17:34)
[2016-06-01] MEDS: LEVAQUIN 250 MG/D5W 50 ML IV SCH (17:37)
--- NOTE | 2016-06-01 19:22 | PROGRESS NOTE ---
DATE: 06/01/2016 SUBJECTIVE: Ms Murray remains quiet in bed. She is on a cool aerosol mask. She remains obtunded. Her eyes are open though she does not respond or recognize. There is no blink. OBJECTIVE: Her most recent vital signs, her temperature 97.9 degrees, blood pressure 91/54, heart rate 83, respirations are 26, she remains on cool aerosol. Last recorded saturation 100%. She has had 1712 in. She has had 1500 out per dialysis per [facility] yesterday. LABS: This a.m. sodium 140, potassium 4.1, chloride 99, CO2 29, BUN 17, creatinine 1.7, glucose 100, anion gap 12, calcium 11.8, phosphorus 3.8, albumin 2.3. White count 16.03 , hemoglobin 7.5, hematocrit 21.7, platelet count 223,000. PHYSICAL EXAMINATION: General: This is a 66-year-old female. She is resting quietly in bed. She is in no acute distress. She is breathing just slightly better. Head of the bed is elevated. She remains on 100% cool aerosol. Mucous membranes are moist. Neck: Supple. Trachea midline. No JVD. HEENT: Normocephalic, atraumatic. Conjunctivae pale. Her pupils are constricted. Right remains mostly nonreactive. Left is sluggish. Cardiovascular: Regular rate and rhythm. She has a soft systolic murmur. Lungs: Coarse rhonchi. These are actually improved after suctioning today with encouragement to have this done once a shift. Abdomen: Large, round, soft, nontender. Genitourinary: Not inspected. Dialysis assist. Extremities: Fistula to the right upper arm. This is dry and intact without drainage. Lower extremities have 2+ lower extremity edema. Upper extremities 4+ on the right, 3+ on the left. Diminished pulses lower extremities. Diminished pulse to the right wrist. Integumentary: No rashes or lesions evident. Neurological: As mentioned above. ASSESSMENT AND PLAN: 1. End-stage renal disease. Patient is due for dialysis in the a.m. We will place her on [facility]. She has had an improvement in her calcium. Again we will address this in the morning. Bicarbonate remains stable. 2. Electrolytes and acid-base balance. These are slowly correcting. 3. Anemia. This remains low. It has slowly been dropping. No need for intervention at this time. Will reevaluate in the morning. I would like to thank you for allowing us to follow with this patient. Data reviewed, discussed with Julianne Kearney on 06/01/16. I agree with the above assessment and plan of care. rg Dictated by DIPESH Aguilar for Grey Posadas MD [facility]
[2016-06-01] MEDS: LACRI-LUBE OPH OINT OPH PRN (20:27)
[2016-06-01] MEDS: DULCOLAX PR SCH (20:27)
[2016-06-02] MEDS: XOPENEX NEB INH SCH ×6 (03:34→23:45)
[2016-06-02] MEDS: CEREBYX IV SCH ×3 (03:47→22:03)
[2016-06-02 05:16] LABS: ALLEN TEST YES; BE 3.6 mmoll (-3.0-3.0); BLOOD TYPE ARTERIAL; DRAW SITE R RADIAL; METHB 1.8 % (0.0-1.5); O2(CT) 10.2 mL/dL (15.0-23.0); PCO2(98.6) 44 mmHg (35-45); PO2(98.6) 94 mmHg (60-100); SAMPLE BLOOD; THB 7.4 g/dL (11.5-17.4); pH(98.6) 7.42 (7.35-7.45)
[2016-06-02 05:17] LABS: MODALITY COOL AEROSOL
[2016-06-02] MEDS: CARDIZEM 100 MG/NS 100 ML IV SCH (07:09)
[2016-06-02] MEDS ORDERED: HEPARIN ONE (07:13)
[2016-06-02] MEDS ORDERED: NS 2,000 ML ONE (07:13)
[2016-06-02] MEDS ORDERED: MAXIPIME 1 GM/NS 50 ML IV SCH (07:45)
--- NOTE | 2016-06-02 08:02 | PROGRESS NOTE ---
DATE: 06/02/2016 PRESENT ILLNESS: The patient has a bibasilar pneumonia. She is status post cardiac arrest and has anoxic encephalopathy. The patient is not intubated. She does seem to have an element of respiratory distress. MEDICATIONS: The patient is receiving a combination of vancomycin and meropenem. This is day 6 of meropenem and day 5 of vancomycin. PHYSICAL EXAMINATION: Vital Signs: Temperature is 98 degrees, pulse 77, respirations 25, blood pressure 110/62. General: This is an ill-appearing, elderly female. She is in no acute distress. Neurologic: The patient did not respond to verbal stimuli. Lungs: As mentioned above, patient seemed to have some respiratory distress. She has expiratory wheezes and rhonchi. Cardiovascular: Heart rate is regular. Abdomen: Soft and nontender. Ear/nose/throat: No drainage was noted from the nose or ears. Extremities: The patient has an AV fistula in the right arm and it is very swollen. LAB AND X-RAY: Patient's sputum grew Pseudomonas aeruginosa. Her CBC today shows a white count of 16,030, hemoglobin 7.5, and platelet count 223,000. Blood gases show a pH of 7.42, a PO2 of 94, and a pCO2 of 44. Creatinine is 1.7 GFR is 36. Chest x-ray shows improvement in the infiltrate. ASSESSMENT AND PLAN: Patient has Pseudomonas pneumonia. We plan to treat it with combination therapy of Levaquin and cefepime. The patient's comorbidities include end-stage renal disease, hemodialysis, and anoxic encephalopathy.
[2016-06-02] MEDS: MUCOMYST 20% INH SCH ×2 (08:12→19:46)
[2016-06-02] MEDS: NS NEB INH SCH ×2 (08:12→16:05)
[2016-06-02 08:20] LABS: ALBUMIN 2.2 g/dL (3.5-5.0); BASO% 0.3 % (0.0-0.8); CALCIUM 11.2 mg/dL (8.8-10.2); EOS% 1.8 % (0.0-10.0); HEMOGLOBIN 7.5 g/dL (12.0-16.0); IMM GRAN# 0.63 X1000 (0.0-0.04); IMM GRAN% 3.9 % (0.0-0.5); LYMPH# 0.83 X1000 (1.2-3.4); LYMPH% 5.1 % (20.5-51.1); MANUAL DIFF NEEDED? YES; MCH 30.6 PG (27-31); MCHC 34.1 g/dL (33-37); MCV 89.8 FL (81-99); MONO# 0.66 X1000 (0.11-0.59); MPV 11.8 FL (7.4-10.4); NEUT% 84.9 % (42.2-75.2); PLT 248 X1000 (130-400); POTASSIUM 4.4 mmol/L (3.5-5.1); RBC 2.45 XMIL (4.2-5.4)
--- NOTE | 2016-06-02 08:40 | PROGRESS NOTE ---
DATE: 06/02/2016 SUBJECTIVE: Ms. Murray is resting quietly in bed. Eyes are open. She is blinking. She has cool aerosol mask intact, no focus. OBJECTIVE: Vital Signs: Her most recent vital signs are temperature is 98.2 degrees, blood pressure 129/67, heart rate 80, respirations 26. She remains on a 60% cool aerosol mask. Last recorded saturation is 100%. She has had 716 in. She has had 0 out. Diagnostic Data: Labs are currently pending. Blood cultures x5 days are negative. Her pH is 7.42, CO2 44, PO2 94, bicarb 27.7. Again, daily labs are pending. Physical Examination: General: This is a 66-year-old, female. She is resting quietly in bed with no acute distress. Her breathing is less labored. No audible rhonchi. Skin: Warm and dry. HEENT: Normocephalic, atraumatic. Conjunctivae are pale. Right pupil is slightly more reactive today. Left is 2 mm. She remains with arcus senilis. Cool aerosol mask remains on. Mucous membranes are moist. Neck: Supple. Trachea midline. No JVD. Cardiovascular: Regular rate and rhythm. Soft murmur continues. Lungs: Coarse rhonchi. This is slightly improved. Family has requested pulmonary toiletry each shift with suctioning noted. Equal excursion. Abdomen: Large, round, soft, nontender. Extremities: Fistula to the right upper arm. Right upper arm remains 4+, left arm has 3+. AV fistula to the right upper arm. This is intact. Lower extremities, no edema, no clubbing or cyanosis. Questionable spontaneous movement to the left leg. Right leg remains mostly flaccid. Diminished pulses palpable. Integumentary: No rashes or lesions evident. Genitourinary: Not inspected. Patient has minimal void on a normal basis with dialysis assist. Neurological: As mentioned above. ASSESSMENT AND PLAN: 1. End-stage renal disease. Patient is due for dialysis today. We will place her on sustained low-efficiency dialysis. She is to be on a 4 K bath. She is to have a 2.5 calcium. We will leave her on a 27 bicarbonate. We will attempt to pull 2-3 L of ultrafiltration as indicated. 2. Electrolytes and acid-base balance. These are currently pending. These have been slowly correcting with a calcium level of 11.8 yesterday, again with correction on dialysis. 3. Anemia. This is currently pending. Previous hemoglobin 7.5. We will defer to the primary care team after they come in today since there is nothing up at this time. 4. Rehabilitation. Patient's family states that they are agreeable to continuing to pursue rehabilitation at either a long-term acute care or [facility]. They think that somebody will be coming in from one or two of those facilities today to discuss possible acceptance and transfer. I would to thank you for allowing us to follow with this patient. Data reviewed, discussed with Julianne Kearney on 06/02/16. I agree with the above assessment and plan of care. rg Dictated by DIPESH Aguilar for Grey Posadas MD [facility]
[2016-06-02] MEDS: TEARISOL OPH SOLUTION OPH SCH ×4 (09:00→20:09)
[2016-06-02] MEDS: CORDARONE 360 MG/D5W 200 ML IV SCH ×3 (09:03→21:32)
--- NOTE | 2016-06-02 09:09 | Diag Imaging Result Document ---
PROCEDURE NAME: CHEST-PORTABLE - 06/02/2016 PORTABLE CHEST X-RAY, 06/02/2016: COMPARISON: 06/01/2016. FINDINGS: Stable nasogastric tube. Stable cardiomegaly. Stable bibasilar infiltrates. IMPRESSION: No change from prior.
[2016-06-02 09:46] LABS: BANDS 7 % (0-1); EOS 1 % (1-10); LYMPHS 3 % (21-51); MONO 4 % (1-9); NRBC 1 % (0-0)
[2016-06-02 09:47] LABS: HYPOCHROM 1+
--- NOTE | 2016-06-02 12:23 | PROGRESS NOTE ---
DATE: 06/02/2016 SUBJECTIVE: The patient has no focal complaints. OBJECTIVE: Vital signs: Blood pressure 124/57, heart rate of 85, respiratory 18, temperature 97.6 degrees, 97% on 60%. Cardiovascular: Regular rate and rhythm. Pulmonary: Bilateral breath sounds. Rhonchi diffusely. GI: Soft, nontender, nondistended. PROBLEM LIST: 1. Acute on chronic respiratory failure. She is still on oxygen but weaning slowly. She is on bronchodilators. Pulmonary is following. 2. Pseudomonas pneumonia. She is on Levaquin and cefepime. 3. Atrial fibrillation. She is on amiodarone with a Haim-Synephrine drip. 4. Anoxic injury with seizures. She is on Cerebyx and Keppra. Appears to be stable. 5. Hypercalcemia, persistent. I am not sure what that has been associated with. She has had a PTH level which was high. I guess she has some degree of hyperparathyroidism. 6. Leukocytosis has persisted. 7. Anemia. She is still at a fairly low dose. Is fairly low level, 7.5 and 22. It has been stable. There is no gross evidence of bleeding, although I think we can probably check for that. 8. Disposition. Plan is to pursue LTAC when stable.
[2016-06-02] MEDS: TRANSDERM-SCOP TD SCH (14:01)
[2016-06-02] MEDS: NEO-SYNEPHRINE 100 MG in NS 500 ML IV SCH (14:32)
[2016-06-02] MEDS: KEPPRA 750 MG in NS 100 ML IV SCH (16:50)
[2016-06-02] MEDS: PROTONIX IV SCH (16:50)
[2016-06-02] MEDS: LEVAQUIN 250 MG/D5W 50 ML IV SCH (16:59)
[2016-06-02] MEDS: DULCOLAX PR SCH (23:50)
[2016-06-03] MEDS: XOPENEX NEB INH SCH ×6 (03:00→23:15)
[2016-06-03] MEDS: NEO-SYNEPHRINE 100 MG in NS 500 ML IV SCH ×2 (04:50→21:32)
[2016-06-03] MEDS: CEREBYX IV SCH ×3 (04:52→21:34)
[2016-06-03 07:18] LABS: BASO% 0.2 % (0.0-0.8); EOS# 0.08 X1000 (0.0-0.7); EOS% 0.4 % (0.0-10.0); HEMATOCRIT 21.6 % (37.0-47.0); HEMOGLOBIN 7.3 g/dL (12.0-16.0); IMM GRAN# 0.27 X1000 (0.0-0.04); IMM GRAN% 1.4 % (0.0-0.5); LYMPH# 0.93 X1000 (1.2-3.4); LYMPH% 4.8 % (20.5-51.1); MANUAL DIFF NEEDED? YES; MCH 30.5 PG (27-31); MCHC 33.8 g/dL (33-37); MCV 90.4 FL (81-99); MONO# 0.62 X1000 (0.11-0.59); MONO% 3.2 % (1.7-9.3); MPV 11.5 FL (7.4-10.4); PLT 242 X1000 (130-400); RBC 2.39 XMIL (4.2-5.4)
[2016-06-03 07:27] LABS: ALBUMIN 2.2 g/dL (3.5-5.0); CALCIUM 10.5 mg/dL (8.8-10.2); POTASSIUM 4.9 mmol/L (3.5-5.1)
[2016-06-03] MEDS: MUCOMYST 20% INH SCH ×2 (07:33→19:34)
[2016-06-03 08:10] LABS: BANDS 5 % (0-1); LYMPHS 10 % (21-51); MONO 3 % (1-9)
[2016-06-03 08:11] LABS: HYPOCHROM 1+; TARGET CELLS 1+
--- NOTE | 2016-06-03 08:11 | Diag Imaging Result Document ---
PROCEDURE NAME: CHEST-PORTABLE - 06/03/2016 SINGLE FRONTAL RADIOGRAPH OF THE CHEST: COMPARISON: 06/02/2016. FINDINGS: An NG tube projects below the diaphragm and out of the field of view. Bibasilar consolidations, worst on the right, are essentially stable. No new consolidation is identified. Cardiac silhouette is stable. IMPRESSION: Stable chest.
[2016-06-03] MEDS: PROTONIX IV SCH (08:20)
[2016-06-03] MEDS: SODIUM CHLORIDE 0.9% INJ SCH (08:20)
[2016-06-03] MEDS: TEARISOL OPH SOLUTION OPH SCH ×5 (08:20→21:35)
[2016-06-03] MEDS: CORDARONE 360 MG/D5W 200 ML IV SCH ×3 (09:04→21:31)
--- NOTE | 2016-06-03 15:06 | PROGRESS NOTE ---
DATE: 06/03/2016 SUBJECTIVE: Today, Ms. Murray continues to be stable. I understand she was evaluated by LTAC and hopefully they might get her in tomorrow. OBJECTIVE: Vital Signs: Stable. Blood pressure is 116/60, pulse of 79, respirations 21, temperature is 98.3. General: Ms. Murray is a 66-year-old, female. She is in bed. She is on Ventimask. Found pretty congested. Cardiovascular: Regular rate and rhythm. No murmurs. Extremities: No pedal edema. Patient has remarkably swollen right upper extremity. That is where she gets her dialysis and looks like she does pretty fine. UM NURSE: She is awake, but nonverbal and does not follow any commands. Does not seems like she has threat. DIAGNOSTIC STUDIES: A chest x-ray done this morning shows bibasilar consolidation, worse on the right. Essentially stable. CURRENT MEDICATIONS: 1. Levofloxacin. 2. Celebrex. 3. Ativan. 4. Amiodarone drip. 5. Levophed. ASSESSMENT: 1. Acute on chronic respiratory failure. 2. Pseudomonal pneumonia. 3. Atrial fibrillation, patient is currently on amiodarone. 4. Hypotension, patient is on phenylephrine. 5. Anoxic brain injury with seizures. The patient is on Celebrex and Keppra. 6. Anemia. Hemoglobin and hematocrit continues to have minimal drop. I think this is probably related to anemia of chronic kidney disease. 7. Right upper extremity swelling. However, patient seems to be tolerating her dialysis very well on that side so the central vein does not seems to have any issues. GENERAL PLAN: Patient has severe anoxic brain injury and has not recovered that much. She is going to continue with the current care and pending acceptance to LTAC hopefully by tomorrow.
--- NOTE | 2016-06-03 15:39 | PROGRESS NOTE ---
DATE: 06/03/2016 SUBJECTIVE: Ms. Murray is resting quietly in bed. She opens her eyes randomly but she has no focus. Unable to follow commands. OBJECTIVE: Her most recent vital signs: Temperature 98.4 degrees, blood pressure 125/75, heart rate 83, respirations 28. She remains on a cool aerosol mask. Last recorded saturation is 93%. She has had 1391 in. She has had 2600 out per dialysis. LABS: Sodium 143, potassium 4.9, chloride 105, CO2 25, BUN 17, creatinine 2.1, glucose 111, anion gap 13, calcium 10.5, phosphorus 3.6, albumin 2.2, white count 19.5, hemoglobin 7.3, hematocrit 21.6 with a platelet count of 242,000. PHYSICAL EXAMINATION: General: This is a 66-year-old, female. She is resting quietly in bed, in no acute distress. She continues to use accessory muscles. Skin: Warm and dry. HEENT: Normocephalic, atraumatic. Conjunctivae pale. Right pupil remains slightly larger than the left. She continues with arcus senilis. Cool aerosol mask remains in place. Mucous membranes are moist. Neck: Supple. Trachea midline. No JVD. Cardiovascular : Regular rate and rhythm. She has a soft murmur. Lungs: Coarse rhonchi improves after suctioning. Equal excursion on cool aerosol mask. Abdomen: Large, round, soft, nontender, positive bowel sounds. Extremities: Extremities have fistula to the right upper arm. This is dry and intact with good thrill. Right upper arm continues swollen at 4+. Left arm 2 to 3+. Lower extremities with no edema. No clubbing or cyanosis. Integumentary: No rashes or lesions evident. Some spontaneous movement to her left leg. Diminished pulses continue. Neurological: As above. ASSESSMENT AND PLAN: 1. End-stage renal disease. Patient is due for her dialysis in the a.m. We will plan to place her on [facility] for low efficient, low slow, low flow dialysis. 2. Electrolytes. Her calcium has continued to improve with correction on dialysis. 3. Acid-base balance. This remains stable. 4. Anemia. This remains low but stable. 5. Rehabilitation. This is per family and Primary Care team with possible LTEC referral. I would like to thank you for allowing us to follow with this patient. Data reviewed, discussed with Julianne Kearney on 06/03/16. I agree with the above assessment and plan of care. rg Dictated by DIPESH Aguilar for Grey Posadas MD [facility]
[2016-06-03] MEDS: KEPPRA 750 MG in NS 100 ML IV SCH (17:05)
[2016-06-03] MEDS: LEVAQUIN 250 MG/D5W 50 ML IV SCH (17:05)
[2016-06-03] MEDS: DULCOLAX PR SCH (21:35)
[2016-06-04] MEDS: XOPENEX NEB INH SCH ×6 (03:30→23:27)
[2016-06-04] MEDS: CEREBYX IV SCH ×3 (04:10→20:06)
[2016-06-04] MEDS ORDERED: NS 2,000 ML ONE (07:14)
[2016-06-04] MEDS ORDERED: HEPARIN ONE (07:15)
[2016-06-04] MEDS ORDERED: NS 500 ML IV ONE (07:31)
--- NOTE | 2016-06-04 07:47 | Diag Imaging Result Document ---
PROCEDURE NAME: CHEST-PORTABLE - 06/04/2016 PORTABLE CHEST X-RAY, 06/04/2016: COMPARISON: 06/03/2016. FINDINGS: Stable nasogastric tube in the stomach. There is severe worsening in infiltrate throughout the left mid lung and base. Stable dense infiltrate at the right lung base. Stable cardiomegaly. There are small to moderate pleural effusions. IMPRESSION: Severe worsening from prior.
[2016-06-04] MEDS: MUCOMYST 20% INH SCH ×2 (08:12→23:27)
[2016-06-04] MEDS: PROTONIX IV SCH (08:37)
[2016-06-04] MEDS: TEARISOL OPH SOLUTION OPH SCH ×4 (08:37→20:06)
[2016-06-04 09:03] LABS: BASO% 0.2 % (0.0-0.8); EOS# 0.18 X1000 (0.0-0.7); EOS% 1.3 % (0.0-10.0); HEMATOCRIT 21.4 % (37.0-47.0); HEMOGLOBIN 7.5 g/dL (12.0-16.0); IMM GRAN# 0.26 X1000 (0.0-0.04); IMM GRAN% 1.9 % (0.0-0.5); LYMPH# 0.71 X1000 (1.2-3.4); LYMPH% 5.1 % (20.5-51.1); MANUAL DIFF NEEDED? YES; MCH 30.6 PG (27-31); MCV 87.3 FL (81-99); MONO# 0.63 X1000 (0.11-0.59); MONO% 4.5 % (1.7-9.3); MPV 11.1 FL (7.4-10.4); PLT 266 X1000 (130-400); RBC 2.45 XMIL (4.2-5.4)
[2016-06-04 09:14] LABS: HYPOCHROM 2+; LYMPHS 6 % (21-51); MONO 4 % (1-9); TARGET CELLS 1+
[2016-06-04] MEDS: CORDARONE 360 MG/D5W 200 ML IV SCH ×2 (09:50→21:31)
[2016-06-04 10:05] LABS: ALBUMIN 2.2 g/dL (3.5-5.0); CALCIUM 10.2 mg/dL (8.8-10.2)
--- NOTE | 2016-06-04 15:14 | PROGRESS NOTE ---
DATE: 06/04/2016 TIME SEEN: 0740. SUBJECTIVE: Ms. Murray remains quiet in bed. She remains obtunded. She does not respond. Random movement to right lower extremity only. OBJECTIVE: Vital signs: Her most recent vital signs are temperature 96.6 degrees, blood pressure 117/69, heart rate 81, respirations are 27. She remains on 60% cool aerosol. Last recorded saturation is 99%. She has had 1161 in with 0 out with need for dialysis today. Physical Examination General: This is a 66-year-old female. She continues to rest in bed. She remains obtunded. Skin: Warm and dry. HEENT: Normocephalic, atraumatic. Conjunctivae pale. Her pupils are equal, they are nonreactive today. She continues with arcus senilis. Neck: Supple. Trachea midline. Trace JVD. Cardiovascular: Regular rate and rhythm with a systolic murmur present. Lungs: Have coarse rhonchi bilateral. Crackles continue to the bases. She remains on cool aerosol mask. Equal excursion. Abdomen: Large, round, soft, nontender. Positive bowel sounds. Genitourinary: Minimal void. None documented with dialysis assist. Extremities: A fistula to the right upper arm. This is dry and intact with good thrill. Right arm continues swollen to 4+. Left arm 2 to 3+. Lower extremities have no edema. No clubbing or cyanosis. Integumentary: As mentioned above without rashes or lesions evident. Neurological: As above. LABORATORY/IMAGING: Her most recent laboratory, sodium 141, potassium 5, chloride 103, CO2 23, BUN 32, creatinine 3.4, glucose 99. Her anion gap is 15. Calcium is 10.2, phosphorus 4.6, albumin 2.2. Her PTT is 45.2. White count 13.92, hemoglobin 7.5, hematocrit 21.4 with a platelet count of 266,000. Chest X-ray completed this a.m., severe worsening of infiltrates throughout left lung base with dense infiltrates in the right lung base. ASSESSMENT AND PLAN: 1. End-stage renal disease. Patient is due for her dialysis today. We will place her on a 4K bath. She is to dialyze on a 27 sodium bicarbonate. We will leave her on for 8 hours. We will attempt to pull 3-4 L of ultrafiltration as tolerated. Patient continues on Haim- Synephrine and amiodarone at this time. 2. Electrolytes. Her hypercalcemia is down to 10.2 today. Again, we will dialyze her on a 2.5 calcium bath. 3. Acid-base balance. This is stable. 4. Anemia. This remains low, but stable. She was 7.3 yesterday. We will transfuse 1 unit of packed red blood cells. 5. Family has discussed with the primary care team of transfer to LTAC for possible referral or rehab. Again primary care team is following this. I would to thank you for allowing us to follow with this patient. Seen, data reviewed, discussed with Julianne Kearney on 06/04/16. I agree with the above assessment and plan of care. rg Dictated by DIPESH Aguilar for Grey Posadas MD [facility]
--- NOTE | 2016-06-04 17:18 | PROGRESS NOTE ---
DATE: 06/04/2016 SUBJECTIVE: Ms. Murray continues to be nonresponsive. There are no acute complaints. We got a call from the LTAC in [place] and they are still waiting on a bed to accept her. OBJECTIVE: Vital signs: Blood pressure is 120/82, pulse of 94, respirations 22, temperature is 97.1 degrees. Physical exam is unchanged from yesterday. Lungs: Patient does have significantly more crackles in her lungs. BRAKE COUPLER DINKEY: She remains unresponsive. Eyes open. Does not track. Does not react to any verbal stimulation but will move the lower extremities mildly with painful stimulation. IMAGING: A chest x-ray done this morning shows severe worsening infiltrates throughout the left mid lung and base. Stable dense infiltrate in the right lung base, worsen from previous exams. LABORATORY DATA: Has been reviewed. Hemoglobin is 7.59. Chemistry is reviewed, consistent with endstage renal disease. ASSESSMENT: 1. Status post cardiac arrest. The patient continues to be nonverbal. 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 2. Respiratory distress. Patient continues to have significant chest findings and chest x-ray this morning looks worse. I think is a combination of fluid overload for which she is getting dialysis and aspirations. 3. Anoxic brain injury with seizures. Patient is on Celebrex and Keppra. 4. Anemia. Hemoglobin and hematocrit are relatively stable. 5. Right upper extremity swelling. PLAN: In general, the patient continues to be nonverbal, noncommunicative. I think she is going to be in a persistent vegetative state secondary to the severe anoxic brain injury. We are pending bed availability to transfer her to LT.
[2016-06-04] MEDS: LEVAQUIN 250 MG/D5W 50 ML IV SCH (17:33)
[2016-06-04] MEDS: KEPPRA 750 MG in NS 100 ML IV SCH (17:33)
--- NOTE | 2016-06-04 19:59 | PROGRESS NOTE ---
DATE: 06/04/2016 PRESENT ILLNESS: Patient has a bilateral pneumonia. She is status post cardiac arrest and has anoxic encephalopathy. MEDICATIONS: Patient is receiving meropenem and Levaquin. This is day 8. The patient is receiving a combination of cefepime which is being given after each dialysis and Levaquin, which she has been given in a reduced dose at 250 mg every 24 hours. She had been on vancomycin but this was discontinued. PHYSICAL EXAMINATION: Vital Signs: Temperature is 98, pulse 104, respirations 30, blood pressure is 120/82. General: This is an ill-appearing, elderly female who is in no acute distress. Lungs: Clear to auscultation. Cardiovascular: Regular heart rate. Abdomen: Soft and nontender. Extremities: The arms are swollen and the patient has an AV fistula in the right arm which is very swollen. LAB AND X-RAY: The chest x-ray shows worsening of the left lung infiltrate and stable right lung infiltrate. The patient's CBC shows a white count of 13,920, hemoglobin 7.5 and platelet count 266,000. Creatinine is 3.4. GFR is 16. ASSESSMENT AND PLAN: The patient has a Pseudomonas pneumonia for which she is receiving cefepime and Levaquin. She has developed worsening renal failure. COMORBIDITIES: Include end-stage renal disease, hemodialysis, anoxic encephalopathy, and now acute renal failure.
[2016-06-04] MEDS: DULCOLAX PR SCH (20:10)
[2016-06-05] MEDS: XOPENEX NEB INH SCH ×4 (03:53→15:56)
[2016-06-05] MEDS: CEREBYX IV SCH ×2 (04:37→12:42)
[2016-06-05 07:20] LABS: MANUAL DIFF NEEDED? NO
[2016-06-05 07:29] LABS: BASO% 0.5 % (0.0-0.8); EOS# 0.33 X1000 (0.0-0.7); EOS% 3.3 % (0.0-10.0); HEMATOCRIT 27.1 % (37.0-47.0); HEMOGLOBIN 9.4 g/dL (12.0-16.0); IMM GRAN# 0.14 X1000 (0.0-0.04); IMM GRAN% 1.4 % (0.0-0.5); LYMPH# 0.61 X1000 (1.2-3.4); LYMPH% 6.1 % (20.5-51.1); MCH 29.7 PG (27-31); MCHC 34.7 g/dL (33-37); MCV 85.5 FL (81-99); MONO# 0.52 X1000 (0.11-0.59); MONO% 5.2 % (1.7-9.3); MPV 11.5 FL (7.4-10.4); NEUT% 83.5 % (42.2-75.2); PLT 202 X1000 (130-400); RBC 3.17 XMIL (4.2-5.4)
--- NOTE | 2016-06-05 07:40 | Diag Imaging Result Document ---
PROCEDURE NAME: CHEST-PORTABLE - 06/05/2016 SINGLE FRONTAL RADIOGRAPH OF THE CHEST: COMPARISON: 06/04/2016. FINDINGS: NG tube projects below the diaphragm and out of the field of view. There has been interval improvement of the infiltrate in the left mid lung zone. Infiltrate at the right lung base is approximately stable. No new consolidation is identified. Cardiac silhouette is stable. IMPRESSION: Interval improvement of infiltrate on the left. Otherwise, stable.
[2016-06-05 08:10] LABS: ALBUMIN 2.5 g/dL (3.5-5.0); CALCIUM 10.1 mg/dL (8.8-10.2); POTASSIUM 5.4 mmol/L (3.5-5.1)
[2016-06-05] MEDS: PROTONIX IV SCH (08:14)
[2016-06-05] MEDS: SODIUM CHLORIDE 0.9% INJ SCH (08:14)
[2016-06-05] MEDS: MUCOMYST 20% INH SCH (08:34)
[2016-06-05] MEDS ORDERED: D50W 250 ML, AMINOSYN 15% 500 ML, LIPOSYN 20% 250 ML IV SCH ×3 (08:45)
[2016-06-05] MEDS ORDERED: NS 2,000 ML ONE (08:57)
--- NOTE | 2016-06-05 09:07 | PROGRESS NOTE ---
DATE: 06/05/2016 SUBJECTIVE: No change. OBJECTIVE: Vital Signs: Blood pressure 122/59, heart rate 72, respirations 20, afebrile. Intake 1.3 L; output 1.8 L. HEENT Exam: On physical exam, eyes are open, unresponsive Skin: Warm and dry. Eyes: Conjunctivae are pink. Neck: Neck veins are not visible. Heart: Regular. Lungs: Have equal breath sounds with diffuse rhonchi and crackles. Abdomen: Soft, nontender. Bowel sounds are present. Extremities: Have 2+ edema in both upper extremities. LABORATORY DATA: Sodium 139, potassium 5.4, chloride 102, bicarbonate 19, BUN 14, creatinine 2.1, hemoglobin 9.4. IMPRESSION: 1. End-stage kidney disease: Slow, low, efficiency daily dialysis again today with a goal of 2-3 liters to exclude volume as component of her pulmonary dysfunction. 2. Anemia, improved following transfusion. 3. Nutrition: Intravenous and parenteral nutrition with dialysis.
[2016-06-05] MEDS: TEARISOL OPH SOLUTION OPH SCH ×3 (09:34→17:39)
[2016-06-05] MEDS: CORDARONE 360 MG/D5W 200 ML IV SCH (09:35)
--- NOTE | 2016-06-05 12:09 | DISCHARGE SUMMARY ---
ADMISSION DATE: 05/12/2016 DISCHARGE DATE: 06/05/2016 CONSULTATIONS DURING THIS ADMISSION: 1. Cardiology was consulted. Patient has been seen by Dr. Tanner. 2. Pulmonary medicine consulted. Patient was seen by Dr. Abbasi. 3. Neurology was consulted. Patient was seen by Dr. Harris. 4. Nephrology was consulted. Patient was seen by Dr. Posaads. 5. Infectious Disease was consulted. Patient was seen by Dr. Lafleur. 6. Surgery was consulted. Patient was seen by Dr. Vergara. INVASIVE PROCEDURES DONE: A right femoral central line was placed by Dr. Vergara on admission. IMAGING STUDIES OF SIGNIFICANCE: 1. A head CT scan and spine was done on presentation, showing multilevel degenerative disease. 2. An echocardiogram was done on 05/12/2016 which showed ejection fraction 56, moderately enlarged left ventricle, impaired left ventricle relaxation, moderate to severe pulmonary hypertension. 3. EEG was done 2 times and showed abnormal encephalogram but no clear evidence of seizures. ADMISSION DIAGNOSES: 1. Respiratory arrest. 2. End-stage renal disease. 3. Diabetes. DIAGNOSES AT THE TIME OF TRANSFER: 1. Status post cardiac arrest. 2. Altered mental status. 3. Anoxic brain injury with seizures. 4. Likely permanent vegetative state. 5. Acute respiratory failure. 6. Aspiration pneumonia. 7. End-stage renal disease, on hemodialysis. 8. Anemia, stable. 9. Congestive heart failure, both diastolic and systolic. 10. Pulmonary hypertension, likely due to underlying heart disease. PRESENTING COMPLAINTS: Shortness of breath, cardiac arrest. HISTORY OF PRESENTING COMPLAINT: Ms. Corley is a 66-year-old female with multiple comorbidities, including endstage renal disease, congestive heart failure, dyslipidemia, and previous stroke, who went initially to her primary care doctor. I understand that while she was in the waiting room her son noticed that his mother was unresponsive, and immediately started CPR and called EMS. The patient was intubated in the field by EMS and was brought into the Emergency Department. We are not quite sure how long it took EMS to arrive and what was her initial rhythm. In any case, patient was brought in already intubated and unresponsive. The patient was admitted to the ICU for continued care. HOSPITAL STAY: The patient did not really recover her mentation throughout the hospital stay. She was successfully extubated a couple of days after arrival. Patient was seen by the multiple subspecialties mentioned above. Palliative Medicine also saw her. Multiple conversations were held with the family members. At this point, I think they still want everything to be done. The patient is getting her dialysis as scheduled. She has been treated extensively for pneumonias and is currently on antibiotics. Blood pressure also occasionally goes low, especially during dialysis, and we have her on phenylephrine. On presentation, patient did develop some seizures, and Neurology saw the patient and put her on fosphenytoin and Keppra, which she continues to be on. The patient is relatively stable now. She would continue with the amiodarone drip because of atrial fibrillation and rapid ventricular response, which has been controlled. She continues with the current antibiotics, which include cefepime and levofloxacin. She continues the anti seizure medications. The patient continues to be hemodynamically stable, but she is still very critical and I think she will be in permanent vegetative state for a very long time. The patient will be transferred to the [facility] to continue further medical care. TIME SPENT FOR DISCHARGE: 36 minutes.
[2016-06-05] MEDS: TRANSDERM-SCOP TD SCH (12:42)
[2016-06-05 15:15] VITALS: BP 125/72
[2016-06-05] MEDS: KEPPRA 750 MG in NS 100 ML IV SCH (17:39)
[2016-06-05] MEDS: LEVAQUIN 250 MG/D5W 50 ML IV SCH (17:44)
== END 2016-06-05 19:05 | DRG 208 ==
LOC: EDBD → ED 13:49 → ICU 17:02
PROVIDERS: ATTEND Internal Medicine
PROC: 5A1945Z Respiratory Ventilation, 24-96 Consecutive Hours (ICD-10-PCS; principal; 2016-05-12)
PROC: 5A12012 Performance of Cardiac Output, Single, Manual (ICD-10-PCS; 2016-05-12)
PROC: 06HM33Z Insertion of Infusion Device into Right Femoral Vein, Percutaneous Approach (ICD-10-PCS; 2016-05-12)
PROC: 049 Lower Arteries, Drainage (ICD-10-PCS; 2016-05-12)
PROC: 5A1D60Z (ICD-10-PCS; 2016-05-13)
PROC: 3E0G76Z Introduction of Nutritional Substance into Upper GI, Via Natural or Artificial Opening (ICD-10-PCS; 2016-05-20)
PROC: 30233N1 Transfusion of Nonautologous Red Blood Cells into Peripheral Vein, Percutaneous Approach (ICD-10-PCS; 2016-05-27)
DX: J96.01 Acute respiratory failure with hypoxia (principal); R57.0 Cardiogenic shock; R65.20 Severe sepsis without septic shock; E43 Unspecified severe protein-calorie malnutrition; A41.9 Sepsis, unspecified organism; G93.1 Anoxic brain damage, not elsewhere classified; J15.1 Pneumonia due to Pseudomonas; I13.2 Hypertensive heart and chronic kidney disease with heart failure and with stage 5 chronic kidney disease, or end stage renal disease; N18.6 End stage renal disease; R40.3 Persistent vegetative state; E87.2 Acidosis; E87.3 Alkalosis; I27.2 Other secondary pulmonary hypertension; I50.9 Heart failure, unspecified; I69.320 Aphasia following cerebral infarction; I69.391 Dysphagia following cerebral infarction; E78.5 Hyperlipidemia, unspecified; F32.9 Major depressive disorder, single episode, unspecified; F01.50 Vascular dementia, unspecified severity, without behavioral disturbance, psychotic disturbance, mood disturbance, and anxiety; I25.10 Atherosclerotic heart disease of native coronary artery without angina pectoris; D63.8 Anemia in other chronic diseases classified elsewhere; E11.22 Type 2 diabetes mellitus with diabetic chronic kidney disease; E11.649 Type 2 diabetes mellitus with hypoglycemia without coma; R74.8 Abnormal levels of other serum enzymes; Z66 Do not resuscitate; E66.9 Obesity, unspecified; E87.5 Hyperkalemia; K59.00 Constipation, unspecified; E83.52 Hypercalcemia; H18.413 Arcus senilis, bilateral; Z79.899 Other long term (current) drug therapy; Z82.49 Family history of ischemic heart disease and other diseases of the circulatory system; Z85.3 Personal history of malignant neoplasm of breast; Z68.24 Body mass index [BMI] 24.0-24.9, adult
CPT/HCPCS: 31500; 70450; 71010; 71020; 71250; 72125; 74000; 74176; 76700; 80048; 80053; 80069; 80177; 80185; 81001; 82140; 82270; 82550; 82553; 82607; 82805; 82948; 83605; 83735; 83880; 83970; 84100; 84439; 84443; 84484; 85025; 85027; 85379; 85610; 85730; 86850; 86900; 86901; 86920; 87040; 87070; 87077; 87088; 87186; 87205; 87804; 89220; 93005; 93010; 93306; 94003; 94640; 94762; 95816; 96365; 96366; 96375; C9113; G0480; J0171; J0282; J0692; J1644; J1650; J1940; J1953; J2060; J2185; J2270; J2370; J2765; J3360; J3370; J7030; J7040; J7050; J7060; J7120; P9016; P9047; P9612; Q2009; 80324; 80345; 80346; 80349; 80353; 80358; 80361; 80365; 83992; 97110-GP; 99285-25; S0164